=== PATIENT | female | born 1955 | race Caucasian/White ===

== ENCOUNTER → 2017-09-09 09:42 | Outpatient (CLI) | payer MEDICARE, SELFPAY ==
[2017-09-09 12:05] LABS: Absolute Lymphocyte Count 1.05 X10^3/ul (0.83-4.51); Absolute Neutrophil Count 4.3 X10^3/uL (2.0-7.7); Basophil# 0.03 X10^3/uL; Basophil% 0.5 % (0-1); Eosinophil# 0.11 X10^3/uL; Eosinophils% 1.8 % (0-5); Hematocrit 44.1 % (37-47); Hemoglobin 13.9 g/dl (12.0-15.0); Lymphocyte # 1.05 X10^3/ul (4.0); Lymphocyte % 17.5 % (19-41); Mean Corp Hgb Conc 31.5 g/gl (32-36); Mean Corpuscular Hgb 32.3 pg (27.0-32.0); Mean Corpuscular Volume 102.6 fL (81-99); Mean Platelet Vol. 10.1 fl (6.2-12.0); Monocyte# 0.54 X10^3/uL; Neutrophil # 4.25 X10^3/uL (2.7-7.7); Neutrophil % 70.9 % (47-70); Platelet Count 192 K/mm3 (150-450); RBC Distribution Width CV 14.4 % (11.6-14.6); RBC Distribution Width SD 52.9 fl (35.1-43.9)
[2017-09-09 12:07] LABS: POSITIVE COUNT NO; POSITIVE DIFFERENTIAL NO; POSITIVE MORPHOLOGY NO
[2017-09-09 12:17] LABS: ALB/GLOB Ratio 1.2 RATIO (0.9-2.4); AST(SGOT) 18 U/L (15-37); Alanine Aminotransfer ALT/SGPT 21 U/L (13-56); Albumin, Serum 3.6 g/dL (3.2-5.0); Alkaline Phosphatase 89 U/L (45-117); Anion Gap 8 (5-15); BUN 8 mg/dL (7-18); BUN/Creat Ratio 8.4 RATIO (10-20); Calcium,Total 9.3 mg/dL (8.5-10.1); Chloride 106 mmol/L (98-107); Creatinine, Serum 0.95 mg/dL (0.55-1.02); EST Glomerular Filtration Rate 63 mL/min (>60); Est Glom Filt Rate - Afr Amer 77 mL/min (>60); Globulin 3.1 g/dL (2.2-4.2); Glucose 96 mg/dL (74-106); Protein, Total 6.7 g/dL (6.4-8.2); Sodium Level 141 mmol/L (136-145); T4 Free Direct 1.73 ng/dL (0.76-1.46)
[2017-09-10 09:44] LABS: T3 Total - Triiodothyronine 0.95 ng/mL (0.6-1.81)
== END ==
PROVIDERS: Family Provider Family Medicine; PCP Family Medicine; Visit Provider Internal Medicine Rheumatology
DX: M05.79 Rheumatoid arthritis with rheumatoid factor of multiple sites without organ or systems involvement (principal); M17.0 Bilateral primary osteoarthritis of knee; E03.9 Hypothyroidism, unspecified; Z79.899 Other long term (current) drug therapy
CPT/HCPCS: 36415; 80053; 84439; 84443; 84480; 85025

== ENCOUNTER → 2017-12-07 09:10 | Outpatient (CLI) | payer MEDICARE, SELFPAY ==
--- NOTE | 2017-12-07 09:10 | DT_ITS ---
This patient was seen during an EMR downtime December 06, 2017 - December 13, 2017. This patient may have a combination of paper and electronic documentation or all paper documentation. All documentation is viewable within the e-chart portion of [employer] for each patient visit.
[2017-12-10 09:45] LABS: AST(SGOT) 16 U/L (15-37); Alanine Aminotransfer ALT/SGPT 18 U/L (13-56); Albumin, Serum 3.4 g/dL (3.2-5.0); Alkaline Phosphatase 91 U/L (45-117); Anion Gap 9 (5-15); BUN 11 mg/dL (7-18); BUN/Creat Ratio 12.1 RATIO (10-20); Chloride 109 mmol/L (98-107); Creatinine, Serum 0.91 mg/dL (0.55-1.02); EST Glomerular Filtration Rate 67 mL/min (>60); Est Glom Filt Rate - Afr Amer 81 mL/min (>60); Globulin 3.4 g/dL (2.2-4.2); Glucose 109 mg/dL (74-106); Potassium 4.3 mmol/L (3.5-5.1); Protein, Total 6.8 g/dL (6.4-8.2); Sodium Level 143 mmol/L (136-145)
[2017-12-13 17:39] LABS: Basophil% 0.3 % (0-1); Eosinophils% 0.3 % (0-5); Hematocrit 44.5 % (37-47); Hemoglobin 14.4 g/dl (12.0-15.0); Lymphocyte % 12.1 % (19-41); Mean Corp Hgb Conc 32.4 g/gl (32-36); Mean Corpuscular Hgb 33.6 pg (27.0-32.0); Mean Corpuscular Volume 103.7 fL (81-99); Mean Platelet Vol. 10.6 fl (6.2-12.0); Monocyte% 5.7 % (0-10); Neutrophil % 81.4 % (47-70); POSITIVE COUNT NO; POSITIVE DIFFERENTIAL NO; POSITIVE MORPHOLOGY NO; Platelet Count 221 K/mm3 (150-450); RBC Distribution Width CV 14.1 % (11.6-14.6); RBC Distribution Width SD 53.3 fl (35.1-43.9); Red Blood Count 4.29 M/mm3 (4.2-5.4)
[2017-12-13 17:40] LABS: Absolute Lymphocyte Count 0.72 X10^3/ul (0.83-4.51); Absolute Neutrophil Count 4.9 X10^3/uL (2.0-7.7); Basophil# 0.02 X10^3/uL; Eosinophil# 0.02 X10^3/uL; Lymphocyte # 0.72 X10^3/ul (4.0); Monocyte# 0.34 X10^3/uL; Neutrophil # 4.86 X10^3/uL (2.7-7.7)
== END ==
PROVIDERS: Family Provider Family Medicine; PCP Family Medicine; Visit Provider Internal Medicine Rheumatology
DX: M05.741 Rheumatoid arthritis with rheumatoid factor of right hand without organ or systems involvement (principal); Z79.899 Other long term (current) drug therapy; M17.0 Bilateral primary osteoarthritis of knee; E03.9 Hypothyroidism, unspecified
CPT/HCPCS: 36415; 80053; 85025

== ENCOUNTER → 2017-12-15 09:08 | Outpatient (CLI) | payer MEDICARE, SELFPAY ==
[2017-12-15 11:20] LABS: T4 Free Direct 1.68 ng/dL (0.76-1.46)
[2017-12-15 11:37] LABS: T3 Total - Triiodothyronine 0.82 ng/mL (0.6-1.81)
== END ==
PROVIDERS: Family Provider Family Medicine; PCP Family Medicine; Visit Provider Family Medicine
DX: E03.9 Hypothyroidism, unspecified (principal)
CPT/HCPCS: 36415; 84439; 84443; 84480

== ENCOUNTER → 2018-02-16 09:38 | Outpatient (CLI) | payer MEDICARE, SELFPAY ==
[2018-02-16 12:40] LABS: Absolute Neutrophil Count 3.8 X10^3/uL (2.0-7.7); Basophil# 0.03 X10^3/uL; Basophil% 0.5 % (0-1); Eosinophil# 0.13 X10^3/uL; Eosinophils% 2.3 % (0-5); Hematocrit 45.2 % (37-47); Hemoglobin 14.1 g/dl (12.0-15.0); Lymphocyte % 26.9 % (19-41); Mean Corp Hgb Conc 31.2 g/gl (32-36); Mean Corpuscular Hgb 32.6 pg (27.0-32.0); Mean Corpuscular Volume 104.6 fL (81-99); Mean Platelet Vol. 10.7 fl (6.2-12.0); Monocyte# 0.11 X10^3/uL; Neutrophil % 68.1 % (47-70); Platelet Count 188 K/mm3 (150-450); RBC Distribution Width CV 14.4 % (11.6-14.6); RBC Distribution Width SD 54.6 fl (35.1-43.9); Red Blood Count 4.32 M/mm3 (4.2-5.4); White Blood Count 5.6 K/mm3 (4.4-11.0)
[2018-02-16 12:44] LABS: POSITIVE COUNT NO; POSITIVE DIFFERENTIAL NO; POSITIVE MORPHOLOGY NO
[2018-02-16 12:54] LABS: T3 Total - Triiodothyronine 0.85 ng/mL (0.6-1.81)
[2018-02-16 13:06] LABS: ALB/GLOB Ratio 1.1 RATIO (0.9-2.4); AST(SGOT) 25 U/L (15-37); Alanine Aminotransfer ALT/SGPT 25 U/L (13-56); Albumin, Serum 3.6 g/dL (3.2-5.0); Alkaline Phosphatase 86 U/L (45-117); Anion Gap 5 (5-15); BUN 12 mg/dL (7-18); Chloride 108 mmol/L (98-107); EST Glomerular Filtration Rate 60 mL/min (>60); Est Glom Filt Rate - Afr Amer 72 mL/min (>60); Globulin 3.2 g/dL (2.2-4.2); Glucose 80 mg/dL (74-106); Protein, Total 6.8 g/dL (6.4-8.2); Sodium Level 140 mmol/L (136-145); T4 Free Direct 1.59 ng/dL (0.76-1.46); Thyroid Stim Hormone (TSH) 1.64 uIU/mL (0.358-3.74)
== END ==
PROVIDERS: Family Provider Family Medicine; PCP Family Medicine; Visit Provider Family Medicine
DX: M05.741 Rheumatoid arthritis with rheumatoid factor of right hand without organ or systems involvement (principal); E03.9 Hypothyroidism, unspecified; M17.0 Bilateral primary osteoarthritis of knee; Z79.899 Other long term (current) drug therapy
CPT/HCPCS: 36415; 80053; 84439; 84443; 84480; 85025

== ENCOUNTER → 2018-05-18 09:54 | Outpatient (CLI) | payer MEDICARE, SELFPAY ==
[2018-05-18 12:14] LABS: Absolute Lymphocyte Count 0.95 X10^3/ul (0.83-4.51); Absolute Neutrophil Count 5.7 X10^3/uL (2.0-7.7); Basophil# 0.02 X10^3/uL; Basophil% 0.3 % (0-1); Eosinophil# 0.05 X10^3/uL; Eosinophils% 0.7 % (0-5); Hematocrit 42.5 % (37-47); Hemoglobin 14.4 g/dl (12.0-15.0); Lymphocyte # 0.95 X10^3/ul (4.0); Lymphocyte % 13.2 % (19-41); Mean Corp Hgb Conc 33.9 g/gl (32-36); Mean Corpuscular Hgb 34.2 pg (27.0-32.0); Mean Platelet Vol. 10.3 fl (6.2-12.0); Monocyte# 0.43 X10^3/uL; Neutrophil # 5.74 X10^3/uL (2.7-7.7); Neutrophil % 79.7 % (47-70); Platelet Count 210 K/mm3 (150-450); RBC Distribution Width CV 13.6 % (11.6-14.6); RBC Distribution Width SD 50.5 fl (35.1-43.9); Red Blood Count 4.21 M/mm3 (4.2-5.4); White Blood Count 7.2 K/mm3 (4.4-11.0)
[2018-05-18 12:23] LABS: POSITIVE COUNT NO; POSITIVE DIFFERENTIAL NO; POSITIVE MORPHOLOGY NO
[2018-05-18 12:32] LABS: AST(SGOT) 16 U/L (15-37); Alanine Aminotransfer ALT/SGPT 23 U/L (13-56); Albumin, Serum 3.5 g/dL (3.2-5.0); Alkaline Phosphatase 90 U/L (45-117); Anion Gap 8 (5-15); BUN 10 mg/dL (7-18); BUN/Creat Ratio 10.5 RATIO (10-20); Calcium,Total 9.1 mg/dL (8.5-10.1); Chloride 107 mmol/L (98-107); Creatinine, Serum 0.95 mg/dL (0.55-1.02); EST Glomerular Filtration Rate 63 mL/min (>60); Est Glom Filt Rate - Afr Amer 76 mL/min (>60); Globulin 3.5 g/dL (2.2-4.2); Glucose 93 mg/dL (74-106); Sodium Level 143 mmol/L (136-145)
[2018-05-18 12:40] LABS: Cholesterol 187 mg/dL (200); High Density Lipoprotein 60 mg/dL; T3 Total - Triiodothyronine 0.63 ng/mL (0.6-1.81); T4 Free Direct 1.45 ng/dL (0.76-1.46); Thyroid Stim Hormone (TSH) 1.11 uIU/mL (0.358-3.74); Triglycerides 74 mg/dL; Very Low Density Lipoprotein 15 mg/dL (5-40)
== END ==
PROVIDERS: Internal Medicine Rheumatology; Family Provider Family Medicine; PCP Family Medicine; Referring Provider Family Medicine; Visit Provider Family Medicine
DX: M05.70 Rheumatoid arthritis with rheumatoid factor of unspecified site without organ or systems involvement (principal); M17.0 Bilateral primary osteoarthritis of knee; E03.9 Hypothyroidism, unspecified; E78.5 Hyperlipidemia, unspecified; Z79.899 Other long term (current) drug therapy
CPT/HCPCS: 36415; 80053; 80061; 84439; 84443; 84480; 85025

== ENCOUNTER → 2018-08-18 09:55 | Outpatient (CLI) | payer MEDICARE, SELFPAY ==
[2018-08-18 12:24] LABS: Absolute Lymphocyte Count 1.45 X10^3/ul (0.83-4.51); Absolute Neutrophil Count 4.1 X10^3/uL (2.0-7.7); Basophil# 0.03 X10^3/uL; Basophil% 0.5 % (0-1); Eosinophil# 0.16 X10^3/uL; Eosinophils% 2.6 % (0-5); Hematocrit 46.3 % (37-47); Hemoglobin 14.7 g/dl (12.0-15.0); Lymphocyte # 1.45 X10^3/ul (4.0); Lymphocyte % 23.3 % (19-41); Mean Corp Hgb Conc 31.7 g/gl (32-36); Mean Corpuscular Hgb 33.3 pg (27.0-32.0); Mean Corpuscular Volume 104.8 fL (81-99); Mean Platelet Vol. 10.4 fl (6.2-12.0); Monocyte# 0.47 X10^3/uL; Monocyte% 7.6 % (0-10); Neutrophil # 4.08 X10^3/uL (2.7-7.7); Neutrophil % 65.5 % (47-70); Platelet Count 196 K/mm3 (150-450); RBC Distribution Width CV 14.3 % (11.6-14.6); RBC Distribution Width SD 53.7 fl (35.1-43.9); Red Blood Count 4.42 M/mm3 (4.2-5.4); White Blood Count 6.2 K/mm3 (4.4-11.0)
[2018-08-18 12:25] LABS: POSITIVE COUNT NO; POSITIVE DIFFERENTIAL NO; POSITIVE MORPHOLOGY NO
[2018-08-18 12:45] LABS: ALB/GLOB Ratio 1.1 RATIO (0.9-2.4); AST(SGOT) 19 U/L (15-37); Alanine Aminotransfer ALT/SGPT 25 U/L (13-56); Albumin, Serum 3.7 g/dL (3.2-5.0); Alkaline Phosphatase 90 U/L (45-117); Anion Gap 10 (5-15); BUN 12 mg/dL (7-18); BUN/Creat Ratio 11.3 RATIO (10-20); Calcium,Total 9.1 mg/dL (8.5-10.1); Chloride 107 mmol/L (98-107); Creatinine, Serum 1.06 mg/dL (0.55-1.02); EST Glomerular Filtration Rate 56 mL/min (>60); Est Glom Filt Rate - Afr Amer 67 mL/min (>60); Globulin 3.3 g/dL (2.2-4.2); Glucose 92 mg/dL (74-106); Potassium 3.9 mmol/L (3.5-5.1); Sodium Level 141 mmol/L (136-145)
[2018-08-18 12:52] LABS: T3 Total - Triiodothyronine 0.79 ng/mL (0.6-1.81); T4 Free Direct 1.27 ng/dL (0.76-1.46); Thyroid Stim Hormone (TSH) 3.54 uIU/mL (0.358-3.74)
== END ==
PROVIDERS: Family Provider Family Medicine; PCP Family Medicine; Referring Provider Internal Medicine Rheumatology; Visit Provider Internal Medicine Rheumatology
DX: M05.70 Rheumatoid arthritis with rheumatoid factor of unspecified site without organ or systems involvement (principal); M17.0 Bilateral primary osteoarthritis of knee; E03.9 Hypothyroidism, unspecified; Z79.899 Other long term (current) drug therapy
CPT/HCPCS: 36415; 80053; 84439; 84443; 84480; 85025

== ENCOUNTER → 2018-11-09 10:10 | Outpatient (CLI) | payer MEDICARE, SELFPAY ==
[2018-11-09 12:36] LABS: Absolute Lymphocyte Count 0.99 X10^3/ul (0.83-4.51); Absolute Neutrophil Count 4.4 X10^3/uL (2.0-7.7); Basophil# 0.02 X10^3/uL; Basophil% 0.3 % (0-1); Eosinophil# 0.14 X10^3/uL; Eosinophils% 2.3 % (0-5); Hematocrit 44.3 % (37-47); Hemoglobin 14.1 g/dl (12.0-15.0); Lymphocyte # 0.99 X10^3/ul (4.0); Lymphocyte % 16.2 % (19-41); Mean Corp Hgb Conc 31.8 g/gl (32-36); Mean Corpuscular Hgb 33.1 pg (27.0-32.0); Mean Platelet Vol. 10.8 fl (6.2-12.0); Monocyte# 0.56 X10^3/uL; Monocyte% 9.2 % (0-10); Neutrophil # 4.39 X10^3/uL (2.7-7.7); Neutrophil % 71.7 % (47-70); Platelet Count 206 K/mm3 (150-450); RBC Distribution Width CV 14.4 % (11.6-14.6); Red Blood Count 4.26 M/mm3 (4.2-5.4); White Blood Count 6.1 K/mm3 (4.4-11.0)
[2018-11-09 12:46] LABS: POSITIVE COUNT NO; POSITIVE DIFFERENTIAL NO; POSITIVE MORPHOLOGY NO
[2018-11-09 12:59] LABS: T3 Total - Triiodothyronine 0.68 ng/mL (0.6-1.81)
[2018-11-09 13:16] LABS: ALB/GLOB Ratio 1.1 RATIO (0.9-2.4); AST(SGOT) 15 U/L (15-37); Alanine Aminotransfer ALT/SGPT 24 U/L (13-56); Albumin, Serum 3.5 g/dL (3.2-5.0); Alkaline Phosphatase 86 U/L (45-117); Anion Gap 9 (5-15); BUN 10 mg/dL (7-18); BUN/Creat Ratio 10.1 RATIO (10-20); Calcium,Total 8.9 mg/dL (8.5-10.1); Chloride 108 mmol/L (98-107); Creatinine, Serum 0.99 mg/dL (0.55-1.02); EST Glomerular Filtration Rate 60 mL/min (>60); Est Glom Filt Rate - Afr Amer 72 mL/min (>60); Globulin 3.3 g/dL (2.2-4.2); Glucose 90 mg/dL (74-106); Potassium 3.9 mmol/L (3.5-5.1); Protein, Total 6.8 g/dL (6.4-8.2); Sodium Level 140 mmol/L (136-145); T4 Free Direct 1.53 ng/dL (0.76-1.46); Thyroid Stim Hormone (TSH) 3.56 uIU/mL (0.358-3.74)
== END ==
PROVIDERS: Family Provider Family Medicine; PCP Family Medicine; Referring Provider Internal Medicine Rheumatology; Visit Provider Internal Medicine Rheumatology
DX: M05.70 Rheumatoid arthritis with rheumatoid factor of unspecified site without organ or systems involvement (principal); M17.0 Bilateral primary osteoarthritis of knee; E03.9 Hypothyroidism, unspecified; Z79.899 Other long term (current) drug therapy
CPT/HCPCS: 36415; 80053; 84439; 84443; 84480; 85025

== ENCOUNTER → 2019-02-09 09:06 | Outpatient (CLI) | payer MEDICARE, SELFPAY ==
[2019-02-09 10:03] LABS: Absolute Lymphocyte Count 1.38 X10^3/uL (0.83-4.51); Absolute Neutrophil Count 4.5 X10^3/uL (2.0-7.7); Basophil# 0.03 X10^3/uL; Basophil% 0.5 % (0-1); Eosinophil# 0.07 X10^3/uL; Eosinophils% 1.1 % (0-5); Hematocrit 44.4 % (37-47); Hemoglobin 14.5 g/dL (12.0-15.0); Lymphocyte # 1.38 X10^3/ul (4.0); Lymphocyte % 20.9 % (19-41); Mean Corp Hgb Conc 32.7 g/dL (32-36); Mean Corpuscular Hgb 33.7 pg (27.0-32.0); Mean Corpuscular Volume 103.3 fL (81-99); Mean Platelet Vol. 10.2 fl (6.2-12.0); Monocyte# 0.55 X10^3/uL; Monocyte% 8.3 % (0-10); NRBC Flagged by Analyzer 0 % (0-5); Neutrophil # 4.52 X10^3/uL (2.7-7.7); Neutrophil % 68.6 % (47-70); Platelet Count 200 K/mm3 (150-450); RBC Distribution Width CV 14.2 % (11.6-14.6); RBC Distribution Width SD 53.4 fl (35.1-43.9); White Blood Count 6.6 K/mm3 (4.4-11.0)
[2019-02-09 10:29] LABS: T3 Total - Triiodothyronine 0.76 ng/mL (0.6-1.81)
[2019-02-09 10:31] LABS: T4 Free Direct 1.48 ng/dL (0.76-1.46); Thyroid Stim Hormone (TSH) 2.93 uIU/mL (0.358-3.74)
[2019-02-09 10:36] LABS: ALB/GLOB Ratio 1.1 RATIO (0.9-2.4); AST(SGOT) 17 U/L (15-37); Alanine Aminotransfer ALT/SGPT 26 U/L (13-56); Albumin, Serum 3.7 g/dL (3.2-5.0); Alkaline Phosphatase 83 U/L (45-117); Anion Gap 8 (5-15); BUN 13 mg/dL (7-18); BUN/Creat Ratio 11.8 RATIO (10-20); Calcium,Total 9.7 mg/dL (8.5-10.1); Chloride 108 mmol/L (98-107); EST Glomerular Filtration Rate 53 mL/min (>60); Est Glom Filt Rate - Afr Amer 64 mL/min (>60); Globulin 3.3 g/dL (2.2-4.2); Glucose 92 mg/dL (74-106); Potassium 3.9 mmol/L (3.5-5.1); Sodium Level 143 mmol/L (136-145)
== END ==
PROVIDERS: Family Provider Family Medicine; PCP Family Medicine; Referring Provider Internal Medicine Rheumatology; Visit Provider Internal Medicine Rheumatology
DX: M05.79 Rheumatoid arthritis with rheumatoid factor of multiple sites without organ or systems involvement (principal); M17.0 Bilateral primary osteoarthritis of knee; E03.9 Hypothyroidism, unspecified; Z79.899 Other long term (current) drug therapy
CPT/HCPCS: 36415; 80053; 84439; 84443; 84480; 85025

== ENCOUNTER → 2019-03-10 08:12 | Outpatient (CLI) | payer MEDICARE, SELFPAY ==
--- NOTE | 2019-03-10 08:15 | BI_ITS ---
MAMMOGRAPHY - BILATERAL SCREENING REASON FOR EXAM: Female, 63 years old. Routine annual screening examination. PERTINENT HISTORY: Non-contributory. TECHNIQUE: Digital bilateral breast keshawn (3D mammographic acquisition) in the CC and MLO projections. 2-D mediolateral oblique (MLO) and craniocaudad (CC) views of both breasts were obtained. CAD: Full Field Digital Mammography with Computer Added Detection was performed. COMPARISON: Comparison is made with prior study April 26, 2014 and May 16, 2012. FINDINGS: Breast Composition: There are scattered areas of fibroglandular density. There are no dominant masses or suspicious calcifications. No other significant abnormalities are identified. There has been no significant change since the prior study. BI/SCREEN MAMM (CAD) W/KESHAWN BILAT IMPRESSION: Stable bilateral screening mammogram. Yearly follow-up mammogram recommended. (A) ASSESSMENT CATEGORY: BIRADS Category 1: Negative. A letter regarding these results will be sent to the patient by the facility within 30 days. Approximately 10% of breast cancers are not detected by mammography. A normal mammogram should not delay biopsy of a clinically suspicious abnormality. [id number] Electronically Signed: Arcenio Esposito, at 9:46 EDT , Service support ,
== END ==
PROVIDERS: Family Provider Family Medicine; PCP Family Medicine; Referring Provider Family Medicine; Visit Provider Family Medicine
DX: Z12.31 Encounter for screening mammogram for malignant neoplasm of breast (principal)
CPT/HCPCS: 77063; 77067

== ENCOUNTER → 2019-05-10 09:31 | Outpatient (CLI) | payer MEDICARE, SELFPAY ==
[2019-05-10 12:25] LABS: Absolute Lymphocyte Count 0.87 X10^3/uL (0.83-4.51); Absolute Neutrophil Count 4.5 X10^3/uL (2.0-7.7); Basophil# 0.03 X10^3/uL; Basophil% 0.5 % (0-1); Eosinophils% 1.7 % (0-5); Hematocrit 44.6 % (37-47); Hemoglobin 14.1 g/dL (12.0-15.0); Lymphocyte # 0.87 X10^3/ul (4.0); Lymphocyte % 14.6 % (19-41); Mean Corp Hgb Conc 31.6 g/dL (32-36); Mean Corpuscular Hgb 33.3 pg (27.0-32.0); Mean Corpuscular Volume 105.4 fL (81-99); Mean Platelet Vol. 10.6 fl (6.2-12.0); Monocyte# 0.47 X10^3/uL; Monocyte% 7.9 % (0-10); NRBC Flagged by Analyzer 0 % (0-5); Neutrophil # 4.47 X10^3/uL (2.7-7.7); Neutrophil % 74.8 % (47-70); Platelet Count 190 K/mm3 (150-450); RBC Distribution Width CV 14.3 % (11.6-14.6); RBC Distribution Width SD 55.5 fl (35.1-43.9); Red Blood Count 4.23 M/mm3 (4.2-5.4)
[2019-05-10 12:46] LABS: ALB/GLOB Ratio 1.2 RATIO (0.9-2.4); AST(SGOT) 17 U/L (15-37); Alanine Aminotransfer ALT/SGPT 25 U/L (13-56); Albumin, Serum 3.6 g/dL (3.2-5.0); Alkaline Phosphatase 74 U/L (45-117); Anion Gap 10 (5-15); BUN 12 mg/dL (7-18); BUN/Creat Ratio 10.5 RATIO (10-20); Calcium,Total 9.2 mg/dL (8.5-10.1); Chloride 105 mmol/L (98-107); Creatinine, Serum 1.14 mg/dL (0.55-1.02); EST Glomerular Filtration Rate 51 mL/min (>60); Est Glom Filt Rate - Afr Amer 62 mL/min (>60); Globulin 3.1 g/dL (2.2-4.2); Glucose 94 mg/dL (74-106); Potassium 4.2 mmol/L (3.5-5.1); Protein, Total 6.7 g/dL (6.4-8.2); Sodium Level 141 mmol/L (136-145)
== END ==
PROVIDERS: Family Provider Family Medicine; PCP Family Medicine; Referring Provider Internal Medicine Rheumatology; Visit Provider Internal Medicine Rheumatology
DX: M05.70 Rheumatoid arthritis with rheumatoid factor of unspecified site without organ or systems involvement (principal); M17.0 Bilateral primary osteoarthritis of knee; E03.9 Hypothyroidism, unspecified; Z79.899 Other long term (current) drug therapy
CPT/HCPCS: 36415; 80053; 85025

== ENCOUNTER → 2019-08-09 09:45 | Outpatient (CLI) | payer MEDICARE, SELFPAY ==
[2019-08-09 12:23] LABS: Absolute Lymphocyte Count 1.11 X10^3/uL (0.83-4.51); Absolute Neutrophil Count 4.6 X10^3/uL (2.0-7.7); Basophil# 0.04 X10^3/uL; Basophil% 0.6 % (0-1); Eosinophil# 0.14 X10^3/uL; Eosinophils% 2.2 % (0-5); Hematocrit 44.6 % (37-47); Hemoglobin 14.6 g/dL (12.0-15.0); Lymphocyte # 1.11 X10^3/ul (4.0); Lymphocyte % 17.3 % (19-41); Mean Corp Hgb Conc 32.7 g/dL (32-36); Mean Corpuscular Hgb 34.4 pg (27.0-32.0); Mean Corpuscular Volume 104.9 fL (81-99); Mean Platelet Vol. 10.8 fl (6.2-12.0); Monocyte# 0.47 X10^3/uL; Monocyte% 7.3 % (0-10); NRBC Flagged by Analyzer 0 % (0-5); Neutrophil # 4.62 X10^3/uL (2.7-7.7); Neutrophil % 72.3 % (47-70); Platelet Count 205 K/mm3 (150-450); RBC Distribution Width CV 13.9 % (11.6-14.6); RBC Distribution Width SD 53.4 fl (35.1-43.9); Red Blood Count 4.25 M/mm3 (4.2-5.4); White Blood Count 6.4 K/mm3 (4.4-11.0)
[2019-08-09 12:36] LABS: ALB/GLOB Ratio 1.1 RATIO (0.9-2.4); AST(SGOT) 15 U/L (15-37); Alanine Aminotransfer ALT/SGPT 24 U/L (12-78); Albumin, Serum 3.6 g/dL (3.4-5.0); Alkaline Phosphatase 83 U/L (50-136); Anion Gap 5 (5-15); BUN 9 mg/dL (7-18); BUN/Creat Ratio 8.7 RATIO (10-20); Calcium,Total 9.5 mg/dL (8.5-10.1); Chloride 108 mmol/L (98-107); Creatinine, Serum 1.04 mg/dL (0.55-1.20); EST Glomerular Filtration Rate 57 mL/min (>60); Est Glom Filt Rate - Afr Amer 69 mL/min (>60); Globulin 3.3 g/dL (2.3-3.5); Glucose 87 mg/dL (70-110); Potassium 3.8 mmol/L (3.5-5.1); Protein, Total 6.9 g/dL (6.4-8.2); Sodium Level 140 mmol/L (136-145)
[2019-08-09 12:44] LABS: T4 Free Direct 1.27 ng/dL (0.76-1.46); Thyroid Stim Hormone (TSH) 7.22 uIU/mL (0.358-3.74)
[2019-08-09 13:21] LABS: T3 Total - Triiodothyronine 0.74 ng/mL (0.6-1.81)
== END ==
PROVIDERS: PCP Family Medicine; Referring Provider Internal Medicine Rheumatology; Visit Provider Internal Medicine Rheumatology
DX: M05.70 Rheumatoid arthritis with rheumatoid factor of unspecified site without organ or systems involvement (principal); M17.0 Bilateral primary osteoarthritis of knee; E03.9 Hypothyroidism, unspecified; Z79.899 Other long term (current) drug therapy
CPT/HCPCS: 36415; 80053; 84439; 84443; 84480; 85025

== ENCOUNTER → 2019-11-13 12:41 | Outpatient (CLI) | payer MEDICARE, SELFPAY ==
[2019-11-13 14:52] LABS: Absolute Lymphocyte Count 0.78 X10^3/uL (0.83-4.51); Absolute Neutrophil Count 5.7 X10^3/uL (2.0-7.7); Basophil# 0.05 X10^3/uL; Basophil% 0.7 % (0-1); Eosinophil# 0.09 X10^3/uL; Eosinophils% 1.2 % (0-5); Hematocrit 43.2 % (37-47); Hemoglobin 13.9 g/dL (12.0-15.0); Lymphocyte # 0.78 X10^3/ul (4.0); Lymphocyte % 10.7 % (19-41); Mean Corp Hgb Conc 32.2 g/dL (32-36); Mean Corpuscular Hgb 33.6 pg (27.0-32.0); Mean Corpuscular Volume 104.3 fL (81-99); Monocyte# 0.63 X10^3/uL; Monocyte% 8.7 % (0-10); NRBC Flagged by Analyzer 0 % (0-5); Neutrophil # 5.68 X10^3/uL (2.7-7.7); Neutrophil % 78.1 % (47-70); Platelet Count 181 K/mm3 (150-450); RBC Distribution Width CV 14.6 % (11.6-14.6); RBC Distribution Width SD 55.2 fl (35.1-43.9); Red Blood Count 4.14 M/mm3 (4.2-5.4); White Blood Count 7.3 K/mm3 (4.4-11.0)
[2019-11-13 15:14] LABS: ALB/GLOB Ratio 1.1 RATIO (0.9-2.4); AST(SGOT) 16 U/L (15-37); Alanine Aminotransfer ALT/SGPT 22 U/L (13-56); Albumin, Serum 3.7 g/dL (3.2-5.0); Alkaline Phosphatase 84 U/L (45-117); Anion Gap 8 (5-15); BUN 13 mg/dL (7-18); BUN/Creat Ratio 13.1 RATIO (10-20); Calcium,Total 9.1 mg/dL (8.5-10.1); Chloride 108 mmol/L (98-107); EST Glomerular Filtration Rate 60 mL/min (>60); Est Glom Filt Rate - Afr Amer 72 mL/min (>60); Free T3 2.2 pg/mL (2.18-3.98); Globulin 3.4 g/dL (2.2-4.2); Glucose 103 mg/dL (74-106); Potassium 3.6 mmol/L (3.5-5.1); Protein, Total 7.1 g/dL (6.4-8.2); Sodium Level 140 mmol/L (136-145); T4 Free Direct 1.43 ng/dL (0.76-1.46); Thyroid Stim Hormone (TSH) 2.31 uIU/mL (0.358-3.74)
== END ==
PROVIDERS: PCP Family Medicine; Referring Provider Family Medicine; Visit Provider Family Medicine
DX: M05.70 Rheumatoid arthritis with rheumatoid factor of unspecified site without organ or systems involvement (principal); M17.0 Bilateral primary osteoarthritis of knee; E03.9 Hypothyroidism, unspecified; Z79.899 Other long term (current) drug therapy
CPT/HCPCS: 36415; 80053; 84439; 84443; 84481; 85025

== ENCOUNTER → 2020-02-02 09:51 | Outpatient (CLI) | payer MEDICARE, SELFPAY ==
[2020-02-02 12:16] LABS: Absolute Lymphocyte Count 0.82 X10^3/uL (0.83-4.51); Absolute Neutrophil Count 4.9 X10^3/uL (2.0-7.7); Basophil# 0.04 X10^3/uL; Basophil% 0.6 % (0-1); Eosinophil# 0.07 X10^3/uL; Eosinophils% 1.1 % (0-5); Hematocrit 44.9 % (37-47); Hemoglobin 14.2 g/dL (12.0-15.0); Lymphocyte # 0.82 X10^3/ul (4.0); Lymphocyte % 12.7 % (19-41); Mean Corp Hgb Conc 31.6 g/dL (32-36); Mean Corpuscular Hgb 33.6 pg (27.0-32.0); Mean Corpuscular Volume 106.1 fL (81-99); Mean Platelet Vol. 10.3 fl (6.2-12.0); Monocyte# 0.67 X10^3/uL; Monocyte% 10.3 % (0-10); NRBC Flagged by Analyzer 0 % (0-5); Neutrophil # 4.86 X10^3/uL (2.7-7.7); Platelet Count 192 K/mm3 (150-450); RBC Distribution Width CV 14.8 % (11.6-14.6); RBC Distribution Width SD 57.1 fl (35.1-43.9); Red Blood Count 4.23 M/mm3 (4.2-5.4); White Blood Count 6.5 K/mm3 (4.4-11.0)
[2020-02-02 12:47] LABS: ALB/GLOB Ratio 1.1 RATIO (0.9-2.4); AST(SGOT) 15 U/L (15-37); Alanine Aminotransfer ALT/SGPT 19 U/L (13-56); Albumin, Serum 3.7 g/dL (3.2-5.0); Alkaline Phosphatase 81 U/L (45-117); Anion Gap 6 (5-15); BUN 13 mg/dL (7-18); Calcium,Total 9.1 mg/dL (8.5-10.1); Chloride 108 mmol/L (98-107); Creatinine, Serum 0.93 mg/dL (0.55-1.02); EST Glomerular Filtration Rate 64 mL/min (>60); Est Glom Filt Rate - Afr Amer 78 mL/min (>60); Globulin 3.4 g/dL (2.2-4.2); Glucose 91 mg/dL (74-106); Protein, Total 7.1 g/dL (6.4-8.2); Sodium Level 140 mmol/L (136-145); T4 Free Direct 1.74 ng/dL (0.76-1.46); Thyroid Stim Hormone (TSH) 1.22 uIU/mL (0.358-3.74)
[2020-02-02 22:29] LABS: Free T3 2.6 pg/mL (2.18-3.98)
== END ==
PROVIDERS: PCP Family Medicine; Referring Provider Family Medicine; Visit Provider Family Medicine
DX: M05.79 Rheumatoid arthritis with rheumatoid factor of multiple sites without organ or systems involvement (principal); M17.0 Bilateral primary osteoarthritis of knee; E03.9 Hypothyroidism, unspecified; Z79.899 Other long term (current) drug therapy
CPT/HCPCS: 36415; 80053; 84439; 84443; 84481; 85025

== ENCOUNTER → 2020-04-26 10:37 | Outpatient (CLI) | payer MEDICARE, SELFPAY ==
[2020-04-26 12:15] LABS: Absolute Lymphocyte Count 0.89 X10^3/uL (0.83-4.51); Absolute Neutrophil Count 4.2 X10^3/uL (2.0-7.7); Basophil# 0.05 X10^3/uL; Basophil% 0.9 % (0-1); Eosinophil# 0.07 X10^3/uL; Eosinophils% 1.2 % (0-5); Hematocrit 46.5 % (37-47); Hemoglobin 14.4 g/dL (12.0-15.0); Lymphocyte # 0.89 X10^3/ul (4.0); Lymphocyte % 15.1 % (19-41); Mean Corpuscular Hgb 33.5 pg (27.0-32.0); Mean Corpuscular Volume 108.1 fL (81-99); Mean Platelet Vol. 9.9 fl (6.2-12.0); Monocyte% 10.2 % (0-10); NRBC Flagged by Analyzer 0 % (0-5); Neutrophil # 4.23 X10^3/uL (2.7-7.7); Neutrophil % 71.9 % (47-70); Platelet Count 221 K/mm3 (150-450); RBC Distribution Width CV 14.6 % (11.6-14.6); RBC Distribution Width SD 57.7 fl (35.1-43.9); White Blood Count 5.9 K/mm3 (4.4-11.0)
[2020-04-26 12:28] LABS: ALB/GLOB Ratio 1.1 RATIO (0.9-2.4); AST(SGOT) 14 U/L (15-37); Alanine Aminotransfer ALT/SGPT 20 U/L (13-56); Albumin, Serum 3.7 g/dL (3.2-5.0); Alkaline Phosphatase 85 U/L (45-117); Anion Gap 8 (5-15); BUN 11 mg/dL (7-18); BUN/Creat Ratio 10.2 RATIO (10-20); Calcium,Total 9.5 mg/dL (8.5-10.1); Chloride 105 mmol/L (98-107); Creatinine, Serum 1.08 mg/dL (0.55-1.02); EST Glomerular Filtration Rate 54 mL/min (>60); Est Glom Filt Rate - Afr Amer 66 mL/min (>60); Globulin 3.3 g/dL (2.2-4.2); Glucose 93 mg/dL (74-106); Potassium 4.1 mmol/L (3.5-5.1); Sodium Level 140 mmol/L (136-145)
== END ==
LOC: LAB.FUTURE 10:41 → MTLAB 04-29 08:31
PROVIDERS: PCP Family Medicine; Referring Provider Internal Medicine Rheumatology; Visit Provider Internal Medicine Rheumatology
DX: M05.79 Rheumatoid arthritis with rheumatoid factor of multiple sites without organ or systems involvement (principal); M17.0 Bilateral primary osteoarthritis of knee; E03.9 Hypothyroidism, unspecified; Z79.899 Other long term (current) drug therapy
CPT/HCPCS: 36415; 80053; 85025

== ENCOUNTER → 2020-07-12 09:32 | Outpatient (CLI) | payer MEDICARE, SELFPAY ==
[2020-07-12 12:31] LABS: Absolute Lymphocyte Count 0.92 X10^3/uL (0.83-4.51); Absolute Neutrophil Count 4.2 X10^3/uL (2.0-7.7); Basophil# 0.02 X10^3/uL; Basophil% 0.3 % (0-1); Eosinophil# 0.11 X10^3/uL; Eosinophils% 1.9 % (0-5); Hematocrit 46.2 % (37-47); Hemoglobin 14.5 g/dL (12.0-15.0); Lymphocyte # 0.92 X10^3/ul (4.0); Lymphocyte % 15.8 % (19-41); Mean Corp Hgb Conc 31.4 g/dL (32-36); Mean Corpuscular Hgb 33.6 pg (27.0-32.0); Mean Corpuscular Volume 106.9 fL (81-99); Mean Platelet Vol. 10.7 fl (6.2-12.0); Monocyte# 0.54 X10^3/uL; Monocyte% 9.3 % (0-10); NRBC Flagged by Analyzer 0 % (0-5); Neutrophil % 72.2 % (47-70); Platelet Count 188 K/mm3 (150-450); RBC Distribution Width CV 14.1 % (11.6-14.6); RBC Distribution Width SD 55.8 fl (35.1-43.9); Red Blood Count 4.32 M/mm3 (4.2-5.4); White Blood Count 5.8 K/mm3 (4.4-11.0)
[2020-07-12 13:00] LABS: ALB/GLOB Ratio 1.3 RATIO (0.9-2.4); AST(SGOT) 14 U/L (15-37); Alanine Aminotransfer ALT/SGPT 23 U/L (13-56); Albumin, Serum 3.9 g/dL (3.2-5.0); Alkaline Phosphatase 81 U/L (45-117); Anion Gap 3 (5-15); BUN 12 mg/dL (7-18); BUN/Creat Ratio 13.3 RATIO (10-20); Calcium,Total 9.4 mg/dL (8.5-10.1); Chloride 109 mmol/L (98-107); EST Glomerular Filtration Rate 67 mL/min (>60); Est Glom Filt Rate - Afr Amer 81 mL/min (>60); Free T3 2.4 pg/mL (2.18-3.98); Globulin 3.1 g/dL (2.2-4.2); Glucose 88 mg/dL (74-106); Potassium 3.8 mmol/L (3.5-5.1); Sodium Level 143 mmol/L (136-145); T4 Free Direct 1.48 ng/dL (0.76-1.46); Thyroid Stim Hormone (TSH) 0.73 uIU/mL (0.358-3.74)
== END ==
PROVIDERS: PCP Family Medicine; Referring Provider Family Medicine; Visit Provider Family Medicine
DX: E03.9 Hypothyroidism, unspecified (principal)
CPT/HCPCS: 36415; 80053; 84439; 84443; 84481; 85025

== ENCOUNTER → 2020-10-11 09:36 | Outpatient (CLI) | payer MEDICARE, SELFPAY ==
[2020-10-11 12:37] LABS: Absolute Lymphocyte Count 1.02 X10^3/uL (0.83-4.51); Absolute Neutrophil Count 3.9 X10^3/uL (2.0-7.7); Basophil# 0.04 X10^3/uL; Basophil% 0.7 % (0-1); Eosinophil# 0.13 X10^3/uL; Eosinophils% 2.3 % (0-5); Hematocrit 45.7 % (37-47); Hemoglobin 13.9 g/dL (12.0-15.0); Lymphocyte # 1.02 X10^3/ul (4.0); Lymphocyte % 17.9 % (19-41); Mean Corp Hgb Conc 30.4 g/dL (32-36); Mean Corpuscular Volume 108.6 fL (81-99); Mean Platelet Vol. 9.7 fl (6.2-12.0); Monocyte# 0.58 X10^3/uL; Monocyte% 10.2 % (0-10); NRBC Flagged by Analyzer 0 % (0-5); Neutrophil # 3.89 X10^3/uL (2.7-7.7); Neutrophil % 68.2 % (47-70); Platelet Count 216 K/mm3 (150-450); RBC Distribution Width CV 14.5 % (11.6-14.6); RBC Distribution Width SD 57.8 fl (35.1-43.9); Red Blood Count 4.21 M/mm3 (4.2-5.4); White Blood Count 5.7 K/mm3 (4.4-11.0)
[2020-10-11 13:17] LABS: ALB/GLOB Ratio 1.1 RATIO (0.9-2.4); AST(SGOT) 13 U/L (15-37); Alanine Aminotransfer ALT/SGPT 20 U/L (13-56); Alkaline Phosphatase 81 U/L (45-117); Anion Gap 7 (5-15); BUN 11 mg/dL (7-18); BUN/Creat Ratio 11.5 RATIO (10-20); Calcium,Total 9.4 mg/dL (8.5-10.1); Chloride 105 mmol/L (98-107); Creatinine, Serum 0.95 mg/dL (0.55-1.02); EST Glomerular Filtration Rate 62 mL/min (>60); Est Glom Filt Rate - Afr Amer 76 mL/min (>60); Globulin 3.5 g/dL (2.2-4.2); Glucose 97 mg/dL (74-106); Potassium 3.7 mmol/L (3.5-5.1); Protein, Total 7.5 g/dL (6.4-8.2); Sodium Level 142 mmol/L (136-145)
== END ==
PROVIDERS: PCP Family Medicine; Referring Provider Internal Medicine Rheumatology; Visit Provider Internal Medicine Rheumatology
DX: M05.70 Rheumatoid arthritis with rheumatoid factor of unspecified site without organ or systems involvement (principal); Z79.899 Other long term (current) drug therapy; M17.0 Bilateral primary osteoarthritis of knee; E03.9 Hypothyroidism, unspecified
CPT/HCPCS: 36415; 80053; 85025

== ENCOUNTER 2021-11-29 17:31 | Observation (INO) | payer MEDICARE, SELFPAY ==
[2021-11-29 17:33] VITALS: BP 180/94; PULSE 69; RESP 15; TEMP 36.9; O2SAT 95; BMI 58.6
[2021-11-29 17:35] VITALS: BP 180/94; PULSE 69; RESP 15; TEMP 36.9; O2SAT 95
--- NOTE | 2021-11-29 17:50 | EKG12_ITS ---
Test Reason : WEAKNESS Blood Pressure : / mmHG Vent. Rate : 066 BPM Atrial Rate : 066 BPM P-R Int : 172 ms QRS Dur : 084 ms QT Int : 408 ms P-R-T Axes : 049 016 023 degrees QTc Int : 427 ms Normal sinus rhythm Normal ECG Confirmed by BHUPINDER BAIG, HELEN ([id number]), pictures editor ZACH YIN ([id number]) on 12/02/2021 1:13:16 PM Referred By: ISMAEL/BISMARK Confirmed By:HELEN ROE MD
--- NOTE | 2021-11-29 17:53 | NURSING ---
NO OLD EKGS
[2021-11-29] MEDS: Morphine 4 MG/ML Syringe IV (17:56)
[2021-11-29] MEDS: Ondansetron 4 MG/2 ML Vial IV (17:56)
--- NOTE | 2021-11-29 18:01 | EX.ED.DYSGE1 ---
HPI <SANDRA Tomas - Last Filed: 11/29/21 18:55> History of Present Illness Chief Complaint: Weakness Narrative Narrative: 66-year-old female with history of rheumatoid arthritis, hypothyroidism who for the last 2 years has not been following up with her specialist or PCP. Patient lives at a house by herself, patient over the last 6 to 8 months has gradually declined to where she can no longer get out of bed by herself, she cannot leave the house or her room. Patient has so much pain in her joints, she no longer close her fingers, both legs are severely edematous and she finally listened to family and came to the emergency department. The family and the patient both agree that she cannot return home secondary to not being able to care for herself. She also needs put back on all different kind of medications for rheumatoid arthritis as well as hypothyroidism. Patient denies any fevers or chills. Patient denies any infectious symptoms PFSH <SANDRA Tomas - Last Filed: 11/29/21 18:55> PFSH Medical History Arthritis Ex-smoker Home Medications acetaminophen [Tylenol Ex Str Arthritis Pain] 1,000 mg PO DAILY 11/29/21 [History Last Taken 11/28/21] ibuprofen [Advil] 800 mg PO DAILY 11/29/21 [History Last Taken Unknown] Allergy/AdvReac Type Severity Reaction Status Date / Time No Known Allergies Allergy Verified 11/29/21 17:35 Family History (Updated 11/29/21 @ 21:[address] Ajith Villavicencio MD) Other Hypertension Surgical History History of tonsillectomy Social History (Updated 11/29/21 @ 21:[address] Ajith Villavicencio MD) Smoking Status: Former smoker ROS <SANDRA Tomas - Last Filed: 11/29/21 18:55> ROS ED ROS Narrative Constitutional: Negative for fever, chills, weight loss. Positive for generalized weakness Eyes: Negative for vision loss, vision change, double vision ENT: Negative for any sore throat, ear pain, congestion Cardiovascular: Negative for any chest pain, tightness, palpitations Respiratory: Negative for any cough, sputum production, hemoptysis, dyspnea, dyspnea on exertion, orthopnea Gastrointestinal: Negative for any abdominal pain, nausea, vomiting, diarrhea, constipation, blood in stool, blood in vomit : Negative for any urinary frequency, dysuria, retention, blood in urine Muscle skeletal: Negative for any neck pain, back pain. Positive for myalgias, arthralgias, joint stiffness to shoulders knees, hands. Neurological: Negative for any headache, syncope, numbness or tingling, dizziness Skin: Negative for any rashes, lumps, itching, abrasions, lacerations Psychiatric: Negative for any anxiety, stress, suicidal ideation, homicidal ideation. Positive for generalized feeling of depression Hematologic: Negative for any easy bruising, excessive bruising, easy bleeding Allergies: Negative for any eczema, hives, rash EXAM <SANDRA Tomas - Last Filed: 11/29/21 18:55> Physical Exam Narrative Exam Narrative: Vital signs reviewed. Patient is alert and orient x4. HEET: Head normocephalic atraumatic, TMs clear bilaterally. Posterior pharynx is clear, moist mucous membranes. Nares clear bilaterally. Neck: Supple with no lymphadenopathy or tenderness. No signs of meningismus, negative jolt sign. Cardiac: Regular rate and rhythm no murmurs gallops or rubs, equal peripheral pulses bilaterally. Respiratory: Lungs clear to auscultation bilaterally. No chest tenderness. Abdomen: Soft, nontender, nondistended. No abdominal bruit or pulsatile masses. No hepatosplenomegaly Extremities: Patient has severe swelling to bilateral lower extremities. This is not pitting, this has been ongoing and getting worse over the last 5 months according to family. Patient legs way so much that she is unable to lift them off the bed, walk without a walker. There appears to be no cellulitis noted. Neuro: Cranial nerves II through XII intact, no focal neurological deficits. Skin: Clean dry and intact with no rash, purpura, petechiae, vesicles or pustules. Patient has dry flaking skin throughout her lower extremities. Backs/flank: No CVA tenderness, no midline spinal tenderness, no deformity. Psych: Normal mood and affect. No SI, HI or acute psychosis. Const Vital Signs: 11/29/21 17:33 11/29/21 17:35 11/29/21 18:27 Temperature 98.4 F 98.4 F Temperature Source Temporal Temporal Pulse Rate 69 69 Respiratory Rate 15 15 Respiratory Effort Normal Non-Labored Respiratory Pattern Normal Blood Pressure 180/94 H 180/94 H Blood Pressure Mean 122 122 Pulse Ox 95 95 Oxygen Delivery Method Room Air Room Air 11/29/21 19:42 Temperature Temperature Source Pulse Rate 55 L Respiratory Rate 18 Respiratory Effort Respiratory Pattern Blood Pressure 161/99 H Blood Pressure Mean 119 Pulse Ox 94 Oxygen Delivery Method Room Air Positive obese Nutritional Appearance: obese <Dr. Jerry Norris DO - Last Filed: 11/29/21 23:56> Physical Exam Const Vital Signs: 11/29/21 17:33 11/29/21 17:35 11/29/21 18:27 Temperature 98.4 F 98.4 F Temperature Source Temporal Temporal Pulse Rate 69 69 Respiratory Rate 15 15 Respiratory Effort Normal Non-Labored Respiratory Pattern Normal Blood Pressure 180/94 H 180/94 H Blood Pressure Mean 122 122 Pulse Ox 95 95 Oxygen Delivery Method Room Air Room Air 11/29/21 19:42 Temperature Temperature Source Pulse Rate 55 L Respiratory Rate 18 Respiratory Effort Respiratory Pattern Blood Pressure 161/99 H Blood Pressure Mean 119 Pulse Ox 94 Oxygen Delivery Method Room Air MDM <SANDRA Tomas - Last Filed: 11/29/21 18:55> [facility] MDM Narrative Medical decision making narrative: Patient appears alert, patient is nontoxic, vital signs are stable. Patient presents to the emergency department with ongoing untreated rheumatoid arthritis, hypothyroidism, and on ability to care for self. Patient did receive multiple laboratory values including inflammatory values, TSH, patient CBC was unremarkable, patient's urinalysis was negative for any infection. Patient goal is to be admitted to the hospital for more [id number] care and to possibly be placed in a rehab facility/senior living. Lab Data Labs: Laboratory Results - last 24 hr 11/29/21 11/29/21 11/29/21 18:10 18:25 18:25 WBC 6.2 RBC 3.51 L Hgb 11.5 L Hct 37.0 MCV 105.4 H MCH 32.8 H MCHC 31.1 L RDW Std Deviation 55.8 H RDW Coeff of Carla 14.3 Plt Count 216 MPV 10.8 Immature Gran % (Auto) 0.500 Neut % (Auto) 79.0 H Lymph % (Auto) 11.4 L [place] % (Auto) 6.4 Eos % (Auto) 2.1 Baso % (Auto) 0.6 Absolute Neuts (auto) 4.9 Absolute Lymphs (auto) 0.71 L Nucleated RBC % 0 ESR 44 H Sodium 140 Potassium 4.0 Chloride 108 H Carbon Dioxide 28.0 Anion Gap 4 L BUN 13 Creatinine 0.81 Estim Creat Clear Calc 49.07 Est GFR (MDRD) Af Amer 91 Est GFR (MDRD) Non-Af 75 BUN/Creatinine Ratio 16.1 Glucose 99 Calcium 9.3 Total Bilirubin 0.50 AST 16 ALT 11 L Alkaline Phosphatase 86 C-React Prot Ext Range 21.50 H B-Natriuretic Peptide Total Protein 6.7 Albumin 3.3 Globulin 3.4 Albumin/Globulin Ratio 1.0 TSH 114.00 H Urine Color Yellow Urine Clarity Clear Urine pH 7.0 Ur Specific [place] 1.010 Urine Protein Negative Urine Glucose (UA) Normal Urine Ketones Negative Urine Occult Blood 10 H Urine Nitrite Negative Urine Bilirubin Negative Urine Urobilinogen 1 H Ur Leukocyte Esterase Negative Urine RBC 0-5 SEEN Urine WBC 0-5 SEEN Ur Squamous Epith Cells 0 SEEN Ur Transition Epith Cell 0-5 SEEN Urine Bacteria 0 SEEN Urine Mucus 0 SEEN 11/29/21 18:25 WBC RBC Hgb Hct MCV MCH MCHC RDW Std Deviation RDW Coeff of Carla Plt Count MPV Immature Gran % (Auto) Neut % (Auto) Lymph % (Auto) [place] % (Auto) Eos % (Auto) Baso % (Auto) Absolute Neuts (auto) Absolute Lymphs (auto) Nucleated RBC % ESR Sodium Potassium Chloride Carbon Dioxide Anion Gap BUN Creatinine Estim Creat Clear Calc Est GFR (MDRD) Af Amer Est GFR (MDRD) Non-Af BUN/Creatinine Ratio Glucose Calcium Total Bilirubin AST ALT Alkaline Phosphatase C-React Prot Ext Range B-Natriuretic Peptide 53.8 Total Protein Albumin Globulin Albumin/Globulin Ratio TSH Urine Color Urine Clarity Urine pH Ur Specific [place] Urine Protein Urine Glucose (UA) Urine Ketones Urine Occult Blood Urine Nitrite Urine Bilirubin Urine Urobilinogen Ur Leukocyte Esterase Urine RBC Urine WBC Ur Squamous Epith Cells Ur Transition Epith Cell Urine Bacteria Urine Mucus Radiography Diagnostic Testing: Clinical Impression(s) from Imaging Studies Chest X-Ray 11/29/21 18:19 IMPRESSION: Mild lingula and minimal bibasilar fibrosis. Mild biapical pleural thickening. Borderline cardiomegaly. Atherosclerotic vascular calcification of aortic arch and mildly tortuous descending aorta. Flattening of the superior medial humeral head which could be due to avascular necrosis. Underlying osteoarthritis right glenohumeral joint. Electronically Signed: Bobby Mendieta MD, JAGUAR at 18:42 EDT , <Dr. Jerry Norris, DO - Last Filed: 11/29/21 23:56> MDM MDM Narrative Medical decision making narrative: This patient was seen with a PA/CARPENTRY FOREMAN Individually assessed they patient including history and physical. I have reviewed everything on the chart that is available and agree with the documentation provided by the PA/CARPENTRY FOREMAN including discussion about the assessment, treatment plan, discussion, and return precautions. Patient presenting with generalized fatigue and failure to thrive. She has been off her medications for an extended period of time. There does appear to be some depression issues. Patient's blood work here today shows white blood cell count of 6.2, hemoglobin 1.5 with a last comparison a year ago slightly higher. She does not express to me that she has any black or bloody stools however. Renal function and electrolytes are normal. ESR is elevated at 44 and CRP elevated at 21.5. TSH is elevated at 114 which is consistent with the patient having thyroid disease. Urinalysis negative for infection. Ultimately the patient will need to be admitted because he is unable to care for herself anymore. Patient was discussed with the hospitalist for admission. Impression: 1. Generalized weakness 2. Failure to thrive 3. Hypothyroidism 4. Medical noncompliance Lab Data Attestation: I reviewed the patient's lab results. Labs: Laboratory Results - last 24 hr 11/29/21 11/29/21 11/29/21 18:10 18:25 18:25 WBC 6.2 RBC 3.51 L Hgb 11.5 L Hct 37.0 MCV 105.4 H MCH 32.8 H MCHC 31.1 L RDW Std Deviation 55.8 H RDW Coeff of Carla 14.3 Plt Count 216 MPV 10.8 Immature Gran % (Auto) 0.500 Neut % (Auto) 79.0 H Lymph % (Auto) 11.4 L [place] % (Auto) 6.4 Eos % (Auto) 2.1 Baso % (Auto) 0.6 Absolute Neuts (auto) 4.9 Absolute Lymphs (auto) 0.71 L Nucleated RBC % 0 ESR 44 H Sodium 140 Potassium 4.0 Chloride 108 H Carbon Dioxide 28.0 Anion Gap 4 L BUN 13 Creatinine 0.81 Estim Creat Clear Calc 49.07 Est GFR (MDRD) Af Amer 91 Est GFR (MDRD) Non-Af 75 BUN/Creatinine Ratio 16.1 Glucose 99 Calcium 9.3 Total Bilirubin 0.50 AST 16 ALT 11 L Alkaline Phosphatase 86 C-React Prot Ext Range 21.50 H B-Natriuretic Peptide Total Protein 6.7 Albumin 3.3 Globulin 3.4 Albumin/Globulin Ratio 1.0 TSH 114.00 H Urine Color Yellow Urine Clarity Clear Urine pH 7.0 Ur Specific [place] 1.010 Urine Protein Negative Urine Glucose (UA) Normal Urine Ketones Negative Urine Occult Blood 10 H Urine Nitrite Negative Urine Bilirubin Negative Urine Urobilinogen 1 H Ur Leukocyte Esterase Negative Urine RBC 0-5 SEEN Urine WBC 0-5 SEEN Ur Squamous Epith Cells 0 SEEN Ur Transition Epith Cell 0-5 SEEN Urine Bacteria 0 SEEN Urine Mucus 0 SEEN 11/29/21 18:25 WBC RBC Hgb Hct MCV MCH MCHC RDW Std Deviation RDW Coeff of Carla Plt Count MPV Immature Gran % (Auto) Neut % (Auto) Lymph % (Auto) [place] % (Auto) Eos % (Auto) Baso % (Auto) Absolute Neuts (auto) Absolute Lymphs (auto) Nucleated RBC % ESR Sodium Potassium Chloride Carbon Dioxide Anion Gap BUN Creatinine Estim Creat Clear Calc Est GFR (MDRD) Af Amer Est GFR (MDRD) Non-Af BUN/Creatinine Ratio Glucose Calcium Total Bilirubin AST ALT Alkaline Phosphatase C-React Prot Ext Range B-Natriuretic Peptide 53.8 Total Protein Albumin Globulin Albumin/Globulin Ratio TSH Urine Color Urine Clarity Urine pH Ur Specific [place] Urine Protein Urine Glucose (UA) Urine Ketones Urine Occult Blood Urine Nitrite Urine Bilirubin Urine Urobilinogen Ur Leukocyte Esterase Urine RBC Urine WBC Ur Squamous Epith Cells Ur Transition Epith Cell Urine Bacteria Urine Mucus Radiography Diagnostic Testing: Clinical Impression(s) from Imaging Studies Chest X-Ray 11/29/21 18:19 IMPRESSION: Mild lingula and minimal bibasilar fibrosis. Mild biapical pleural thickening. Borderline cardiomegaly. Atherosclerotic vascular calcification of aortic arch and mildly tortuous descending aorta. Flattening of the superior medial humeral head which could be due to avascular necrosis. Underlying osteoarthritis right glenohumeral joint. Electronically Signed: Bobby Mendieta MD, JAGUAR at 18:42 EDT , Discharge Plan Disposition Disposition: Acute Care Hospital [facility] Discharge Date/Time: 11/29/21 22:12
[2021-11-29 18:16] LABS: Bacteria 0 SEEN /hpf (None Seen); Color, Urine Yellow (Yellow); Glucose, Dipstick Normal (Normal); Ketone-Dipstick Negative (Negative); Leukocyte Esterase-Dipstick Negative /ul (Negative); Mucous, Urine 0 SEEN /hpf (<or=2+); Nitrite-Dipstick Negative (Negative); Occult Blood-Urine 10 /ul (Negative); Protein-Dipstick Negative (Negative); Squamous Epithelial Cells - UA 0 SEEN /hpf (5-10); Urine Bilirubin Dipstick Negative (Negative); Urine Clarity Clear (Clear); Urine Urobilinogen 1 mg/dl (Normal)
--- NOTE | 2021-11-29 18:19 | RAD_ITS ---
STUDY: X-RAY CHEST REASON FOR EXAM: Female, 66 years old. Swelling TECHNIQUE: Frontal view COMPARISON: None. FINDINGS: The lungs demonstrate mild lingular and minimal bibasilar fibrosis. Mild biapical pleural thickening. Borderline cardiomegaly. Normal mediastinum and law. Normal visualized pulmonary arteries. Atherosclerotic vascular calcification of aortic arch. Mildly tortuous descending aorta. Normal visualized thoracic spine. There is flattening of the superior medial right humeral head and moderate joint space narrowing of the glenohumeral joint. This flattening may be due to avascular necrosis or old trauma. There is no demonstrated abnormality of the visualized soft tissue structures of the upper abdomen. RAD/Chest 1 View (Portable) IMPRESSION: Mild lingula and minimal bibasilar fibrosis. Mild biapical pleural thickening. Borderline cardiomegaly. Atherosclerotic vascular calcification of aortic arch and mildly tortuous descending aorta. Flattening of the superior medial humeral head which could be due to avascular necrosis. Underlying osteoarthritis right glenohumeral joint. Electronically Signed: Bobby Mendieta MD, JAGUAR at 18:42 EDT ,
[2021-11-29 18:35] LABS: Absolute Lymphocyte Count 0.71 X10^3/uL (0.83-4.51); Absolute Neutrophil Count 4.9 X10^3/uL (2.0-7.7); Basophil# 0.04 X10^3/uL; Basophil% 0.6 % (0-1); Eosinophil# 0.13 X10^3/uL; Eosinophils% 2.1 % (0-5); Hemoglobin 11.5 g/dL (12.0-15.0); Lymphocyte # 0.71 X10^3/ul (0.83-4.51); Lymphocyte % 11.4 % (19-41); Mean Corp Hgb Conc 31.1 g/dL (32-36); Mean Corpuscular Hgb 32.8 pg (27.0-32.0); Mean Corpuscular Volume 105.4 fL (81-99); Mean Platelet Vol. 10.8 fl (6.2-12.0); Monocyte% 6.4 % (0-10); NRBC Flagged by Analyzer 0 % (0-5); Neutrophil # 4.93 X10^3/uL (2.7-7.7); Platelet Count 216 K/mm3 (150-450); RBC Distribution Width CV 14.3 % (11.6-14.6); RBC Distribution Width SD 55.8 fl (35.1-43.9); Red Blood Count 3.51 M/mm3 (4.2-5.4); White Blood Count 6.2 K/mm3 (4.4-11.0)
[2021-11-29 18:37] LABS: Red Blood Cells-Urine 0-5 SEEN /hpf (0-5); Transitional Epithelial - Ur 0-5 SEEN /hpf (0-5); White Blood Cells 0-5 SEEN /hpf (0-5)
[2021-11-29 19:08] LABS: AST(SGOT) 16 U/L (15-37); Alanine Aminotransfer ALT/SGPT 11 U/L (13-56); Albumin, Serum 3.3 g/dL (3.2-5.0); Alkaline Phosphatase 86 U/L (45-117); Anion Gap 4 (5-15); BUN 13 mg/dL (7-18); BUN/Creat Ratio 16.1 RATIO (10-20); Calcium,Total 9.3 mg/dL (8.5-10.1); Chloride 108 mmol/L (98-107); Creatinine, Serum 0.81 mg/dL (0.55-1.02); EST Glomerular Filtration Rate 75 mL/min (>60); Est Glom Filt Rate - Afr Amer 91 mL/min (>60); Estimated Creatinine Clearance 49.07 ml/min; Globulin 3.4 g/dL (2.2-4.2); Glucose 99 mg/dL (74-106); Protein, Total 6.7 g/dL (6.4-8.2); Sodium Level 140 mmol/L (136-145)
[2021-11-29 19:17] LABS: Erythrocyte Sedimentation Rate 44 mm/hr (0-30)
[2021-11-29 19:41] LABS: BNP,B-Type NATRIURETIC PEPTIDE 53.8 pg/mL (0-100)
[2021-11-29 19:42] VITALS: BP 161/99; PULSE 55; RESP 18; O2SAT 94
--- NOTE | 2021-11-29 21:04 | HP.PCM.HOS_ITS ---
HPI - General General Date of Admission: 11/29/21 HPI Narrative MAYCOL PRADO, is a 66 F with a significant history of morbid obesity; rheumatoid arthritis; and hypothyroidism who presents to emergency department with 6 months to 8 months history of progressive weakness. Patient has been too weak that she is unable to get in bed. She sleeps in a recliner. She is unable to do her activities of daily living. Her sister goes in a house to help her once in a week. Patient complains of generalized body pain. She has tramadol prescribed for over a year and that she is not taking because it does not work for her. She has been taking Tylenol and NSAID at home for pain. She said that she is swollen all over her body. She reports anorexia. She stopped seeing her special procedures nurse because reportedly her director heart would not provided enough help for her to qualify for some medications. Last time she saw her primary care Dr. Vianca Trujillo was about 1 year ago. It was via telemedicine. She report that 2 weeks ago she received a new prescription for her thyroid medicine. In the past 2 to 3 days she missed her thyroid medications [facility] Medical History (Updated 11/29/21 @ 21:[address] Ajith Villavicencio MD) Arthritis Home Medications tramadol 50 mg PO Q6H PRN 11/29/21 [History Last Taken Unknown] Allergy/AdvReac Type Severity Reaction Status Date / Time No Known Allergies Allergy Verified 11/29/21 17:35 Family History (Updated 11/29/21 @ 21:[address] Ajith Villavicencio MD) Other Hypertension Surgical History (Updated 11/29/21 @ 21:[address] Ajith Villavicencio MD) History of tonsillectomy Social History (Updated 11/29/21 @ 21:[address] Ajith Villavicencio MD) Smoking Status: Former smoker ROS ROS Narrative Pertinent positives and pertinent negatives as noted in HPI. All other systems were reviewed and are negative. Vital Signs Vital Signs Vital Signs: 11/29/21 17:33 11/29/21 17:35 11/29/21 18:27 Temperature 98.4 F 98.4 F Temperature Source Temporal Temporal Pulse Rate 69 69 Respiratory Rate 15 15 Respiratory Effort Normal Non-Labored Respiratory Pattern Normal Blood Pressure 180/94 H 180/94 H Blood Pressure Mean 122 122 Pulse Ox 95 95 Oxygen Delivery Method Room Air Room Air 11/29/21 19:42 Temperature Temperature Source Pulse Rate 55 L Respiratory Rate 18 Respiratory Effort Respiratory Pattern Blood Pressure 161/99 H Blood Pressure Mean 119 Pulse Ox 94 Oxygen Delivery Method Room Air Weight Weight: 136.078 kg Body Mass Index (BMI) 58.6 Physical Exam Narrative Physical exam: General: Morbidly obese Head: Normocephalic, atraumatic, no tenderness Eyes: Vision is grossly intact. EOMI ENT, no trauma, moist mucous membranes, no rhinorrhea Neck: Nontender, full range of motion, no spinal tenderness, deformities, step-off CVS: Regular rate and rhythm. S1-S2 present. No murmur, gallop or rub. Respiratory : clear to auscultation bilaterally, chest wall nontender, no wheezing Abdomen: Soft, nontender, nondistended, normal bowel sounds, no masses : Deferred Back: Nontender, no CVA tenderness, no midline spinal tenderness, deformities, step-offs Extremities: Nontender full range of motion, no trauma Skin: Mild erythema of bilateral legs. Normal color, no trauma, abrasions Neuro: Alert, oriented, cranial nerves II through XII grossly intact. Psychiatry: Normal mood. Normal affect. Not depressed. Not anxious. Results Lab / Micro Data Result Diagrams: 11/29/21 18:25 11/29/21 18:25 Labs: Laboratory Results - last 24 hr 11/29/21 18:10: Urine Color Yellow, Urine Clarity Clear, Urine pH 7.0, Ur Specific [place] 1.010, Urine Protein Negative, Urine Glucose (UA) Normal, Urine Ketones Negative, Urine Occult Blood 10 H, Urine Nitrite Negative, Urine Bilirubin Negative, Urine Urobilinogen 1 H, Ur Leukocyte Esterase Negative, Urine RBC 0-5 SEEN, Urine WBC 0-5 SEEN, Ur Squamous Epith Cells 0 SEEN, Ur Transition Epith Cell 0-5 SEEN, Urine Bacteria 0 SEEN, Urine Mucus 0 SEEN 11/29/21 18:25: WBC 6.2, RBC 3.51 L, Hgb 11.5 L, Hct 37.0, MCV 105.4 H, MCH 32.8 H, MCHC 31.1 L, RDW Std Deviation 55.8 H, RDW Coeff of Carla 14.3, Plt Count 216, MPV 10.8, Immature Gran % (Auto) 0.500, Neut % (Auto) 79.0 H, Lymph % (Auto) 11.4 L, [place] % (Auto) 6.4, Eos % (Auto) 2.1, Baso % (Auto) 0.6, Absolute Neuts (auto) 4.9, Absolute Lymphs (auto) 0.71 L, Nucleated RBC % 0, ESR 44 H 11/29/21 18:25: Sodium 140, Potassium 4.0, Chloride 108 H, Carbon Dioxide 28.0, Anion Gap 4 L, BUN 13, Creatinine 0.81, Estim Creat Clear Calc 49.07, Est GFR (MDRD) Af Amer 91, Est GFR (MDRD) Non-Af 75, BUN/Creatinine Ratio 16.1, Glucose 99, Calcium 9.3, Total Bilirubin 0.50, AST 16, ALT 11 L, Alkaline Phosphatase 86, C-React Prot Ext Range 21.50 H, Total Protein 6.7, Albumin 3.3, Globulin 3.4, Albumin/Globulin Ratio 1.0, TSH 114.00 H 11/29/21 18:25: B-Natriuretic Peptide 53.8 Radiology Impression Chest X-Ray 11/29/21 18:19 IMPRESSION: Mild lingula and minimal bibasilar fibrosis. Mild biapical pleural thickening. Borderline cardiomegaly. Atherosclerotic vascular calcification of aortic arch and mildly tortuous descending aorta. Flattening of the superior medial humeral head which could be due to avascular necrosis. Underlying osteoarthritis right glenohumeral joint. Electronically Signed: Bobby Mendieta MD, JAGUAR at 18:42 EDT Reading Location ID and State: [facility] / [place] Tel , Service support , Assessment & Plan Assessment/Plan (1) Weakness: (2) Rheumatoid arthritis: QUALIFIERS: Rheumatoid arthritis location: unspecified site Rheumatoid factor presence: unspecified presence Qualified Code(s): M06.9 - Rheumatoid arthritis, unspecified (3) Hypothyroidism: QUALIFIERS: Hypothyroidism type: unspecified Qualified Code(s): E03.9 - Hypothyroidism, unspecified (4) Venous stasis dermatitis: QUALIFIERS: Laterality: bilateral Qualified Code(s): I87.2 - Venous insufficiency (chronic) (peripheral) PLAN: Generalized weakness PT and OT to work with patient. Case management consult for disposition Hypothyroidism TSH is 114. Get a free T4. Resume home thyroid medications Venous stasis dermatitis Elevate bilateral lower legs Rheumatoid arthritis Labs reviewed showed a CRP of 21.50 Chronic Tylenol and ibuprofen as needed for pain. Plan to follow-up with rheumatology after discharge. Chest x-ray was visualized and independent interpreted. No acute cardiopulmonary process noted. Radiologist interpretation there is flattening of the superior medial humeral head. Consider orthopedic referral upon discharge Morbid Obesity BMI: 58.6 kg/m?. Complicates care. Lifestyle modification recommended. DVT prophylaxis Subcutaneous Lovenox ordered. Charges/Coding Visit Charges OBSV E&M: [id number] Initial observation care L3
[2021-11-29 21:12] VITALS: BP 169/87; PULSE 60; RESP 15; TEMP 37.2; O2SAT 93
[2021-11-29 22:19] VITALS: BP 143/83; PULSE 58; RESP 16; TEMP 36.8; O2SAT 97
[2021-11-29 22:32] VITALS: BMI 64.0
[2021-11-29] MEDS: Ibuprofen 400 MG Tablet PO (23:24)
[2021-11-29] MEDS: Enoxaparin 40 MG/0.4 ML Syringe SC (23:25)
[2021-11-30] MEDS: Acetaminophen 325 MG Tablet 650 MG PO (01:34)
[2021-11-30 03:40] VITALS: BP 145/72; PULSE 58; RESP 18; TEMP 36.7; O2SAT 93
[2021-11-30] MEDS: Pantoprazole Sodium 40 MG Tablet PO (05:18)
[2021-11-30] MEDS: Levothyroxine 150 MCG Tablet PO (05:18)
[2021-11-30] MEDS: Ibuprofen 600 MG Tablet PO ×3 (05:18→23:21)
[2021-11-30 06:21] LABS: Absolute Neutrophil Count 3.1 X10^3/uL (2.0-7.7); Basophil# 0.03 X10^3/uL; Basophil% 0.7 % (0-1); Eosinophil# 0.21 X10^3/uL; Eosinophils% 4.6 % (0-5); Hemoglobin 10.2 g/dL (12.0-15.0); Lymphocyte % 17.4 % (19-41); Mean Corp Hgb Conc 30.9 g/dL (32-36); Mean Corpuscular Hgb 32.7 pg (27.0-32.0); Mean Corpuscular Volume 105.8 fL (81-99); Mean Platelet Vol. 11.1 fl (6.2-12.0); Monocyte# 0.45 X10^3/uL; Monocyte% 9.8 % (0-10); NRBC Flagged by Analyzer 0 % (0-5); Neutrophil % 67.1 % (47-70); POSITIVE MORPHOLOGY YES; Platelet Count 191 K/mm3 (150-450); RBC Distribution Width CV 14.5 % (11.6-14.6); RBC Distribution Width SD 56.4 fl (35.1-43.9); Red Blood Count 3.12 M/mm3 (4.2-5.4); White Blood Count 4.6 K/mm3 (4.4-11.0)
[2021-11-30 06:22] LABS: Differential Indicated SCAN CRITERIA MET
[2021-11-30 06:50] LABS: Anion Gap 6 (5-15); BUN 11 mg/dL (7-18); BUN/Creat Ratio 15.3 RATIO (10-20); Calcium,Total 8.8 mg/dL (8.5-10.1); Chloride 105 mmol/L (98-107); Creatinine, Serum 0.72 mg/dL (0.55-1.02); EST Glomerular Filtration Rate 86 mL/min (>60); Est Glom Filt Rate - Afr Amer 104 mL/min (>60); Estimated Creatinine Clearance 39.75 ml/min; Glucose 81 mg/dL (74-106); Potassium 3.7 mmol/L (3.5-5.1); Sodium Level 140 mmol/L (136-145)
[2021-11-30 06:52] LABS: Anisocytosis 1+; Macrocytosis 1+
[2021-11-30 06:53] LABS: Atypical Lymphocyte 1+ %
--- NOTE | 2021-11-30 07:14 | PCM.PN.HOSP ---
Subjective Subjective Follow-up on debility: Patient was seen and examined she complains of bilateral tingling numbness in both hands. This has been ongoing for a while. She denied any history of carpal tunnel. No other acute events overnight. Objective Data Objective Data Vital Signs: Vital Signs Temp Pulse Resp BP Pulse Ox 98.0 F 58 L 18 145/72 H 93 11/30/21 03:40 11/30/21 03:40 11/30/21 03:40 11/30/21 03:40 11/30/21 03:40 Oxygen Delivery Method Room Air Weight: 148.6 kg Body Mass Index (BMI) 64.0 Intake & Output: Intake and Output for Last 24 Hours 11/28/21 11/29/21 11/30/21 23:59 23:59 23:59 Intake Total 200 / 200 Output Total 200 / 200 Balance 0 / 0 Lab / Micro Data Result Diagrams: 11/30/21 05:17 11/30/21 05:17 Labs: Laboratory Results - last 24 hr 11/29/21 18:10: Urine Color Yellow, Urine Clarity Clear, Urine pH 7.0, Ur Specific [place] 1.010, Urine Protein Negative, Urine Glucose (UA) Normal, Urine Ketones Negative, Urine Occult Blood 10 H, Urine Nitrite Negative, Urine Bilirubin Negative, Urine Urobilinogen 1 H, Ur Leukocyte Esterase Negative, Urine RBC 0-5 SEEN, Urine WBC 0-5 SEEN, Ur Squamous Epith Cells 0 SEEN, Ur Transition Epith Cell 0-5 SEEN, Urine Bacteria 0 SEEN, Urine Mucus 0 SEEN 11/29/21 18:25: WBC 6.2, RBC 3.51 L, Hgb 11.5 L, Hct 37.0, MCV 105.4 H, MCH 32.8 H, MCHC 31.1 L, RDW Std Deviation 55.8 H, RDW Coeff of Carla 14.3, Plt Count 216, MPV 10.8, Immature Gran % (Auto) 0.500, Neut % (Auto) 79.0 H, Lymph % (Auto) 11.4 L, [place] % (Auto) 6.4, Eos % (Auto) 2.1, Baso % (Auto) 0.6, Absolute Neuts (auto) 4.9, Absolute Lymphs (auto) 0.71 L, Nucleated RBC % 0, ESR 44 H 11/29/21 18:25: Sodium 140, Potassium 4.0, Chloride 108 H, Carbon Dioxide 28.0, Anion Gap 4 L, BUN 13, Creatinine 0.81, Estim Creat Clear Calc 49.07, Est GFR (MDRD) Af Amer 91, Est GFR (MDRD) Non-Af 75, BUN/Creatinine Ratio 16.1, Glucose 99, Calcium 9.3, Total Bilirubin 0.50, AST 16, ALT 11 L, Alkaline Phosphatase 86, C-React Prot Ext Range 21.50 H, Total Protein 6.7, Albumin 3.3, Globulin 3.4, Albumin/Globulin Ratio 1.0, TSH 114.00 H 11/29/21 18:25: B-Natriuretic Peptide 53.8 11/29/21 21:15: Free T4 0.40 L 11/30/21 05:17: WBC 4.6, RBC 3.12 L, Hgb 10.2 L, Hct 33.0 L, MCV 105.8 H, MCH 32.7 H, MCHC 30.9 L, RDW Std Deviation 56.4 H, RDW Coeff of Carla 14.5, Plt Count 191, MPV 11.1, Immature Gran % (Auto) 0.400, Neut % (Auto) 67.1, Lymph % (Auto) 17.4 L, [place] % (Auto) 9.8, Eos % (Auto) 4.6, Baso % (Auto) 0.7, Absolute Neuts (auto) 3.1, Absolute Lymphs (auto) 0.80 L, Nucleated RBC % 0, Atypical Lymphocytes 1+, Anisocytosis 1+, Macrocytosis 1+ 11/30/21 05:17: Sodium 140, Potassium 3.7, Chloride 105, Carbon Dioxide 29.0, Anion Gap 6, BUN 11, Creatinine 0.72, Estim Creat Clear Calc 39.75, Est GFR (MDRD) Af Amer 104, Est GFR (MDRD) Non-Af 86, BUN/Creatinine Ratio 15.3, Glucose 81, Calcium 8.8 Radiography Diagnostic Testing: Radiology Impression Chest X-Ray 11/29/21 18:19 IMPRESSION: Mild lingula and minimal bibasilar fibrosis. Mild biapical pleural thickening. Borderline cardiomegaly. Atherosclerotic vascular calcification of aortic arch and mildly tortuous descending aorta. Flattening of the superior medial humeral head which could be due to avascular necrosis. Underlying osteoarthritis right glenohumeral joint. Electronically Signed: Bobby Mendieta MD, JAGUAR at 18:42 EDT , Physical Exam Narrative Physical exam: General: Alert, Oriented x3, Cooperative, super morbidly obese HEENT: Atraumatic Oral: Moist Mucosa Neck: Supple Lungs: Diminished to auscultation Cardiovascular: HS I+II, regular, no murmurs Abdomen: Bowel Sounds Present, Soft, Non Tender Extremities: Bilateral lower extremity pedal edema +3, chronic bilateral lymphedema, Tinel sign positive in both wrists Skin: No rashes, No breakdown Neurological: Grossly intact Psych/Mental Status: Appropriate Assessment & Plan Assessment/Plan (1) Weakness: (2) Rheumatoid arthritis: QUALIFIERS: Rheumatoid arthritis location: unspecified site Rheumatoid factor presence: unspecified presence Qualified Code(s): M06.9 - Rheumatoid arthritis, unspecified (3) Hypothyroidism: QUALIFIERS: Hypothyroidism type: unspecified Qualified Code(s): E03.9 - Hypothyroidism, unspecified (4) Venous stasis dermatitis: QUALIFIERS: Laterality: bilateral Qualified Code(s): I87.2 - Venous insufficiency (chronic) (peripheral) PLAN: 1. Acute on chronic debility, PT and OT to evaluate and treat Patient will likely need discharge to SNF 2. Probable bilateral carpal tunnel, positive Tinel sign We will give Lasix 40 mg IV, trial of gabapentin 100 mg p.o. 3 times daily 3. Hypothyroidism, continue on Synthroid 4. Chronic bilateral pedal edema/lymphedema/venous stasis dermatitis Admitting BNP Was 53.8 Continue to elevate bilateral lower extremities 5. Rheumatoid arthritis, needs to follow-up with rheumatology in the outpatient 6. Super morbid obesity, BMI 64, complicates care 7. DVT prophylaxis - Lovenox SC Charges/Coding Visit Charges OBSV E&M: 50893 Subsequent observation care L3
[2021-11-30 09:56] VITALS: BP 137/76; PULSE 60; RESP 18; TEMP 36.4; O2SAT 93
[2021-11-30] MEDS: Loratadine 10 MG Tablet PO (10:11)
[2021-11-30] MEDS: Furosemide 40 MG/4 ML Vial IV ×2 (10:11→17:21)
[2021-11-30] MEDS: Enoxaparin 40 MG/0.4 ML Syringe SC ×2 (10:11→20:05)
[2021-11-30] MEDS: Gabapentin 100 MG Capsule PO ×2 (10:11→17:20)
[2021-11-30 15:04] VITALS: BP 141/73; PULSE 58; RESP 20; TEMP 36.9; O2SAT 93
[2021-11-30] MEDS: 0.9% Saline Lock 10 ML Syringe IV (17:21)
[2021-11-30 17:24] VITALS: BP 152/78; PULSE 58; RESP 16; O2SAT 97
[2021-11-30 20:02] VITALS: BP 133/73; PULSE 61; RESP 16; TEMP 37.2; O2SAT 91
[2021-12-01] MEDS: Acetaminophen 325 MG Tablet 650 MG PO ×3 (01:35→16:43)
[2021-12-01 01:39] VITALS: BP 123/67; PULSE 64; RESP 14; TEMP 37.3; O2SAT 93
[2021-12-01] MEDS: Levothyroxine 150 MCG Tablet PO (04:27)
[2021-12-01] MEDS: Enoxaparin 40 MG/0.4 ML Syringe SC ×2 (07:38→21:18)
[2021-12-01] MEDS: CETIRIZINE HCL 10 MG TABLET PO (07:39)
[2021-12-01] MEDS: Gabapentin 100 MG Capsule PO ×2 (07:46→12:20)
[2021-12-01] MEDS: Pantoprazole Sodium 40 MG Tablet PO (07:46)
[2021-12-01 07:52] VITALS: BP 161/82; PULSE 57; RESP 16; TEMP 36.5; O2SAT 94
[2021-12-01 07:57] VITALS: O2SAT 91
[2021-12-01 15:00] VITALS: BP 149/84; PULSE 57; RESP 16; TEMP 36.2; O2SAT 96
--- NOTE | 2021-12-01 15:50 | PN.HOSP_ITS ---
Subjective Subjective Patient was seen and examined today, she states that she has been treated for rheumatoid arthritis in the past but became frustrated and stopped all her medications. Daughter was in the room at the time my examination and I discussed the patient's medical care with her also. Patient states she has severe upper extremity weakness and decreased booking manager strength, she states that she was having a hard time moving her legs but she was given a dose of Lasix since she was admitted here and its helped greatly. She also states that she feels the Neurontin that she is taking is helping her somewhat also. I had a long discussion with her about treatment of rheumatoid arthritis, I urged her to get another opinion from a second director field services, she does not want to go back to the director field services she was seeing in town here. I noticed on admission the patient's TSH was very elevated along with low thyroid hormone levels, patient may not been taking her medications at home however-she admits she stopped several of her medications. Objective Data Objective Data Vital Signs: Vital Signs Temp Pulse Resp BP Pulse Ox 97.7 F L 57 L 16 161/82 H 91 12/01/21 07:52 12/01/21 07:52 12/01/21 07:52 12/01/21 07:52 12/01/21 07:57 Oxygen Delivery Method Room Air Weight: 148.6 kg Body Mass Index (BMI) 64.0 Intake & Output: Intake and Output for Last 24 Hours 11/29/21 11/30/21 12/01/21 23:59 23:59 23:59 Intake Total 1050 / 1170 240 / 240 Output Total 3200 / 5200 2400 / 2400 Balance -2150 / -4030 -2160 / -2160 Lab / Micro Data Result Diagrams: 11/30/21 05:17 11/30/21 05:17 Physical Exam Const alert, oriented x3 and no apparent distress Constitutional Narrative: Patient appears older than her stated age, she is morbidly obese General Appearance: cooperative, well kempt and well developed Orientation / Consciousness: awake, oriented to person, oriented to place and oriented to time Nutritional Appearance: morbidly obese HEENT normocephalic and moist oral mucous membranes Eyes PERRL, EOMs intact bilaterally and conjunctivae normal Neck nuchal rigidity, supple, no JVD, thyroid normal and no carotid bruits General: trachea midline Resp normal respiratory effort and clear to auscultation bilaterally Auscultation: Negative for rales, rhonchi or wheezes Cardio regular rate, regular rhythm, no murmurs, no rub and no gallops GI normal to inspection, nondistended, normoactive bowel sounds, soft to palpation, non-tender and non-distended GI Narrative: Patient is morbidly obese Extremity Extremity Narrative: Patient has chronic lymphedematous changes noted over both lower legs, patient also has some edema of the dorsum of her feet. Skin no rashes or lesions noted and no wounds General Skin Exam: no breakdown Neuro oriented x3, CN's II-XII intact bilaterally, no focal motor deficits and no sensory deficits noted Sensorium / Orientation: awake and alert Speech: speech normal Psych affect normal Assessment & Plan Assessment/Plan (1) Weakness: PLAN: 1. Generalized weakness-probably multifactorial in nature, deconditioning, morbid obesity, severe hypothyroidism, ? RA versus OA-I decided to place the patient on IV corticosteroids for the short period of time that she will be in the hospital, I will continue prednisone for several days after she is transferred to an extended care facility for rehab services. I urged her to follow-up with a director field services in the [place] area concerning ongoing care. I think she may benefit from a short course of corticosteroids, she will continue on a PPI while she is taking the corticosteroids and ibuprofen as needed. #2 severe hypothyroidism-secondary to noncompliance with medical treatment, patient's Synthroid will be continued #3 morbid obesity-complicates recovery, care, and prognosis. #4 severe arthritis of the right knee-it appears the patient's last knee x-rays done on her right knee at this hospital was done in 2016-this showed severe arthritic destruction of the right knee, I suspect that she will need to consider a right knee replacement I discussed this with her, she will need to follow-up as an outpatient concerning this. #5 RA versus OA-I do not have any of the patient's previous lab work done to verify she has rheumatoid arthritis, again I urged her to get an opinion from a second director field services concerning this diagnosis to facilitate treatment. Charges/Coding Visit Charges OBSV E&M: 66532 Subsequent observation care L3
[2021-12-01] MEDS: 0.9% Saline Lock 10 ML Syringe IV ×2 (16:44→21:19)
[2021-12-01] MEDS: Gabapentin 100 MG Capsule 200 MG PO (16:44)
[2021-12-01] MEDS: dexAMETHasone 4 MG/ML Vial IV ×2 (16:44→21:19)
[2021-12-01] MEDS: Ibuprofen 600 MG Tablet PO (19:57)
[2021-12-01 19:59] VITALS: BP 148/92; PULSE 57; RESP 16; TEMP 37.1; O2SAT 94
[2021-12-01] MEDS: Nystatin Powder 15gm Bottle 1 APPLIC TOPICAL (21:17)
[2021-12-01] MEDS: Menthol/Lanolin/Calamine/Znox 113 GM Tube 1 APPLIC TOPICAL (21:17)
[2021-12-02 02:45] VITALS: BP 145/75; PULSE 62; RESP 16; TEMP 36.8; O2SAT 94
[2021-12-02] MEDS: dexAMETHasone 4 MG/ML Vial IV ×3 (06:41→21:50)
[2021-12-02] MEDS: Nystatin Powder 15gm Bottle 1 APPLIC TOPICAL ×3 (06:41→21:51)
[2021-12-02] MEDS: Levothyroxine 150 MCG Tablet PO (06:41)
[2021-12-02] MEDS: Menthol/Lanolin/Calamine/Znox 113 GM Tube 1 APPLIC TOPICAL ×3 (06:42→21:50)
[2021-12-02] MEDS: 0.9% Saline Lock 10 ML Syringe IV ×2 (06:47→22:03)
[2021-12-02 07:52] VITALS: O2SAT 91
[2021-12-02 08:48] VITALS: BP 150/78; PULSE 64; RESP 20; TEMP 36.7; O2SAT 94
[2021-12-02] MEDS: CETIRIZINE HCL 10 MG TABLET PO (08:51)
[2021-12-02] MEDS: Pantoprazole Sodium 40 MG Tablet PO (08:52)
[2021-12-02] MEDS: Enoxaparin 40 MG/0.4 ML Syringe SC ×2 (08:53→21:50)
[2021-12-02] MEDS: Gabapentin 100 MG Capsule 200 MG PO ×3 (08:57→18:57)
--- NOTE | 2021-12-02 10:00 | MRI_ITS ---
HISTORY: upper extremity weakness, tingling/numbness in hands. TECHNIQUE: Multiplanar and multisequence MR images of the cervical spine were performed. IV Contrast Dosage and Agent: None. 265 images. COMPARISON: None. FINDINGS: VERTEBRAE: Vertebral body heights maintained. Mild degenerative endplate changes of C4-5, C5-6, and C6-7. No Significant bone marrow signal abnormality. VERTEBRAL ALIGNMENT: Straightening of the cervical lordosis. Minimal 2 mm anterolisthesis of C4-5 and C7-T1. SPINAL CORD: Cervical cord signal and morphology within normal limits. SOFT TISSUES: No prevertebral fluid collection. INTERVERTEBRAL DISCS: C2-3: No significant posterior disc protrusion. No central canal stenosis or foraminal narrowing. C3-4: Minimal disc bulge. No significant central canal stenosis or foraminal narrowing. C4-5: Mild disc bulge with uncovertebral and facet arthropathy. No significant central canal stenosis. Mild bilateral foraminal narrowing. C5-6: Mild right paracentral disc extrusion with probable impingement of the right traversing nerve root, minimal narrowing of the thecal sac, and right greater than left foraminal narrowing. C6-7: Mild posterior disc bulge osteophyte complex eccentric to the left with uncovertebral and facet arthropathy resulting in very mild central canal stenosis with left greater than right foraminal narrowing . C7-T1: Mild pseudodisc appearance secondary to the listhesis. Minimal narrowing of the thecal sac. MRI/Spine Cervical (Routine) IMPRESSION: Multilevel degenerative disc disease as above. Electronically Signed: Marcela Siegel MD at 13:41 EDT ,
--- NOTE | 2021-12-02 10:58 | CASEMGMT ---
HORTENSIA ARELLANO in to discuss SRINIVASAN form with patient. HORTENSIA ARELLANO explained SRINIVASAN form, patient voiced understanding. Pt signed form and filed in chart. Pt provided with a copy of signed SRINIVASAN form. Pt inquires about going to TCU. She states she would like this. She is aware that HORTENSIA ARELLANO will notify SW. Pt niece came in to room as well during signing of the form. Patient had no further questions or concerns at this time.
--- NOTE | 2021-12-02 11:15 | CASEMGMT ---
Social Work TOVA met with pt and niece Lisa and introduced self and role of SW. Pt lives at home alone in a mobile home with 5 steps to enter. Pt has been home bound as she cannot do the steps. Pt has been having a very hard time walking and per her report she can barley get to the bedside commode that is only a few feet away. Pt states she is sponge bathing. Her sister comes over one time a week and brings groceries and helps with laundry. Pt stating she knows she cannot return home at this time and needs rehabilitation with plans to return home to a more independent lifestyle. Pt niece states family can have a ramp installed if needed. SW provided list of SNF providers including quality and resource use data and consistent with the patient's preferred geographic region, medical needs and insurance network. Pt preferred provider is TCU. SW explained Medicare SNF benefit and copay to start on day 21. Pt and niece understanding. VM left with Sherry at TCU with referral. TOVA will await determination of acceptance. Plan: TCU, pending acceptance BRII Macias
[2021-12-02 14:50] VITALS: BP 147/85; PULSE 62; RESP 18; TEMP 36.9; O2SAT 93
[2021-12-02] MEDS: Ibuprofen 600 MG Tablet PO (14:59)
--- NOTE | 2021-12-02 15:29 | CASEMGMT ---
Social Work Return call from TCU and they are unable to accept pt. SW met with pt and informed and pt second choice is [facility]. VM left for [facility] at [facility] and referral faxed. SW will await return call from [facility]. SW did update [facility] that pt is medically ready for discharge. Plan: [facility], pending acceptance. BRII Macias
--- NOTE | 2021-12-02 19:36 | PN.HOSP_ITS ---
Subjective Subjective Patient was seen and examined today, she states she was able to sleep last night she has had overall less joint pain. Patient had a cervical spine MRI today which showed diffuse degenerative disc disease of the cervical spine-there was a disc protrusion at C6 which I feel may be responsible for why the patient is tingling and numbness in her right hand. Patient was not excepted by TCU today due to the lack of bed space, she will try to be placed at [facility] tomorrow. In the meantime I will continue IV corticosteroid administration for now. Objective Data Objective Data Vital Signs: Vital Signs Temp Pulse Resp BP Pulse Ox 98.4 F 62 18 147/85 H 93 12/02/21 14:50 12/02/21 14:50 12/02/21 14:50 12/02/21 14:50 12/02/21 14:50 Oxygen Delivery Method Room Air Weight: 148.6 kg Body Mass Index (BMI) 64.0 Intake & Output: Intake and Output for Last 24 Hours 11/30/21 12/01/21 12/02/21 23:59 23:59 23:59 Intake Total 1050 / 1170 790 / 790 360 / 360 Output Total 3200 / 5200 3900 / 4700 1800 / 1800 Balance -2150 / -4030 -3110 / -3910 -1440 / -1440 Lab / Micro Data Result Diagrams: 11/30/21 05:17 11/30/21 05:17 Radiography Diagnostic Testing: Radiology Impression Cervical Spine MRI 12/02/21 10:00 IMPRESSION: Multilevel degenerative disc disease as above. Electronically Signed: Marcela Siegel MD at 13:41 EDT , Physical Exam Const alert, oriented x3, no apparent distress and healthy appearing General Appearance: cooperative, well kempt and well developed Orientation / Consciousness: awake, oriented to person, oriented to place and oriented to time Nutritional Appearance: morbidly obese HEENT normocephalic and moist oral mucous membranes Eyes PERRL, EOMs intact bilaterally and conjunctivae normal Neck nuchal rigidity, supple, no JVD, thyroid normal and no carotid bruits General: trachea midline Resp normal respiratory effort and clear to auscultation bilaterally Auscultation: Negative for rales, rhonchi or wheezes Cardio regular rate, regular rhythm, S1 normal heart sound, S2 normal heart sound, no murmurs, no rub and no gallops GI normal to inspection, nondistended, normoactive bowel sounds, soft to palpation, non-tender and non-distended Extremity no clubbing, cyanosis or edema Skin no rashes or lesions noted General Skin Exam: no breakdown Neuro oriented x3, CN's II-XII intact bilaterally, no focal motor deficits and no sensory deficits noted Sensorium / Orientation: awake and alert Speech: speech normal Psych affect normal Assessment & Plan Assessment/Plan (1) Weakness: PLAN: 1. Generalized weakness-probably multifactorial in nature, deconditioning, morbid obesity, severe hypothyroidism, ? RA versus OA-I have elected this time to keep her on IV Decadron for now, hopefully she will be acce pted in a nursing facility tomorrow. #2 severe hypothyroidism-secondary to noncompliance with medical treatment, patient's Synthroid will be continued #3 morbid obesity-complicates recovery, care, and prognosis. #4 severe arthritis of the right knee #5 RA versus OA-I do not have any of the patient's previous lab work done to verify she has rheumatoid arthritis, again I urged her to get an opinion from a second brain wave technician concerning this diagnosis to facilitate treatment. #6 degenerative joint disease of the cervical spine-at this point, I do not feel that the MRI of her cervical spine indicates she needs emergent surgery, she will need follow-up with a doctor as an outpatient if she continues to have problems with numbness in her right hand and upper extremity radicular pain. Charges/Coding Visit Charges OBSV E&M: 17049 Subsequent observation care L3
[2021-12-03] MEDS: Ibuprofen 600 MG Tablet PO (01:27)
[2021-12-03 03:00] VITALS: BP 144/92; PULSE 58; RESP 16; TEMP 36.4; O2SAT 94
[2021-12-03] MEDS: dexAMETHasone 4 MG/ML Vial IV (06:34)
[2021-12-03] MEDS: Levothyroxine 150 MCG Tablet PO (06:34)
[2021-12-03] MEDS: Menthol/Lanolin/Calamine/Znox 113 GM Tube 1 APPLIC TOPICAL (06:34)
[2021-12-03] MEDS: Nystatin Powder 15gm Bottle 1 APPLIC TOPICAL (06:35)
[2021-12-03] MEDS: 0.9% Saline Lock 10 ML Syringe IV (06:35)
[2021-12-03 08:00] VITALS: PULSE 61; RESP 18; O2SAT 96
[2021-12-03 08:32] VITALS: O2SAT 94
[2021-12-03] MEDS: Gabapentin 100 MG Capsule 200 MG PO ×2 (09:33→12:25)
[2021-12-03] MEDS: CETIRIZINE HCL 10 MG TABLET PO (09:33)
[2021-12-03] MEDS: Pantoprazole Sodium 40 MG Tablet PO (09:33)
[2021-12-03] MEDS: Enoxaparin 40 MG/0.4 ML Syringe SC (09:33)
--- NOTE | 2021-12-03 09:58 | CASEMGMT ---
Addendum entered by Felicity Evans 12/03/21 11:02: Social Work Pt ready for discharge. Orders faxed to TCU and Sherry notified of pt d/c today. Nurse updated on discharge plan. BRII Macias Addendum entered by Felicity Evans 12/03/21 10:04: TOVA met with pt christy Orozco and updated on discharge plan. Lisa agreeable. BRII Macias Original Note: Social Work SW received call from TCU and due to change of circumstances, pt can now be accepted to TCU with admission today. TOVA met with pt and informed of this. At this time pt wishing to cancel referral to [facility] and discharge to [facility]CU. Physician updated and pt is ready for discharge today. SW left VM with Fang at [facility] canceling referral. Nursing updated on d/c plan and informed of need for Covid test. Plan: [facility]CU today BRII Macias
[2021-12-03 10:00] VITALS: BP 153/90; PULSE 61; RESP 18; TEMP 37.1; O2SAT 96
--- NOTE | 2021-12-03 10:30 | TREXTCAR_ITS ---
Diet 11/29/21 22:17 Diet: Regular - General Food consistency:: Regular Liquid Consistency:: Regular/Thin Routine Orders/Code Status Code Status: Full Code Therapies Weight Bearing: Full weight bearing Physical Therapy: Eval and Treat Occupational Therapy: Eval and Treat Problem/Diagnosis (1) Weakness: Status: Acute Comment: Possibly secondary to extreme hypothyroidism and deconditioning with morbid obesity (2) Hypothyroidism: Status: Chronic Comment: Patient had stopped her thyroid medication for a period of time, she is back on Synthroid (3) Rheumatoid arthritis: Status: Chronic Comment: Patient will need follow-up in [facility] with rheumatology (4) Morbid obesity due to excess calories: Status: Chronic (5) Degenerative joint disease of cervical spine: Status: Chronic Allergies/Procedures Done in Hospital Allergies No Known Allergies Allergy (Verified 11/29/21 17:35) Procedures: None Type of Care/Length of Stay Estimated LOS: Convalescent Care Less Than 30 days Type of Care Needed: Skilled Rehab Potential: Good Prognosis: Good Additional Orders/Day of Discharge H&P will serve as current which was dated: 11/29/21 Day of Discharge: 12/03/21 Dietary and Speech Recommendations Dietitian Recommendations/Changes: Continue Regular diet. Will monitor oral intakes and implement additional interventions as needed. Discharge Plan Admission Admit Date/Time: 11/29/21 21:07 Primary Reason for Your Visit: Generalized weakness, hypothyroidism, arthritis Attending Provider: Bobby Bajwa Primary Care Provider: Vianca Trujillo Consulting Providers: Ajith Villavicencio ; Karo Cazares Discharge Orders/Prescriptions Prescriptions: New acetaminophen [Tylenol] 325 mg Tablet 650 mg PO Q6H PRN PRN (Reason: Pain Score 1-10/Temp > 100.7 F) Qty: 0 RF: 0 levothyroxine 150 mcg Tablet 150 mcg PO DAILY@0600 Qty: 0 RF: 0 gabapentin 100 mg Capsule 200 mg PO TIDCM Qty: 0 RF: 0 ibuprofen 600 mg Tablet 600 mg PO Q6H PRN PRN (Reason: Pain 1-10 Or Fever) Qty: 0 RF: 0 menthol-zinc oxide [Calmoseptine] 0.44-20.6 % Ointment 1 applic topical TID Qty: 0 RF: 0 sennosides-docusate sodium [Stool Softener-Stimulant Laxat] 8.6-50 mg Tablet 2 tab PO BID PRN PRN (Reason: Constipation) Qty: 0 RF: 0 pantoprazole 40 mg Tablet,Delayed Release (Dr/Ec) 40 mg PO DAILY Qty: 0 RF: 0 nystatin [Nyamyc] 100,000 unit/gram Powder 1 applic topical TID Qty: 0 RF: 0 prednisone 20 mg tablet 20 mg PO BID Qty: 1 RF: 0 Discontinued acetaminophen [Tylenol Ex Str Arthritis Pain] 500 mg Tablet 1,000 mg PO DAILY RF: 0 ibuprofen [Advil] 200 mg Tablet 800 mg PO DAILY RF: 0 Referrals / Follow Up: Vianca Trujillo DO [Primary Care Provider] - Disposition Disposition (needs filled in before D/C Order can be placed): [facility]
--- NOTE | 2021-12-03 11:58 | NURSING ---
report called to [facility] @ approx 11:15 room not ready, will call again at 12:[id number]
--- NOTE | 2021-12-03 21:10 | PCM.DC.SUM ---
Providers Date of Admission: 11/29/21 Date of Discharge: 12/03/21 Primary Care Physician: Dr. Vianca Trujillo DO Reason For Visit: GENERALIZED WEAKNESS Diagnosis Discharge Diagnosis (1) Weakness: Status: Acute Code(s): R53.1 - Weakness Plan: 1. Generalized weakness-multifactorial in nature including morbid obesity, severe hypothyroidism, and deconditioning #2 severe hypothyroidism secondary to noncompliance with medical regimen #3 morbid obesity #4 severe arthritis of the right knee #5 generalized arthritis-etiology unclear, rheumatoid versus osteoarthritis #6 degenerative joint disease of the cervical spine Medications at Discharge Home Medications acetaminophen [Tylenol] 650 mg PO Q6H PRN PRN #0 tab 12/03/21 gabapentin 200 mg PO TIDCM 12/03/21 ibuprofen 600 mg PO Q6H PRN PRN #0 tab 12/03/21 levothyroxine 150 mcg PO DAILY@0600 12/03/21 menthol-zinc oxide [Calmoseptine] 1 applic TOPICAL TID 12/03/21 nystatin [Nyamyc] 1 applic TOPICAL TID 12/03/21 pantoprazole 40 mg PO DAILY 12/03/21 prednisone 20 mg PO BID 12/03/21 sennosides-docusate sodium [Stool Softener-Stimulant Laxat] 2 tab PO BID PRN PRN #0 tab 12/03/21 Hospital Course Operations None Procedures None Summary of Care Provided Minutes Spent on Discharge: 30 Hospital Course: 66-year-old white female was seen in the emergency room at [facility] with complaints of severe progressive weakness that had been going on for several months. She was unable to do ADLs at home. Patient been noncompliant with her medications and had stopped all her medications months ago. She does have a history of rheumatoid arthritis-this could not exactly be verified due to lack of lab work in her medical record-in the emergency room, patient's vital signs were stable and she did not appear to be in any acute distress. Patient was placed in observation status on MedSurg 3, thyroid function tests revealed her to have severe hypothyroidism, this was not unexpected due to the fact she had stopped her thyroid medications months ago. Patient was placed on IV Decadron to help her mobility, she was seen by PT and OT and was felt to be appropriate for short-term alf services, she requested TCU. MRI was done of her cervical spine due to complaints of numbness in her right hand-this showed severe degenerative joint disease of the cervical spine, she was instructed to follow-up as an outpatient with her PCP concerning this, she was also instructed to follow-up with an outpatient regarding rheumatological [id number] building materials sales attendant that she was presently going to, she did not want to follow-up with. I had a long discussion with her and suggested that she go to [facility] to see [facility]. I briefly talked with her PCP prior to her discharge, PCP stated that she had no records of any rheumatological testing on the patient in her chart. On 12/03/2021, patient was seen and examined: On examination she appeared in good health and spirits, she does not appear to be in any distress. Vital signs as documented. Skin warm and dry and without overt rashes. Neck without JVD, thyroid appears normal, trachea is midline, neck is supple. Lungs clear, normal air movement was noted. Heart exam notable for regular rhythm, normal sounds and absence of murmurs, rubs or gallops. Abdomen unremarkable and without evidence of organomegaly, masses, or abdominal aortic enlargement, bowel sounds are present in all 4 quadrants, no abdominal tenderness was noted. Patient is morbidly obese. Extremities nonedematous, no cyanosis was noted, no clubbing was noted. Neuro: Cranial nerves II through XII are grossly intact, no focal motor deficits were noted, sensation to light touch and pinprick is intact, motor exam 5/5 throughout. Psych: Patient is alert and oriented x3, she does not appear anxious or depressed, she does not appear agitated. Patient appeared to be stable for discharge to TCU for inpatient rehab services on 12/03/2021. Weight / BMI Weight Weight: 148.6 kg Body Mass Index (BMI) 64.0 ABG / Lab / Microbiology Data Result Diagrams: 11/30/21 05:17 11/30/21 05:17 Microbiology: Microbiology 12/03/21 09:15 Nasal Secretion SARS-CoV-2 Antigen (Rapid) - Final Meaningful Use Info Meaningful Use Diagnoses (Choose all that apply): None applicable Discharge Plan Admission Admit Date/Time: 11/29/21 21:07 Primary Reason for Your Visit: Generalized weakness, hypothyroidism, arthritis Attending Provider: Bobby Bajwa Primary Care Provider: Vianca Trujillo Consulting Providers: Ajith Villavicencio ; Karo Cazares Discharge Orders/Prescriptions Prescriptions: New acetaminophen [Tylenol] 325 mg Tablet 650 mg PO Q6H PRN PRN (Reason: Pain Score 1-10/Temp > 100.7 F) Qty: 0 RF: 0 ibuprofen 600 mg Tablet 600 mg PO Q6H PRN PRN (Reason: Pain 1-10 Or Fever) Qty: 0 RF: 0 sennosides-docusate sodium [Stool Softener-Stimulant Laxat] 8.6-50 mg Tablet 2 tab PO BID PRN PRN (Reason: Constipation) Qty: 0 RF: 0 Discontinued acetaminophen [Tylenol Ex Str Arthritis Pain] 500 mg Tablet 1,000 mg PO DAILY RF: 0 ibuprofen [Advil] 200 mg Tablet 800 mg PO DAILY RF: 0 No Action prednisone 20 mg tablet 20 mg PO BID RF: 0 pantoprazole 40 mg tablet,delayed release (DR/EC) 40 mg PO DAILY RF: 0 levothyroxine 150 mcg tablet 150 mcg PO DAILY@0600 RF: 0 gabapentin 100 mg capsule 200 mg PO TIDCM RF: 0 nystatin [Nyamyc] 100,000 unit/gram powder 1 applic topical TID RF: 0 menthol-zinc oxide [Calmoseptine] 0.44-20.6 % ointment 1 applic topical TID RF: 0 Referrals / Follow Up: Vianca Trujillo DO [Primary Care Provider] - Disposition Disposition (needs filled in before D/C Order can be placed): [facility] Facility Charges/Coding Visit Charges OBSV E&M: 57821 Observation care discharge
== END 2021-12-03 14:15 ==
LOC: ED 21:18 → MS3 21:24
PROVIDERS: Nurse Practitioner; Admitting Provider Hospitalist; Emergency Provider Student in an Organized Health Care Education/Training Program; PCP Family Medicine; Visit Provider Internal Medicine
DX: E03.9 Hypothyroidism, unspecified (principal); M06.9 Rheumatoid arthritis, unspecified; E66.01 Morbid (severe) obesity due to excess calories; Z68.44 Body mass index [BMI] 60.0-69.9, adult; Z91.19 Patient's noncompliance with other medical treatment and regimen; I87.2 Venous insufficiency (chronic) (peripheral); I10 Essential (primary) hypertension; R62.7 Adult failure to thrive; M50.30 Other cervical disc degeneration, unspecified cervical region; Z87.891 Personal history of nicotine dependence; M47.812 Spondylosis without myelopathy or radiculopathy, cervical region; Z79.890 Hormone replacement therapy; M13.861 Other specified arthritis, right knee; R53.1 Weakness
CPT/HCPCS: 36415; 71045; 72141; 80048; 80053; 81001; 83880; 84439; 84443; 85025; 85652; 86140; 87426; 93005; 96372; 96374; 96375; 96376; 97110; 97162; 97166; 97530; 97535; 97802; 99218; 99285; A4216; G0378; J1940; J2405

== ENCOUNTER 2021-12-03 14:26 | Inpatient (IN) | payer MEDICARE, SELFPAY ==
[2021-12-03 14:31] VITALS: BP 158/92; PULSE 64; RESP 16; TEMP 37.1; O2SAT 92; BMI 61.7
[2021-12-03] MEDS: Gabapentin 100 MG Capsule 200 MG PO (16:56)
--- NOTE | 2021-12-03 20:23 | HP.PCM_ITS ---
HPI - General General Date of Admission: 12/03/21 HPI Narrative 11/29/2021 MAYCOL PRADO, is a 66 Female who presents to [facility] Emergency Department with weakness. 11/29/2021 EKG normal sinus rhythm, normal EKG. No doctor for 2 years, declined x 6-8 months. Unable to get out of bed, leave house, due to severe joint pain, severe swelling of legs. Labs okay, UA okay, needs placement. Unable to care for self home alone. 11/29/2021 Admit to Hospital. PT/OT for debility. TSH 114, Resume thyroid medication. Tylenol, Ibuprofen for Rheumatoid arthritis pain. 11/30/2021 PT/OT for [facility] facility. Lasix 40mg IV for edema. Gabapentin 100mg tid for bilateral upper extremity numbness. 12/01/2021 IV/PO steroids for Rheumatoid arthritis pain. Consider right total knee replacement for severe OA right knee. 12/02/2021 MRI cervical spine shows right C6 radiculopathy causing tingling right hand. 12/03/2021 Admit to TCU with debility, here for rehabilitation, strengthening, prior to discharge home alone. PFSH Medical History Arthritis Ex-smoker Home Medications acetaminophen [Tylenol] 650 mg PO Q6H PRN PRN #0 tab 12/03/21 [Rx Last Taken Unknown] gabapentin 200 mg PO TIDCM 12/03/21 [History Last Taken Unknown] ibuprofen 600 mg PO Q6H PRN PRN #0 tab 12/03/21 [Rx Last Taken Unknown] levothyroxine 150 mcg PO DAILY@0600 12/03/21 [History Last Taken Unknown] menthol-zinc oxide [Calmoseptine] 1 applic TOPICAL TID 12/03/21 [History Last Taken Unknown] nystatin [Nyamyc] 1 applic TOPICAL TID 12/03/21 [History Last Taken Unknown] pantoprazole 40 mg PO DAILY 12/03/21 [History Last Taken Unknown] prednisone 20 mg PO BID 12/03/21 [History Last Taken Unknown] sennosides-docusate sodium [Stool Softener-Stimulant Laxat] 2 tab PO BID PRN PRN #0 tab 12/03/21 [Rx Last Taken Unknown] Allergy/AdvReac Type Severity Reaction Status Date / Time No Known Allergies Allergy Verified 11/29/21 17:35 Family History Other Hypertension Surgical History History of tonsillectomy Social History (Updated 12/03/21 @ 20:[address] Favian Ventura MD) household members: none Smoking Status: Former smoker alcohol intake: never substance use type: does not use ROS Constitutional Constitutional: Denies chills, fever(s) or weight gain ENT HEENT: Denies headache(s), nasal congestion or nasal discharge Cardiovascular Cardiovascular: Denies chest pain or palpitations Respiratory/Chest Respiratory/Chest: Denies cough, excessive phlegm production or shortness of breath with exertion Gastrointestinal Gastrointestinal: Denies abdominal pain, nausea or vomiting Genitourinary Genitourinary: Denies dysuria Musculoskeletal Musculoskeletal: Denies joint pain or joint swelling Integumentary Integumentary: Denies rash or wounds Neurologic Neurologic: Denies focal weakness, numbness or tingling Psychiatric Psychiatric: Denies anxiety, auditory hallucinations, depression, homicidal ideation or suicidal ideation Vital Signs Vital Signs Vital Signs: 12/03/21 14:31 Temperature 98.7 F Temperature Source Oral Pulse Rate 64 Pulse Rhythm Regular Pulse Strength Normal (2+) Respiratory Rate 16 Respiratory Effort Normal Non-Labored Respiratory Depth Normal Respiratory Pattern Normal Blood Pressure 158/92 H Blood Pressure Mean 114 Blood Pressure Source Monitor Blood Pressure Position Semi-Fowlers Blood Pressure Location Left Forearm Pulse Ox 92 Oxygen Delivery Method Room Air Weight Weight: 143.381 kg Body Mass Index (BMI) 61.7 Physical Exam Const alert General Appearance: cooperative HEENT normocephalic Eyes PERRL and EOMs intact bilaterally Neck supple, no JVD and no carotid bruits Resp normal respiratory effort, normal air movement and clear to auscultation bilaterally Cardio regular rate and regular rhythm GI normal to inspection, nondistended, normoactive bowel sounds, non-tender and non-distended Extremity normal capillary refill General Extremity: edema bilateral (3+) Skin no rashes or lesions noted General Skin Exam: no breakdown Psych affect normal Appearance: appropriate Assessment & Plan Assessment/Plan (1) Debility: (2) Weakness: (3) Degenerative joint disease of cervical spine: (4) Rheumatoid arthritis: QUALIFIERS: Rheumatoid arthritis location: unspecified site Rheumatoid factor presence: unspecified presence Qualified Code(s): M06.9 - Rheumatoid arthritis, unspecified (5) Hypothyroidism: QUALIFIERS: Hypothyroidism type: unspecified Qualified Code(s): E03.9 - Hypothyroidism, unspecified (6) Venous stasis dermatitis: QUALIFIERS: Laterality: bilateral Qualified Code(s): I87.2 - Venous insufficiency (chronic) (peripheral) (7) Morbid obesity with BMI of 60.0-69.9, adult: PLAN: 66 year old female with below past medical history hospitalized for weakness secondary to uncontrolled rheumatoid arthritis, myxedema, admitted to TCU with debility, here for rehabilitation, strengthening, prior to discharge home alone. * Debility - PT/OT. * Pain - Tylenol 1000mg q6h prn pain (1-5), Ibuprofen 600mg q6h prn pain (6-10)> * Bowel - Senna/colace 1 tablet bid, Dulcolax 10mg daily prn. * Adult immunization - Administer pneumonia vaccine, covid19 vaccine, flu vaccine. * DVT prophylaxis - HAS-BLED score 2 intermediate risk, Day score 5 high risk, overall risk high, Rx Xarelto 10mg daily x 30 days. * Right C6 radiculopathy - Gabapentin 200mg tidcm. * Hypothyroidism - Levothyroxine 150mcg daily. * Rheumatoid Arthritis - Medrol dose pack, then [facility] as outpatient. * OA right knee - severe, consider right TKA. * GERD - Pantoprazole 40mg daily to protect her stomach. * Morbid obesity - consider bariatric surgery. * Skin irritation - Calmoseptine topical tid. * Tinea Corporis - Nystatin powder topical tid.
[2021-12-03] MEDS: Nystatin Powder 15gm Bottle 1 APPLIC TOPICAL (20:37)
[2021-12-03] MEDS: Menthol/Lanolin/Calamine/Znox 113 GM Tube 1 APPLIC TOPICAL (20:37)
[2021-12-03] MEDS: Acetaminophen 500 MG Tablet 1000 MG PO (21:49)
[2021-12-03] MEDS: MethylPREDNISolone DosePak 4 MG BOX PO (21:50)
[2021-12-04 06:10] LABS: Absolute Lymphocyte Count 0.65 X10^3/uL (0.83-4.51); Absolute Neutrophil Count 7.2 X10^3/uL (2.0-7.7); Basophil# 0.01 X10^3/uL; Basophil% 0.1 % (0-1); Hematocrit 35.8 % (37-47); Hemoglobin 11.3 g/dL (12.0-15.0); Lymphocyte # 0.65 X10^3/ul (0.83-4.51); Lymphocyte % 7.9 % (19-41); Mean Corp Hgb Conc 31.6 g/dL (32-36); Mean Corpuscular Hgb 32.8 pg (27.0-32.0); Mean Corpuscular Volume 103.8 fL (81-99); Mean Platelet Vol. 10.7 fl (6.2-12.0); Monocyte# 0.29 X10^3/uL; Monocyte% 3.5 % (0-10); NRBC Flagged by Analyzer 0 % (0-5); Neutrophil # 7.18 X10^3/uL (2.7-7.7); Neutrophil % 87.4 % (47-70); Platelet Count 230 K/mm3 (150-450); RBC Distribution Width CV 14.4 % (11.6-14.6); RBC Distribution Width SD 55.3 fl (35.1-43.9); Red Blood Count 3.45 M/mm3 (4.2-5.4); White Blood Count 8.2 K/mm3 (4.4-11.0)
[2021-12-04] MEDS: Pantoprazole Sodium 40 MG Tablet PO (06:24)
[2021-12-04] MEDS: Senna/Docusate Sodium 1 Tablet PO (06:25)
[2021-12-04] MEDS: Levothyroxine 150 MCG Tablet PO (06:25)
[2021-12-04 06:33] LABS: Anion Gap 4 (5-15); BUN 25 mg/dL (7-18); BUN/Creat Ratio 24.3 RATIO (10-20); Calcium,Total 9.4 mg/dL (8.5-10.1); Chloride 106 mmol/L (98-107); Creatinine, Serum 1.03 mg/dL (0.55-1.02); EST Glomerular Filtration Rate 57 mL/min (>60); Est Glom Filt Rate - Afr Amer 69 mL/min (>60); Estimated Creatinine Clearance 38.59 ml/min; Glucose 116 mg/dL (74-106); Potassium 4.2 mmol/L (3.5-5.1); Sodium Level 139 mmol/L (136-145)
[2021-12-04] MEDS: Nystatin Powder 15gm Bottle 1 APPLIC TOPICAL ×3 (06:43→20:31)
[2021-12-04] MEDS: Menthol/Lanolin/Calamine/Znox 113 GM Tube 1 APPLIC TOPICAL ×3 (06:44→20:31)
[2021-12-04] MEDS: MethylPREDNISolone DosePak 4 MG BOX PO ×4 (08:45→20:33)
[2021-12-04] MEDS: Gabapentin 100 MG Capsule 200 MG PO ×3 (08:50→18:13)
--- NOTE | 2021-12-04 10:02 | NURSING ---
resident made aware of staff member that tested COVID positive. attempted to call patient's niece Lisa per request of patient. no answer but voicemail left. resident stated that she would notify Pat of the information.
[2021-12-04] MEDS: Tuberculin,Purif.prot.deriv. 50 TU/ML Vial 0.1 ML ID (11:31)
[2021-12-04] MEDS: 0.9% Saline Lock 10 ML Syringe IV (11:33)
[2021-12-04 15:34] VITALS: BP 140/75; PULSE 66; RESP 18; TEMP 36.3; O2SAT 91
--- NOTE | 2021-12-04 16:32 | CASEMGMT ---
Social Work Met with patient to complete initial assessment. Introduced self and role. Niece present in room. Pt granted permission to complete assessment with niece present. Pt wishes to have sister, Hui, as primary contact and niece, Lisa, as secondary. Pt requested blank copies of advanced directives to review prior to potentially completing. Copies and explanations provided by this worker. Discussed code status and MOLST form. Pt confirmed full code. MOLST communicated to , placed in chart. Explained Medicare benefit. Pt does not have secondary insurance. Explained copays begin on day 21, 12/23, that would be billed for out of pocket cost. Pt prefers to be discharged by that date, but if not, states she can pay privately. The goal is for pt to return home alone. Pt states I could be home alone right now and be just fine, but I want to learn and get better. My family wants me to have a ramp to get into my trailer, but if I can do the steps, I want to be able to do the steps. Validated feelings. Pt reports to not have driven in the last year, but can still drive and that was by choice. Her family offers to get her medications or bring her groceries. Pt also gets groceries delivered and uses Telehealth to have doctor's appts. Pt reports the last time she completed her steps in and out of her trailer is approx. February 2021. The family also has goals to take out garden tub in bathroom, replace with walk-in shower and reconfigure the toilet, all to make a more functional bathroom. Pt currently sponge bathes. SW will continue to follow for discharge planning assistance. AMINA Gonzalez
[2021-12-04] MEDS: Rivaroxaban 10 MG Tablet PO (18:14)
--- NOTE | 2021-12-04 18:22 | NURSING ---
OK PER THERAPY, FAMILY CAN WALK PT IN ROOM.
[2021-12-04 20:29] VITALS: BP 149/81; PULSE 61; TEMP 36.2; O2SAT 93
[2021-12-04] MEDS: MELATONIN 10 MG TABLET PO (20:31)
[2021-12-04] MEDS: Acetaminophen 500 MG Tablet 1000 MG PO (20:39)
[2021-12-05] MEDS: Gabapentin 100 MG Capsule 200 MG PO ×3 (06:19→17:21)
[2021-12-05] MEDS: Menthol/Lanolin/Calamine/Znox 113 GM Tube 1 APPLIC TOPICAL ×3 (06:19→20:48)
[2021-12-05] MEDS: Nystatin Powder 15gm Bottle 1 APPLIC TOPICAL ×3 (06:19→20:47)
[2021-12-05] MEDS: Pantoprazole Sodium 40 MG Tablet PO (06:20)
[2021-12-05] MEDS: Senna/Docusate Sodium 1 Tablet PO (06:20)
[2021-12-05] MEDS: Levothyroxine 150 MCG Tablet PO (06:20)
[2021-12-05] MEDS: MethylPREDNISolone DosePak 4 MG BOX PO ×4 (08:12→20:44)
[2021-12-05 08:15] VITALS: PULSE 54; RESP 18; O2SAT 96
--- NOTE | 2021-12-05 10:11 | NS ---
Provided copy of first choice/daily specials menu w/ instructions on how to order
[2021-12-05 11:24] VITALS: PULSE 20; RESP 58; TEMP 30.7; O2SAT 97
--- NOTE | 2021-12-05 11:36 | NURSING ---
PT COMPLAINED OF ALLERGIES AND WANTED SOME THING FOR IT AND EYE DROPS. NOTE LEFT FOR AND RN AWARE.
[2021-12-05] MEDS: 0.9% Saline Lock 10 ML Syringe IV (11:57)
[2021-12-05 13:08] VITALS: BP 126/69
--- NOTE | 2021-12-05 13:35 | RAD_ITS ---
STUDY: X-RAY - RIGHT SHOULDER REASON FOR EXAM: Female, 66 years old. Fall, pain. TECHNIQUE: 4 view(s) of the shoulder. COMPARISON: None. FINDINGS: There is severe degenerative arthrosis of the glenohumeral articulation. There is hypertrophic osteoarthrosis of the acromioclavicular joint with inferior osseous spur formation. Normal acromion. Sclerosis and irregularity of the humeral head suggestive of old injury. The soft tissue structures are unremarkable. Normal visualized pulmonary apex. RAD/Shoulder min 2 Views IMPRESSION: Marked degree of the osteoarthritis of the right glenohumeral joint. Irregular sclerosis of the humeral head suggestive of old injury. Electronically Signed: Arcenio Esposito MD at 16:13 EDT ,
[2021-12-05] MEDS: Loratadine 10 MG Tablet PO (14:53)
[2021-12-05] MEDS: Glycerin/Hypromellose/PEG400 15 ml Bottle 2 DRP EACH EYE (14:54)
[2021-12-05] MEDS: Rivaroxaban 10 MG Tablet PO (17:21)
--- NOTE | 2021-12-05 18:28 | PCM.PN.RX ---
Progress Note - Pharmacy Subjective: TCU Admission. 66 YOF presented to ER with weakness. Admitted to hospital, found to have elevated TSH and uncontrolled rheumatoid arthritis. Admitted to TCU with debility for rehabilitation and strengthening. Objective: Allergies No Known Allergies Allergy (Verified 11/29/21 17:35) Current Medications Generic Name Dose Route Start Last Admin Trade Name Freq PRN Reason Stop Dose Admin Acetaminophen 1,000 mg 12/03/21 20:40 12/04/21 20:39 Acetaminophen 500 Mg Tablet PO 1,000 mg Q6H PRN PRN Administration Pain Score 1-5 Bisacodyl 10 mg 12/03/21 20:39 Bisacodyl 5 Mg Tablet PO DAILY PRN Constipation Calamine/Phenol 1 applic 12/03/21 22:00 12/05/21 13:21 Menthol/Lanolin/Calamine/Znox 113 Gm Tube TOPICAL 1 applic TID LINDA Administration Protocol Gabapentin 200 mg 12/03/21 17:45 12/05/21 17:21 Gabapentin 100 Mg Capsule PO 200 mg TIDCM LINDA Administration Ibuprofen 600 mg 12/03/21 20:40 Ibuprofen 600 Mg Tablet PO Q6H PRN PRN Pain Score 6-10 Levothyroxine Sodium 150 mcg 12/04/21 06:00 12/05/21 06:20 Levothyroxine 150 Mcg Tablet PO 150 mcg DAILY@0600 LINDA Administration Loratadine 10 mg 12/05/21 13:45 12/05/21 14:53 Loratadine 10 Mg Tablet PO 10 mg DAILY LINDA Administration Melatonin 10 mg 12/04/21 22:00 12/04/21 20:31 Melatonin 10 Mg Tablet PO 10 mg QHS LINDA Administration Methylprednisolone 4 mg 12/03/21 22:00 12/05/21 17:21 Methylprednisolone Dosepak 4 Mg Box PO 12/08/21 08:59 4 mg 0800,1200,1700,2200 LINDA Administration Taper Nystatin 1 applic 12/03/21 22:00 12/05/21 13:22 Nystatin Powder 15gm Bottle TOPICAL 1 applic TID LINDA Administration Protocol Pantoprazole Sodium 40 mg 12/04/21 06:00 12/05/21 06:20 Pantoprazole Sodium 40 Mg Tablet PO 40 mg DAILY LINDA Administration Rivaroxaban 10 mg 12/04/21 17:00 12/05/21 17:21 Rivaroxaban 10 Mg Tablet PO 01/03/22 17:01 10 mg DINNER LINDA Administration Senna/Docusate Sodium 1 tablet 12/04/21 06:00 12/05/21 17:19 Senna/Docusate Sodium 1 Tablet PO Not Given BID LINDA Sodium Chloride 10 - 40 ml 12/03/21 14:43 12/05/21 11:57 0.9% Saline Lock 10 Ml Syringe IV 10 ml UD PRN Administration SALINE FLUSH Tuberculin PPD 0.1 ml 12/11/21 10:00 Tuberculin,Purif.Prot.Deriv. 50 Tu/Ml Vial ID 12/11/21 10:01 X1 ONE Problem List (Last Reviewed 12/03/21 @ 20:[address] Favian Ventura MD) Morbid obesity with BMI of 60.0-69.9, adult (Acute) Debility (Acute) Degenerative joint disease of cervical spine (Chronic) Weakness (Acute) Rheumatoid arthritis (Chronic) Hypothyroidism (Chronic) Venous stasis dermatitis (Acute) Vital Signs Temp Pulse Resp BP Pulse Ox 87.3 F L 20 L 58 H 126/69 H 97 12/05/21 11:24 12/05/21 11:24 12/05/21 11:24 12/05/21 13:08 12/05/21 11:24 Oxygen Delivery Method Room Air Weight: 143.381 kg Body Mass Index (BMI) 61.7 Sodium 139 mmol/L (136-145) 12/04/21 05:47 Potassium 4.2 mmol/L (3.5-5.1) 12/04/21 05:47 Chloride 106 mmol/L (98-107) 12/04/21 05:47 Carbon Dioxide 29.0 mmol/L (21.0-32.0) 12/04/21 05:47 Anion Gap 4 (5-15) L 12/04/21 05:47 BUN 25 mg/dL (7-18) H 12/04/21 05:47 Creatinine 1.03 mg/dL (0.55-1.02) H 12/04/21 05:47 Est GFR (MDRD) Af Amer 69 mL/min (>60) 12/04/21 05:47 Est GFR (MDRD) Non-Af 57 mL/min (>60) L 12/04/21 05:47 BUN/Creatinine Ratio 24.3 RATIO (10-20) H 12/04/21 05:47 Glucose 116 mg/dL (74-106) H 12/04/21 05:47 Assessment/Plan: 1. Pain: acetaminophen 1000mg PO Q6H PRN pain1-5 and ibuprofen 600mg PO Q6H PRN pain 6-10. Resident has received 2 doses of acetaminophen for pain scores of 4 and 7. Has not received any ibuprofen. Please continue to monitor for increased pain and PRN usage. 2. Bowel regimen: senna/docusate 1T PO BID and bisacodyl 10mg PO daily PRN constipation. Please continue to monitor for constipation and PRN usage. 3. DVT prophylaxis: rivaroxaban 10mg PO DINNER thru 01/03/22. Please continue to monitor for S/S of bleeding/DVT and hemoglobin (last 11.3g/dL). 4. Rheumatoid arthritis: Medrol taper. Please continue to monitor for upset stomach, blood glucose and insomnia. 5. Hypothyroidism: levothyroxine 150mcg PO daily. Please continue to monitor for S/S of hypo/hyperthyroidism and TSH (last 11/29/21) as clinically appropriate. 6. GERD: pantoprazole 40mg PO daily. Please continue to monitor for S/S of GERD and diarrhea. 7. Allergies (per nursing note): loratadine 10mg PO daily. Please continue to monitor for S/S of allergies and renal function. Psychotropic Medications: 1. Right C6 radiculopathy: gabapentin 200mg PO TIDCM. Please continue to monitor renal function and for confusion. Recently started medication. GDR not appropriate. Medication Irregularities: *1. Melatonin 10mg PO QHS. I did not see a documented indication for this medication. Please consider adding an indication if clinically appropriate. Date of Note:: 12/05/21
--- NOTE | 2021-12-06 01:48 | NURSING ---
Pt requests Melatonin be switched to PRN. Note left for Dr. Ventura.
[2021-12-06] MEDS: Loratadine 10 MG Tablet PO (05:16)
[2021-12-06] MEDS: Pantoprazole Sodium 40 MG Tablet PO (05:16)
[2021-12-06] MEDS: Levothyroxine 150 MCG Tablet PO (05:19)
[2021-12-06] MEDS: Ibuprofen 600 MG Tablet PO ×2 (05:22→21:58)
[2021-12-06] MEDS: Glycerin/Hypromellose/PEG400 15 ml Bottle 2 DRP EACH EYE ×2 (05:23→22:01)
[2021-12-06] MEDS: Menthol/Lanolin/Calamine/Znox 113 GM Tube 1 APPLIC TOPICAL ×3 (05:29→21:59)
[2021-12-06] MEDS: Nystatin Powder 15gm Bottle 1 APPLIC TOPICAL ×3 (05:29→22:00)
[2021-12-06] MEDS: MethylPREDNISolone DosePak 4 MG BOX PO ×3 (07:56→21:59)
[2021-12-06] MEDS: Gabapentin 100 MG Capsule 200 MG PO ×3 (07:59→17:05)
[2021-12-06 13:50] VITALS: BP 151/84; PULSE 63; RESP 16; TEMP 36.3; O2SAT 96
[2021-12-06] MEDS: Rivaroxaban 10 MG Tablet PO (17:05)
[2021-12-06] MEDS: Acetaminophen 500 MG Tablet 1000 MG PO (19:54)
[2021-12-06 20:43] VITALS: RESP 18; O2SAT 95
[2021-12-07] MEDS: Ibuprofen 600 MG Tablet PO ×2 (06:27→22:04)
[2021-12-07] MEDS: Menthol/Lanolin/Calamine/Znox 113 GM Tube 1 APPLIC TOPICAL ×3 (06:29→21:22)
[2021-12-07] MEDS: Loratadine 10 MG Tablet PO (06:30)
[2021-12-07] MEDS: Nystatin Powder 15gm Bottle 1 APPLIC TOPICAL ×3 (06:30→21:22)
[2021-12-07] MEDS: Pantoprazole Sodium 40 MG Tablet PO (06:30)
[2021-12-07] MEDS: Levothyroxine 150 MCG Tablet PO (06:31)
[2021-12-07] MEDS: Glycerin/Hypromellose/PEG400 15 ml Bottle 2 DRP EACH EYE ×4 (06:31→21:24)
[2021-12-07] MEDS: Senna/Docusate Sodium 1 Tablet PO ×2 (06:31→17:23)
[2021-12-07] MEDS: Gabapentin 100 MG Capsule 200 MG PO ×3 (08:42→17:23)
[2021-12-07] MEDS: MethylPREDNISolone DosePak 4 MG BOX PO ×2 (08:42→21:22)
--- NOTE | 2021-12-07 08:49 | NURSING ---
Patient expressed concerns that family overs peaks for her and doesn't allow her to answer questions about her own health and goals. Patient alert and oriented times four and able to answer and make own decisions.
[2021-12-07 09:08] VITALS: PULSE 60; RESP 16; O2SAT 98
--- NOTE | 2021-12-07 13:14 | NURSING ---
Notified Dr. Ventura of pt request, received order to change Melatonin to PRN per pt request.
[2021-12-07 13:54] VITALS: BP 142/76; PULSE 63; RESP 18; TEMP 36.4; O2SAT 94
[2021-12-07] MEDS: Rivaroxaban 10 MG Tablet PO (17:23)
[2021-12-07] MEDS: Acetaminophen 500 MG Tablet 1000 MG PO (17:29)
[2021-12-08] MEDS: Acetaminophen 500 MG Tablet 1000 MG PO (01:25)
[2021-12-08] MEDS: Nystatin Powder 15gm Bottle 1 APPLIC TOPICAL ×3 (06:17→20:23)
[2021-12-08] MEDS: Menthol/Lanolin/Calamine/Znox 113 GM Tube 1 APPLIC TOPICAL ×3 (06:17→20:23)
[2021-12-08] MEDS: Senna/Docusate Sodium 1 Tablet PO (06:18)
[2021-12-08] MEDS: Loratadine 10 MG Tablet PO (06:18)
[2021-12-08] MEDS: Pantoprazole Sodium 40 MG Tablet PO (06:19)
[2021-12-08] MEDS: Levothyroxine 150 MCG Tablet PO (06:20)
[2021-12-08] MEDS: Glycerin/Hypromellose/PEG400 15 ml Bottle 2 DRP EACH EYE ×2 (06:20→13:14)
[2021-12-08] MEDS: Ibuprofen 600 MG Tablet PO ×2 (06:34→20:21)
[2021-12-08] MEDS: Gabapentin 100 MG Capsule 200 MG PO ×3 (08:19→17:10)
[2021-12-08] MEDS: MethylPREDNISolone DosePak 4 MG BOX PO (08:20)
[2021-12-08 09:42] VITALS: PULSE 67; RESP 20; TEMP 36; O2SAT 97
[2021-12-08 12:57] VITALS: BP 139/89
[2021-12-08 14:15] VITALS: BP 134/74; PULSE 55
[2021-12-08] MEDS: Rivaroxaban 10 MG Tablet PO (17:10)
[2021-12-08 20:20] VITALS: O2SAT 98
[2021-12-09] MEDS: Acetaminophen 500 MG Tablet 1000 MG PO ×2 (02:15→13:09)
[2021-12-09] MEDS: Senna/Docusate Sodium 1 Tablet PO (05:16)
[2021-12-09] MEDS: Pantoprazole Sodium 40 MG Tablet PO (05:16)
[2021-12-09] MEDS: Loratadine 10 MG Tablet PO (05:16)
[2021-12-09] MEDS: Levothyroxine 150 MCG Tablet PO (05:17)
[2021-12-09] MEDS: Nystatin Powder 15gm Bottle 1 APPLIC TOPICAL ×3 (05:18→20:27)
[2021-12-09] MEDS: Menthol/Lanolin/Calamine/Znox 113 GM Tube 1 APPLIC TOPICAL ×3 (05:18→20:28)
[2021-12-09] MEDS: Gabapentin 100 MG Capsule 200 MG PO ×3 (08:35→16:46)
[2021-12-09] MEDS: COVID-19 VACC, MRNA(PFIZER)/PF 30 MCG/0.3 ML SYRINGE IM (08:43)
[2021-12-09 13:42] VITALS: BP 127/56; PULSE 62; RESP 18; TEMP 35.7; O2SAT 94
--- NOTE | 2021-12-09 13:48 | NURSING ---
Pt inquired about Xarelto and why she was taking it. Pt expressed that she is not thrilled with taking a blood thinner and is requesting it to be discontinued unless absolutely necessary. Pt also ordered motrin for pain and states the motrin helps her rheumatoid pain more than the tylenol but is concerened with taking motrin and a blood thinner. Pt expressed concern for return pain now that her prednisone was completed and would like to talk to someone from pain management about possible injection to her knee stating when she is not on steroids her pain is greater and and has increased weakness and difficulty walking. Message left for Dr. Ventura about pt's concerns
--- NOTE | 2021-12-09 15:32 | CHAPLAIN ---
Type of Pastoral Visit _x__ Initial Visit ___ Follow-up Visit ___ On-call Visit ___ General Patient Visit ___ Spiritual Assessment ___ Family Conference ___ Bereavement ___ Rapid Response ___ Code Blue ___ Other (describe below) Pastoral Care Referral From _x__ Patient ___ Family ___ Nurse ___ Physician ___ Enterprise Security Architect ___ Electric Motorman ___ Other (describe below) Sacrament/Intervention _x__ Active listening ___ Anointing ___ Presybeterian ___ Bereavement ___ Communion ___ Elis exploration ___ _x__ Life review _x__ Prayer ___ Reconciliation ___ Sacrament of Sick ___ Supportive presence _x__ Wedding ___ Other (describe below) Pastoral Comments patient very welcoming and talkative; pt gives some life stories and perspective on her 'normal life routine'; pt speaks of being content and living a simple life; pt is enjoying the view from her window as she loves to 'people watch'; pt is Caodaism and would welcome prayer support
[2021-12-09] MEDS: Rivaroxaban 10 MG Tablet PO (16:47)
--- NOTE | 2021-12-09 18:21 | NURSING ---
Dr. York updated on consult
[2021-12-09] MEDS: Ibuprofen 600 MG Tablet PO (20:23)
[2021-12-10] MEDS: Loratadine 10 MG Tablet PO (05:31)
[2021-12-10] MEDS: Pantoprazole Sodium 40 MG Tablet PO (05:31)
[2021-12-10] MEDS: Levothyroxine 150 MCG Tablet PO (05:31)
[2021-12-10] MEDS: Senna/Docusate Sodium 1 Tablet PO (05:32)
[2021-12-10] MEDS: Nystatin Powder 15gm Bottle 1 APPLIC TOPICAL ×3 (05:36→23:02)
[2021-12-10] MEDS: Menthol/Lanolin/Calamine/Znox 113 GM Tube 1 APPLIC TOPICAL ×3 (05:36→23:03)
--- NOTE | 2021-12-10 08:33 | NURSING ---
Parcel Post Weigher Note: Interview and Section F of MDS complete.
[2021-12-10] MEDS: Gabapentin 100 MG Capsule 200 MG PO ×3 (08:38→17:32)
[2021-12-10] MEDS: Ibuprofen 600 MG Tablet PO ×2 (08:38→23:02)
--- NOTE | 2021-12-10 09:02 | CASEMGMT ---
Social Work IDT met with patient and dtr via conference call for care plan meeting. Discussed patient's progress in PT/OT/SN. Explained Medicare benefit. Pt does not have a secondary insurance, thus day 21 is 12/23 and EDC. The goal is for pt to return home alone with 3 ESTRADA but family installing ramp to enter home. Pt continues to progress. SW to continue to follow for DC plans. AMINA GonzalezW
[2021-12-10 10:27] VITALS: RESP 20; TEMP 36.1
[2021-12-10 10:55] VITALS: PULSE 61; O2SAT 93
[2021-12-10 12:01] VITALS: BP 132/75
[2021-12-10] MEDS: Acetaminophen 500 MG Tablet 1000 MG PO (13:41)
--- NOTE | 2021-12-10 16:31 | CASEMGMT ---
Social Work BIMS and PHQ-9 completed for MDS assessment. Pt asked more questions about HHC at [place]. Provided skilled HHC list with quality and resource data. Donna Razo MSW REEL STRIPPER
[2021-12-10 22:00] VITALS: PULSE 58; RESP 18; O2SAT 93
--- NOTE | 2021-12-11 03:45 | NURSING ---
Dr. Eddy saw pt today at 1930 for consult d/t pain R knee. Ordered Camak 11/04/24 PRN BID. Pt will receive shot R knee Wednesday12/15/21.
[2021-12-11 05:49] LABS: Absolute Lymphocyte Count 0.77 X10^3/uL (0.83-4.51); Absolute Neutrophil Count 3.9 X10^3/uL (2.0-7.7); Basophil# 0.01 X10^3/uL; Basophil% 0.2 % (0-1); Eosinophils% 5.4 % (0-5); Hematocrit 35.7 % (37-47); Hemoglobin 10.8 g/dL (12.0-15.0); Lymphocyte # 0.77 X10^3/ul (0.83-4.51); Lymphocyte % 13.8 % (19-41); Mean Corp Hgb Conc 30.3 g/dL (32-36); Mean Corpuscular Hgb 32.1 pg (27.0-32.0); Mean Corpuscular Volume 106.3 fL (81-99); Mean Platelet Vol. 11.1 fl (6.2-12.0); Monocyte% 10.7 % (0-10); NRBC Flagged by Analyzer 0 % (0-5); Neutrophil # 3.89 X10^3/uL (2.7-7.7); Neutrophil % 69.4 % (47-70); Platelet Count 199 K/mm3 (150-450); RBC Distribution Width CV 14.8 % (11.6-14.6); RBC Distribution Width SD 57.8 fl (35.1-43.9); Red Blood Count 3.36 M/mm3 (4.2-5.4); White Blood Count 5.6 K/mm3 (4.4-11.0)
[2021-12-11] MEDS: Nystatin Powder 15gm Bottle 1 APPLIC TOPICAL ×2 (05:54→14:05)
[2021-12-11] MEDS: Senna/Docusate Sodium 1 Tablet PO (05:55)
[2021-12-11] MEDS: Loratadine 10 MG Tablet PO (05:55)
[2021-12-11] MEDS: Pantoprazole Sodium 40 MG Tablet PO (05:55)
[2021-12-11] MEDS: Levothyroxine 150 MCG Tablet PO (05:56)
[2021-12-11 05:57] VITALS: BP 118/69; PULSE 56; RESP 16; TEMP 36.2; O2SAT 93
[2021-12-11] MEDS: Menthol/Lanolin/Calamine/Znox 113 GM Tube 1 APPLIC TOPICAL ×3 (05:58→22:22)
[2021-12-11 06:20] LABS: Anion Gap 2 (5-15); BUN 21 mg/dL (7-18); BUN/Creat Ratio 25.7 RATIO (10-20); Chloride 111 mmol/L (98-107); Creatinine, Serum 0.82 mg/dL (0.55-1.02); EST Glomerular Filtration Rate 74 mL/min (>60); Est Glom Filt Rate - Afr Amer 90 mL/min (>60); Estimated Creatinine Clearance 48.47 ml/min; Glucose 95 mg/dL (74-106); Potassium 4.3 mmol/L (3.5-5.1); Sodium Level 142 mmol/L (136-145)
[2021-12-11] MEDS: Gabapentin 300 MG Capsule PO ×3 (08:37→22:14)
[2021-12-11] MEDS: Tuberculin,Purif.prot.deriv. 50 TU/ML Vial 0.1 ML ID (10:02)
[2021-12-11 10:45] VITALS: PULSE 62; RESP 20; TEMP 35.5; O2SAT 99
[2021-12-11] MEDS: HYDROcodone Bitartrate/Apap 5/325 Tablet PO (12:27)
--- NOTE | 2021-12-11 14:01 | NURSING ---
Family and patient notified of staff member testing positive.
[2021-12-11 14:55] VITALS: BP 146/68
[2021-12-11] MEDS: Ibuprofen 600 MG Tablet PO (17:04)
[2021-12-11] MEDS: Fluticasone 0.05% 1 SPRAY NASAL.SRY NASAL (17:05)
[2021-12-11] MEDS: Acetaminophen 500 MG Tablet 1000 MG PO (22:19)
[2021-12-12] MEDS: Nystatin Powder 15gm Bottle 1 APPLIC TOPICAL ×4 (01:22→21:56)
[2021-12-12 06:00] VITALS: BP 104/60; PULSE 55; RESP 18; TEMP 36.4; O2SAT 95
[2021-12-12] MEDS: Levothyroxine 150 MCG Tablet PO (06:00)
[2021-12-12] MEDS: Fluticasone 0.05% 1 SPRAY NASAL.SRY NASAL ×2 (06:00→16:56)
[2021-12-12] MEDS: Loratadine 10 MG Tablet PO (06:00)
[2021-12-12] MEDS: Senna/Docusate Sodium 1 Tablet PO (06:00)
[2021-12-12] MEDS: Ibuprofen 600 MG Tablet PO ×2 (06:01→20:00)
[2021-12-12] MEDS: Menthol/Lanolin/Calamine/Znox 113 GM Tube 1 APPLIC TOPICAL ×3 (06:02→21:56)
[2021-12-12] MEDS: Pantoprazole Sodium 40 MG Tablet PO (06:02)
[2021-12-12] MEDS: Gabapentin 300 MG Capsule PO ×3 (08:16→21:55)
[2021-12-12] MEDS: Furosemide 40 MG Tablet PO (09:29)
--- NOTE | 2021-12-12 11:54 | NURSING ---
Pt requesting to have lasix changed to HS due to using a purewick at night. Pt voiding a lot this morning and is hindering her ability to participate in therapy, pharmacist updated and stated she would change lasix to bedtime.
[2021-12-12 14:51] VITALS: BP 116/72; PULSE 62; RESP 18; TEMP 36.2; O2SAT 93
[2021-12-12] MEDS: HYDROcodone Bitartrate/Apap 5/325 Tablet PO (16:54)
[2021-12-12] MEDS: Acetaminophen 500 MG Tablet 1000 MG PO (20:01)
[2021-12-12 22:25] VITALS: PULSE 62; RESP 16; O2SAT 97
[2021-12-13] MEDS: Loratadine 10 MG Tablet PO (06:29)
[2021-12-13] MEDS: Menthol/Lanolin/Calamine/Znox 113 GM Tube 1 APPLIC TOPICAL ×3 (06:29→22:41)
[2021-12-13] MEDS: Fluticasone 0.05% 1 SPRAY NASAL.SRY NASAL ×2 (06:30→16:39)
[2021-12-13] MEDS: Levothyroxine 150 MCG Tablet PO (06:31)
[2021-12-13] MEDS: Pantoprazole Sodium 40 MG Tablet PO (06:31)
[2021-12-13] MEDS: Nystatin Powder 15gm Bottle 1 APPLIC TOPICAL ×3 (06:31→22:41)
[2021-12-13] MEDS: Senna/Docusate Sodium 1 Tablet PO (06:32)
[2021-12-13 07:40] VITALS: BP 117/64; PULSE 66; RESP 14; TEMP 35.6
[2021-12-13] MEDS: Gabapentin 300 MG Capsule PO ×3 (07:58→22:40)
[2021-12-13] MEDS: Acetaminophen 500 MG Tablet 1000 MG PO (07:58)
[2021-12-13] MEDS: Potassium Chloride Oral Tablet 20 MEQ PO (07:59)
[2021-12-13 09:30] VITALS: PULSE 58; RESP 18; O2SAT 96
[2021-12-13] MEDS: Ibuprofen 600 MG Tablet PO (13:52)
[2021-12-13 16:33] VITALS: BP 119/67; RESP 18; TEMP 37.2; O2SAT 91
[2021-12-13] MEDS: Furosemide 40 MG Tablet PO (22:41)
[2021-12-14] MEDS: HYDROcodone Bitartrate/Apap 5/325 Tablet PO ×2 (02:17→22:30)
[2021-12-14] MEDS: Levothyroxine 150 MCG Tablet PO (06:37)
[2021-12-14] MEDS: Pantoprazole Sodium 40 MG Tablet PO (06:38)
[2021-12-14] MEDS: Senna/Docusate Sodium 1 Tablet PO (06:38)
[2021-12-14] MEDS: Nystatin Powder 15gm Bottle 1 APPLIC TOPICAL ×3 (06:38→21:34)
[2021-12-14] MEDS: Loratadine 10 MG Tablet PO (06:38)
[2021-12-14] MEDS: Fluticasone 0.05% 1 SPRAY NASAL.SRY NASAL ×2 (06:38→16:56)
[2021-12-14] MEDS: Menthol/Lanolin/Calamine/Znox 113 GM Tube 1 APPLIC TOPICAL ×3 (06:38→21:35)
[2021-12-14] MEDS: Ibuprofen 600 MG Tablet PO ×2 (08:01→21:33)
[2021-12-14] MEDS: Gabapentin 300 MG Capsule PO ×3 (08:01→22:30)
[2021-12-14] MEDS: Potassium Chloride Oral Tablet 20 MEQ PO (08:02)
[2021-12-14 13:35] VITALS: PULSE 68; RESP 20; O2SAT 94
[2021-12-14 14:56] VITALS: BP 106/55; TEMP 36.4
[2021-12-14 21:40] VITALS: O2SAT 96
[2021-12-14] MEDS: Furosemide 40 MG Tablet PO (22:30)
[2021-12-15] MEDS: Acetaminophen 500 MG Tablet 1000 MG PO (01:14)
[2021-12-15] MEDS: Loratadine 10 MG Tablet PO (06:29)
[2021-12-15] MEDS: Fluticasone 0.05% 1 SPRAY NASAL.SRY NASAL ×2 (06:29→17:14)
[2021-12-15] MEDS: Nystatin Powder 15gm Bottle 1 APPLIC TOPICAL ×3 (06:29→20:19)
[2021-12-15] MEDS: Levothyroxine 150 MCG Tablet PO (06:29)
[2021-12-15] MEDS: Senna/Docusate Sodium 1 Tablet PO (06:29)
[2021-12-15] MEDS: Pantoprazole Sodium 40 MG Tablet PO (06:29)
[2021-12-15] MEDS: Menthol/Lanolin/Calamine/Znox 113 GM Tube 1 APPLIC TOPICAL ×3 (06:30→20:12)
[2021-12-15] MEDS: Ibuprofen 600 MG Tablet PO ×2 (06:33→20:18)
[2021-12-15] MEDS: Potassium Chloride Oral Tablet 20 MEQ PO (08:42)
[2021-12-15] MEDS: Gabapentin 300 MG Capsule PO ×3 (08:46→22:50)
--- NOTE | 2021-12-15 12:18 | MDS.RN ---
Information for the mds was obtained from review of the clinical record, interview of resident, staff, and direct observation of resident's care.
[2021-12-15 15:11] VITALS: BP 118/68; PULSE 58; RESP 20; TEMP 36.1; O2SAT 91
[2021-12-15] MEDS: HYDROcodone Bitartrate/Apap 5/325 Tablet PO ×2 (15:23→22:50)
[2021-12-15] MEDS: ALPRAZolam 0.25 MG Tablet PO (17:13)
[2021-12-15] MEDS: Bupivacaine 0.25% 30 ML Vial OPERA.SITE (17:16)
[2021-12-15] MEDS: Triamcinolone Acetonide 40 MG/ML Vial INTRAARTIC (17:16)
--- NOTE | 2021-12-15 17:52 | NURSING ---
Dr. York in this evening and performed a right intra-articular knee steroid injection using 0.25% Marcaine and 40mg Kenalog with assistance from this nurse, pt tolerated procedure well and thanked Dr. York for his care.
[2021-12-15] MEDS: DULoxetine Hcl 30 MG Capsule PO (18:57)
[2021-12-15] MEDS: Furosemide 40 MG Tablet PO (22:50)
[2021-12-16] MEDS: Loratadine 10 MG Tablet PO (05:14)
[2021-12-16] MEDS: Pantoprazole Sodium 40 MG Tablet PO (05:14)
[2021-12-16] MEDS: DULoxetine Hcl 30 MG Capsule PO (05:14)
[2021-12-16] MEDS: Levothyroxine 150 MCG Tablet PO (05:14)
[2021-12-16] MEDS: Senna/Docusate Sodium 1 Tablet PO (05:15)
[2021-12-16] MEDS: Fluticasone 0.05% 1 SPRAY NASAL.SRY NASAL ×2 (05:15→16:43)
[2021-12-16] MEDS: Nystatin Powder 15gm Bottle 1 APPLIC TOPICAL ×3 (05:19→21:49)
[2021-12-16] MEDS: Menthol/Lanolin/Calamine/Znox 113 GM Tube 1 APPLIC TOPICAL ×3 (05:19→21:49)
[2021-12-16] MEDS: Potassium Chloride Oral Tablet 20 MEQ PO (08:04)
[2021-12-16] MEDS: Gabapentin 300 MG Capsule PO ×3 (08:04→21:52)
--- NOTE | 2021-12-16 13:57 | CASEMGMT ---
Social Work Spoke with pt about DC plans. Pt states she feels like she is finally doing better with therapy, and can pay privately for copays if needs to be here longer than day 21. SW stated she can choose DC date and to notify SW when ready. Pt appreciative. Donna Razo, OPERATING THEATRE TECHNICIAN RN LONG TERM CARE
[2021-12-16 14:33] VITALS: BP 116/71; PULSE 62; RESP 20; TEMP 36.2; O2SAT 94
[2021-12-16] MEDS: Acetaminophen 500 MG Tablet 1000 MG PO (16:41)
[2021-12-16] MEDS: Furosemide 40 MG Tablet PO (21:45)
[2021-12-17] MEDS: Acetaminophen 500 MG Tablet 1000 MG PO ×2 (02:04→16:51)
[2021-12-17] MEDS: Levothyroxine 150 MCG Tablet PO (06:28)
[2021-12-17] MEDS: Loratadine 10 MG Tablet PO (06:28)
[2021-12-17] MEDS: Pantoprazole Sodium 40 MG Tablet PO (06:28)
[2021-12-17] MEDS: DULoxetine Hcl 30 MG Capsule PO (06:28)
[2021-12-17] MEDS: Senna/Docusate Sodium 1 Tablet PO (06:28)
[2021-12-17] MEDS: Fluticasone 0.05% 1 SPRAY NASAL.SRY NASAL ×2 (06:31→16:49)
[2021-12-17] MEDS: Nystatin Powder 15gm Bottle 1 APPLIC TOPICAL ×3 (06:36→23:14)
[2021-12-17] MEDS: Menthol/Lanolin/Calamine/Znox 113 GM Tube 1 APPLIC TOPICAL ×3 (06:36→23:14)
[2021-12-17] MEDS: Gabapentin 300 MG Capsule PO ×3 (07:50→23:12)
[2021-12-17] MEDS: Potassium Chloride Oral Tablet 20 MEQ PO (07:51)
[2021-12-17] MEDS: Ibuprofen 600 MG Tablet PO (10:35)
[2021-12-17 12:13] VITALS: BP 137/73; PULSE 60; RESP 20; TEMP 35.7; O2SAT 95
[2021-12-17] MEDS: Furosemide 40 MG Tablet PO (23:13)
[2021-12-17 23:26] VITALS: PULSE 62; RESP 16; O2SAT 96
[2021-12-18] MEDS: DULoxetine Hcl 30 MG Capsule PO (05:04)
[2021-12-18] MEDS: Levothyroxine 150 MCG Tablet PO (05:04)
[2021-12-18] MEDS: Senna/Docusate Sodium 1 Tablet PO (05:04)
[2021-12-18] MEDS: Pantoprazole Sodium 40 MG Tablet PO (05:04)
[2021-12-18] MEDS: Fluticasone 0.05% 1 SPRAY NASAL.SRY NASAL ×2 (05:04→17:37)
[2021-12-18] MEDS: Nystatin Powder 15gm Bottle 1 APPLIC TOPICAL ×3 (05:05→23:35)
[2021-12-18] MEDS: Loratadine 10 MG Tablet PO (05:05)
[2021-12-18] MEDS: Menthol/Lanolin/Calamine/Znox 113 GM Tube 1 APPLIC TOPICAL ×3 (05:09→23:34)
[2021-12-18 06:01] LABS: Absolute Lymphocyte Count 1.09 X10^3/uL (0.83-4.51); Absolute Neutrophil Count 4.8 X10^3/uL (2.0-7.7); Basophil# 0.03 X10^3/uL; Basophil% 0.5 % (0-1); Eosinophil# 0.01 X10^3/uL; Eosinophils% 0.2 % (0-5); Hematocrit 36.7 % (37-47); Hemoglobin 11.1 g/dL (12.0-15.0); Lymphocyte # 1.09 X10^3/ul (0.83-4.51); Lymphocyte % 17.4 % (19-41); Mean Corp Hgb Conc 30.2 g/dL (32-36); Mean Corpuscular Hgb 31.9 pg (27.0-32.0); Mean Corpuscular Volume 105.5 fL (81-99); Mean Platelet Vol. 10.8 fl (6.2-12.0); Monocyte# 0.32 X10^3/uL; Monocyte% 5.1 % (0-10); NRBC Flagged by Analyzer 0 % (0-5); Neutrophil # 4.77 X10^3/uL (2.7-7.7); Neutrophil % 76.3 % (47-70); Platelet Count 212 K/mm3 (150-450); RBC Distribution Width CV 14.5 % (11.6-14.6); RBC Distribution Width SD 56.6 fl (35.1-43.9); Red Blood Count 3.48 M/mm3 (4.2-5.4); White Blood Count 6.3 K/mm3 (4.4-11.0)
[2021-12-18 06:33] LABS: Anion Gap 1 (5-15); BUN 27 mg/dL (7-18); Chloride 105 mmol/L (98-107); Creatinine, Serum 0.97 mg/dL (0.55-1.02); EST Glomerular Filtration Rate 61 mL/min (>60); Est Glom Filt Rate - Afr Amer 74 mL/min (>60); Estimated Creatinine Clearance 40.98 ml/min; Glucose 98 mg/dL (74-106); Potassium 4.4 mmol/L (3.5-5.1); Sodium Level 139 mmol/L (136-145)
[2021-12-18] MEDS: Gabapentin 300 MG Capsule PO ×3 (08:09→23:34)
[2021-12-18] MEDS: Acetaminophen 500 MG Tablet 1000 MG PO (08:09)
[2021-12-18] MEDS: Potassium Chloride Oral Tablet 20 MEQ PO (08:11)
--- NOTE | 2021-12-18 14:50 | NURSING ---
UPDATED PT AND FAMILY MEMBER THAT A STAFF MEMBER TESTED POSITIVE FOR COVID TODAY.
[2021-12-18 15:45] VITALS: BP 159/79; PULSE 58; RESP 20; TEMP 35.9; O2SAT 95
[2021-12-18] MEDS: Ibuprofen 600 MG Tablet PO (17:36)
[2021-12-18] MEDS: Furosemide 40 MG Tablet PO (23:34)
[2021-12-19] MEDS: Senna/Docusate Sodium 1 Tablet PO (05:24)
[2021-12-19] MEDS: Pantoprazole Sodium 40 MG Tablet PO (05:24)
[2021-12-19] MEDS: Loratadine 10 MG Tablet PO (05:24)
[2021-12-19] MEDS: Fluticasone 0.05% 1 SPRAY NASAL.SRY NASAL ×2 (05:24→17:01)
[2021-12-19] MEDS: Levothyroxine 150 MCG Tablet PO (05:24)
[2021-12-19] MEDS: DULoxetine Hcl 30 MG Capsule PO (05:24)
[2021-12-19] MEDS: Menthol/Lanolin/Calamine/Znox 113 GM Tube 1 APPLIC TOPICAL ×2 (05:25→14:30)
[2021-12-19] MEDS: Nystatin Powder 15gm Bottle 1 APPLIC TOPICAL ×2 (05:25→14:30)
[2021-12-19] MEDS: Gabapentin 300 MG Capsule PO ×2 (08:14→17:01)
[2021-12-19] MEDS: Ibuprofen 600 MG Tablet PO ×2 (08:17→14:32)
--- NOTE | 2021-12-19 12:21 | CASEMGMT ---
Social Work Spoke with pt about DC plans. Pt feels she is ready to DC home 12/23. Family getting ramp installed. IDT agreeable. Pt requesting [facility]. Referral made for PT/OT. Referral made to [facility] [place] [facility] for 22 in width w/c. Family to transport home. Plan: DC home alone with family support 12/23, [facility] PT/OT, w/c AMINA GonzalezW
[2021-12-19 14:06] VITALS: BP 120/74; PULSE 62; RESP 14; TEMP 36.4; O2SAT 90
--- NOTE | 2021-12-19 14:26 | DS.PCM_ITS ---
Providers Date of Admission: 12/03/21 Primary Care Physician: Dr. Vianca Trujillo DO Consultations 12/09/21 17:21 Consult: Pain Management Routine Consulting Provider: Alison York Reason for Consult: Chronic pain EMERGENT Consult: No MD Notified: Yes Date Notified: 12/09/21 Time Notified: 17:22 Method of Notification: phone call Reason For Visit: GENERALIZED WEAKNESS Diagnosis Discharge Diagnosis (1) Debility: Status: Acute Code(s): R53.81 - Other malaise (2) Weakness: Status: Acute Code(s): R53.1 - Weakness (3) Degenerative joint disease of cervical spine: Status: Chronic Code(s): M47.812 - Spondylosis without myelopathy or radiculopathy, cervical region (4) Rheumatoid arthritis: Status: Chronic Code(s): M06.9 - Rheumatoid arthritis, unspecified Qualifiers: Rheumatoid arthritis location: unspecified site Rheumatoid factor presence: unspecified presence Qualified Code(s): M06.9 - Rheumatoid arthritis, unspecified (5) Hypothyroidism: Status: Chronic Code(s): E03.9 - Hypothyroidism, unspecified Qualifiers: Hypothyroidism type: unspecified Qualified Code(s): E03.9 - Hypothyroidism, unspecified (6) Venous stasis dermatitis: Code(s): I87.2 - Venous insufficiency (chronic) (peripheral) Qualifiers: Laterality: bilateral Qualified Code(s): I87.2 - Venous insufficiency (chronic) (peripheral) (7) Morbid obesity with BMI of 60.0-69.9, adult: Status: Acute Code(s): E66.01 - Morbid (severe) obesity due to excess calories; Z68.44 - Body mass index [BMI] 60.0-69.9, adult Medications at Discharge Home Medications ibuprofen 600 mg tablet 600 mg PO Q6H PRN PRN Pain 1-10 Or Fever #0 tabs 12/03/21 menthol 0.44 %-zinc oxide 20.6 % topical ointment (Calmoseptine) 1 applic topical TID Skin 12/03/21 nystatin 100,000 unit/gram topical powder (Nyamyc) 1 applic topical TID Skin 12/03/21 acetaminophen 500 mg tablet 1,000 mg PO Q6H PRN PRN Pain Score 1-5 #0 tabs 12/19/21 duloxetine 30 mg capsule,delayed release 30 mg PO DAILY 30 days #30 caps 12/19/21 fluticasone propionate 50 mcg/actuation nasal spray,suspension 1 spray NASAL BID 30 days #16 grams 12/19/21 furosemide 40 mg tablet 40 mg PO QHS 30 days #30 tabs 12/19/21 gabapentin 300 mg capsule 300 mg PO BIDCM 30 days #60 caps 12/19/21 gabapentin 300 mg capsule 300 mg PO QHS 30 days #30 caps 12/19/21 levothyroxine 150 mcg tablet 150 mcg PO DAILY@0600 Thyroid 30 days #30 tabs 12/19/21 pantoprazole 40 mg tablet,delayed release 40 mg PO DAILY 30 days #30 tabs peg [id number] 1 %-0.2 %-0.2 % eye drops (Artificial Tears ([id number])) 2 drp EACH EYE Q1H PRN DRY EYES #0 mL 12/19/21 Hospital Course Operations None Procedures - (Right knee intra-articular joint injection. ) Summary of Care Provided Minutes Spent on Discharge: 35 Hospital Course: ?66 year old female with below past medical history hospitalized for weakness secondary to uncontrolled rheumatoid arthritis, myxedema, admitted to TCU with debility, here for rehabilitation, strengthening, prior to discharge home alone. 12/15/2021 Dr. York performed right knee intra-articular joint injection. Discharge home alone with family support 12/23/2021, [facility] PT/OT, Wheelchair. Physical Exam Const alert General Appearance: cooperative HEENT normocephalic Eyes PERRL and EOMs intact bilaterally Neck supple, no JVD and no carotid bruits Resp normal respiratory effort, normal air movement and clear to auscultation bilaterally Cardio regular rate and regular rhythm GI normal to inspection, nondistended, normoactive bowel sounds, non-tender and non-distended Extremity normal capillary refill General Extremity: Negative for edema Skin no rashes or lesions noted General Skin Exam: no breakdown Psych affect normal Appearance: appropriate Weight / BMI Weight Weight: 140.795 kg Body Mass Index (BMI) 61.7 ABG / Lab / Microbiology Data Result Diagrams: 12/18/21 05:36 12/18/21 05:36 Microbiology: Microbiology 12/15/21 14:18 Nasal Secretion SARS-CoV-2 Antigen (Rapid) - Final 12/10/21 05:35 Nasal Secretion SARS-CoV-2 Antigen (Rapid) - Final D/C Instructions Discharge Diet: No restrictions Discharge Activity: Return to Normal Activity, May Shower and Use Walker Weight Bearing Status: Weight bearing as tolerated Call your doctor if you observe: Fever of 101 or Higher, Inability to urinate, Inability to have a bowel movement, Shortness of breath, Dizziness, Fainting spells, Chest pain and Uncontrolled pain Additional Instructions: Discharge home alone with family support 12/23/2021, [facility] PT/OT, Wheelchair. Please Follow Up With: f/u with rheumatology When: As scheduled. Meaningful Use Info Meaningful Use Diagnoses (Choose all that apply): None applicable Discharge Plan Admission Admit Date/Time: 12/03/21 14:26 Primary Reason for Your Visit: Debility. Attending Provider: Favian Ventura Chi Primary Care Provider: Vianca Trujillo Consulting Providers: Alison York Instructions Additional Instructions / Restrictions: Discharge home alone with family support 12/23/2021, [facility] PT/OT, Wheelchair. Discharge Orders/Prescriptions Prescriptions: New acetaminophen 500 mg Tablet 1,000 mg PO Q6H PRN PRN (Reason: Pain Score 1-5) Qty: 0 0RF furosemide 40 mg Tablet 40 mg PO QHS 30 Days Qty: 30 0RF pantoprazole 40 mg Tablet,Delayed Release (Dr/Ec) 40 mg PO DAILY 30 Days Qty: 30 0RF gabapentin 300 mg Capsule 300 mg PO BIDCM 30 Days Qty: 60 0RF gabapentin 300 mg Capsule 300 mg PO QHS 30 Days Qty: 30 0RF fluticasone propionate 50 mcg/actuation [place],Suspension 1 spray NASAL BID 30 Days Qty: 16 0RF Artificial Tears([id number]) 1-0.2-0.2 % Drops 2 drp EACH EYE Q1H PRN (Reason: DRY EYES) Qty: 0 0RF duloxetine 30 mg Capsule,Delayed Release(Dr/Ec) 30 mg PO DAILY 30 Days Qty: 30 0RF Continued ibuprofen 600 mg Tablet 600 mg PO Q6H PRN PRN (Reason: Pain 1-10 Or Fever) Qty: 0 0RF nystatin [Nyamyc] 100,000 unit/gram powder 1 applic topical TID Protocol: *Topical Application Instructions APPLICATION INSTRUCTIONS: To folds menthol-zinc oxide [Calmoseptine] 0.44-20.6 % ointment 1 applic topical TID Protocol: *Topical Application Instructions APPLICATION INSTRUCTIONS: To coccygeal area levothyroxine 150 mcg tablet 150 mcg PO DAILY@0600 30 Days Qty: 30 0RF Discontinued acetaminophen [Tylenol] 325 mg Tablet 650 mg PO Q6H PRN PRN (Reason: Pain Score 1-10/Temp > 100.7 F) Qty: 0 0RF sennosides-docusate sodium [Stool Softener-Stimulant Laxat] 8.6-50 mg Tablet 2 tab PO BID PRN PRN (Reason: Constipation) Qty: 0 0RF prednisone 20 mg tablet 20 mg PO BID Rx Instructions: 20 mg twice daily x3 days, then 30 mg daily x3 days, then 20 mg daily x3 days, then discontinue pantoprazole 40 mg tablet,delayed release (DR/EC) 40 mg PO DAILY gabapentin 100 mg capsule 200 mg PO TIDCM Referrals / Follow Up: Alison York MD [STAFF PHYSICIAN] - (after discharge ) Vianca Trujillo DO [Primary Care Provider] - Disposition Disposition (needs filled in before D/C Order can be placed): Home Health Service
[2021-12-20] MEDS: Menthol/Lanolin/Calamine/Znox 113 GM Tube 1 APPLIC TOPICAL ×4 (00:25→22:48)
[2021-12-20] MEDS: Furosemide 40 MG Tablet PO ×2 (00:28→22:47)
[2021-12-20] MEDS: Gabapentin 300 MG Capsule PO ×4 (00:28→22:47)
[2021-12-20] MEDS: Nystatin Powder 15gm Bottle 1 APPLIC TOPICAL ×4 (00:29→22:48)
[2021-12-20] MEDS: HYDROcodone Bitartrate/Apap 5/325 Tablet PO (02:54)
[2021-12-20] MEDS: DULoxetine Hcl 30 MG Capsule PO (05:57)
[2021-12-20] MEDS: Pantoprazole Sodium 40 MG Tablet PO (05:57)
[2021-12-20] MEDS: Levothyroxine 150 MCG Tablet PO (05:57)
[2021-12-20] MEDS: Loratadine 10 MG Tablet PO (05:57)
[2021-12-20] MEDS: Senna/Docusate Sodium 1 Tablet PO (05:57)
[2021-12-20] MEDS: Fluticasone 0.05% 1 SPRAY NASAL.SRY NASAL ×2 (05:58→16:11)
[2021-12-20] MEDS: Ibuprofen 600 MG Tablet PO (10:36)
[2021-12-20 15:43] VITALS: BP 116/65; PULSE 57; RESP 16; TEMP 36.3; O2SAT 92
[2021-12-21] MEDS: Fluticasone 0.05% 1 SPRAY NASAL.SRY NASAL ×2 (05:53→16:47)
[2021-12-21] MEDS: Pantoprazole Sodium 40 MG Tablet PO (05:54)
[2021-12-21] MEDS: Levothyroxine 150 MCG Tablet PO (05:54)
[2021-12-21] MEDS: Senna/Docusate Sodium 1 Tablet PO (05:54)
[2021-12-21] MEDS: DULoxetine Hcl 30 MG Capsule PO (05:54)
[2021-12-21] MEDS: Loratadine 10 MG Tablet PO (05:54)
[2021-12-21] MEDS: Nystatin Powder 15gm Bottle 1 APPLIC TOPICAL ×2 (05:55→16:46)
[2021-12-21] MEDS: Menthol/Lanolin/Calamine/Znox 113 GM Tube 1 APPLIC TOPICAL ×2 (05:56→16:46)
[2021-12-21] MEDS: Gabapentin 300 MG Capsule PO ×3 (07:48→22:02)
[2021-12-21 15:13] VITALS: BP 122/58; PULSE 68; RESP 16; TEMP 36.4; O2SAT 92
[2021-12-21] MEDS: Ibuprofen 600 MG Tablet PO (16:55)
[2021-12-22] MEDS: Furosemide 40 MG Tablet PO ×2 (00:02→23:52)
[2021-12-22] MEDS: Ibuprofen 600 MG Tablet PO ×2 (00:02→13:54)
[2021-12-22] MEDS: Loratadine 10 MG Tablet PO (06:20)
[2021-12-22] MEDS: Nystatin Powder 15gm Bottle 1 APPLIC TOPICAL ×2 (06:20→17:08)
[2021-12-22] MEDS: Levothyroxine 150 MCG Tablet PO (06:21)
[2021-12-22] MEDS: Senna/Docusate Sodium 1 Tablet PO (06:21)
[2021-12-22] MEDS: Fluticasone 0.05% 1 SPRAY NASAL.SRY NASAL ×2 (06:21→17:12)
[2021-12-22] MEDS: DULoxetine Hcl 30 MG Capsule PO (06:21)
[2021-12-22] MEDS: Menthol/Lanolin/Calamine/Znox 113 GM Tube 1 APPLIC TOPICAL ×2 (06:22→17:10)
[2021-12-22] MEDS: Pantoprazole Sodium 40 MG Tablet PO (06:22)
[2021-12-22] MEDS: Gabapentin 300 MG Capsule PO ×3 (07:45→23:53)
[2021-12-22 08:40] VITALS: PULSE 58; RESP 18; O2SAT 93
[2021-12-22 11:36] VITALS: BP 120/58; PULSE 63; RESP 20; TEMP 35.9; O2SAT 95
[2021-12-22] MEDS: HYDROcodone Bitartrate/Apap 5/325 Tablet PO (20:56)
[2021-12-23] MEDS: Loratadine 10 MG Tablet PO (04:06)
[2021-12-23] MEDS: Menthol/Lanolin/Calamine/Znox 113 GM Tube 1 APPLIC TOPICAL (04:07)
[2021-12-23] MEDS: DULoxetine Hcl 30 MG Capsule PO (04:08)
[2021-12-23] MEDS: Fluticasone 0.05% 1 SPRAY NASAL.SRY NASAL (04:08)
[2021-12-23] MEDS: Pantoprazole Sodium 40 MG Tablet PO (04:09)
[2021-12-23] MEDS: Nystatin Powder 15gm Bottle 1 APPLIC TOPICAL (04:09)
[2021-12-23] MEDS: Levothyroxine 150 MCG Tablet PO (04:10)
[2021-12-23] MEDS: Ibuprofen 600 MG Tablet PO (04:11)
[2021-12-23] MEDS: Gabapentin 300 MG Capsule PO (07:46)
--- NOTE | 2021-12-23 08:28 | CASEMGMT ---
Social Work BIMS and PHQ-9 completed for MDS assessment. Donna Razo, ADVANCED MA[employer]GER [employer]
[2021-12-23] MEDS: Acetaminophen 500 MG Tablet 1000 MG PO (09:00)
[2021-12-23 09:04] VITALS: BP 111/64; PULSE 72; RESP 18; TEMP 36.6; O2SAT 92
[2021-12-23 09:05] VITALS: PULSE 72; RESP 18; O2SAT 92
[2021-12-23 10:11] VITALS: BP 111/64; PULSE 72; RESP 18; TEMP 36.6; O2SAT 92
== END 2021-12-23 10:00 | disposition home health service (06) | DRG 552 ==
PROVIDERS: Admitting Provider Family Medicine Geriatric Medicine; PCP Family Medicine; Visit Provider Family Medicine Geriatric Medicine
DX: M47.22 Other spondylosis with radiculopathy, cervical region (principal); Z68.44 Body mass index [BMI] 60.0-69.9, adult; R62.7 Adult failure to thrive; M06.9 Rheumatoid arthritis, unspecified; B35.4 Tinea corporis; E03.9 Hypothyroidism, unspecified; E66.01 Morbid (severe) obesity due to excess calories; M46.1 Sacroiliitis, not elsewhere classified; I87.2 Venous insufficiency (chronic) (peripheral); M17.11 Unilateral primary osteoarthritis, right knee; I89.0 Lymphedema, not elsewhere classified; M17.0 Bilateral primary osteoarthritis of knee; Z87.891 Personal history of nicotine dependence; Z79.899 Other long term (current) drug therapy; Z79.890 Hormone replacement therapy; Z23 Encounter for immunization
CPT/HCPCS: 0004A; 36415; 73030; 80048; 85025; 87426; 87811; 91300; 97110; 97116; 97162; 97166; 97530; 97535; 97802; G0009; 90670; A4216

== ENCOUNTER → 2022-01-06 | Outpatient (CLI) | payer MEDICARE, SELFPAY ==
[2022-01-06 15:32] LABS: ALB/GLOB Ratio 0.9 RATIO (0.9-2.4); AST(SGOT) 12 U/L (15-37); Alanine Aminotransfer ALT/SGPT 15 U/L (13-56); Albumin, Serum 3.2 g/dL (3.2-5.0); Alkaline Phosphatase 90 U/L (45-117); Anion Gap 4 (5-15); BUN 19 mg/dL (7-18); BUN/Creat Ratio 24.8 RATIO (10-20); Calcium,Total 9.4 mg/dL (8.5-10.1); Chloride 106 mmol/L (98-107); Creatinine, Serum 0.76 mg/dL (0.55-1.02); EST Glomerular Filtration Rate 80 mL/min (>60); Est Glom Filt Rate - Afr Amer 97 mL/min (>60); Globulin 3.6 g/dL (2.2-4.2); Glucose 96 mg/dL (74-106); Potassium 3.9 mmol/L (3.5-5.1); Protein, Total 6.8 g/dL (6.4-8.2); Sodium Level 141 mmol/L (136-145)
== END | disposition home or self-care (01) ==
LOC: MTLAB 13:04
PROVIDERS: PCP Family Medicine; Referring Provider Family Medicine; Visit Provider Family Medicine
DX: Z51.81 Encounter for therapeutic drug level monitoring (principal); E87.6 Hypokalemia
CPT/HCPCS: 36415; 80053

== ENCOUNTER → 2022-03-11 | Outpatient (CLI) | payer MEDICARE, SELFPAY ==
[2022-03-11 11:12] LABS: Absolute Lymphocyte Count 0.67 X10^3/uL (0.83-4.51); Absolute Neutrophil Count 3.9 X10^3/uL (2.0-7.7); Basophil# 0.03 X10^3/uL; Basophil% 0.6 % (0-1); Eosinophil# 0.32 X10^3/uL; Eosinophils% 6.1 % (0-5); Hematocrit 36.9 % (37-47); Lymphocyte # 0.67 X10^3/ul (0.83-4.51); Lymphocyte % 12.8 % (19-41); Mean Corp Hgb Conc 29.8 g/dL (32-36); Mean Corpuscular Hgb 29.1 pg (27.0-32.0); Mean Corpuscular Volume 97.6 fL (81-99); Mean Platelet Vol. 10.9 fl (6.2-12.0); Monocyte# 0.33 X10^3/uL; Monocyte% 6.3 % (0-10); NRBC Flagged by Analyzer 0 % (0-5); Neutrophil # 3.85 X10^3/uL (2.7-7.7); Neutrophil % 73.8 % (47-70); Platelet Count 245 K/mm3 (150-450); RBC Distribution Width CV 14.7 % (11.6-14.6); Red Blood Count 3.78 M/mm3 (4.2-5.4); White Blood Count 5.2 K/mm3 (4.4-11.0)
[2022-03-11 11:14] LABS: Erythrocyte Sedimentation Rate 77 mm/hr (0-30)
[2022-03-11 12:05] LABS: ALB/GLOB Ratio 0.7 RATIO (0.9-2.4); AST(SGOT) 16 U/L (15-37); Alanine Aminotransfer ALT/SGPT 18 U/L (13-56); Albumin, Serum 2.9 g/dL (3.2-5.0); Alkaline Phosphatase 89 U/L (45-117); Anion Gap 6 (5-15); BUN 14 mg/dL (7-18); BUN/Creat Ratio 19.9 RATIO (10-20); Calcium,Total 9.5 mg/dL (8.5-10.1); Chloride 108 mmol/L (98-107); Cholesterol 154 mg/dL (200); EST Glomerular Filtration Rate 88 mL/min (>60); Est Glom Filt Rate - Afr Amer 107 mL/min (>60); Free T3 1.4 pg/mL (2.18-3.98); Globulin 3.9 g/dL (2.2-4.2); Glucose 90 mg/dL (74-106); High Density Lipoprotein 46 mg/dL; Potassium 4.2 mmol/L (3.5-5.1); Protein, Total 6.8 g/dL (6.4-8.2); Sodium Level 141 mmol/L (136-145); T4 Free Direct 1.64 ng/dL (0.76-1.46); Triglycerides 75 mg/dL; Very Low Density Lipoprotein 15 mg/dL (5-40)
[2022-03-14 17:11] LABS: CCP IgG Antibodies > 250 units (0-19)
== END | disposition home or self-care (01) ==
PROVIDERS: PCP Family Medicine; Visit Provider Family Medicine
DX: E03.9 Hypothyroidism, unspecified (principal); M06.9 Rheumatoid arthritis, unspecified; E78.5 Hyperlipidemia, unspecified; Z51.81 Encounter for therapeutic drug level monitoring
CPT/HCPCS: 36415; 80053; 80061; 84439; 84443; 84481; 85025; 85652; 86140; 86200; 86431

== ENCOUNTER → 2022-06-18 | Outpatient (CLI) | payer MEDICARE, SELFPAY ==
[2022-06-18 15:01] LABS: Absolute Lymphocyte Count 0.74 X10^3/uL (0.83-4.51); Absolute Neutrophil Count 6.7 X10^3/uL (2.0-7.7); Basophil# 0.03 X10^3/uL; Basophil% 0.4 % (0-1); Eosinophil# 0.24 X10^3/uL; Eosinophils% 2.9 % (0-5); Hematocrit 37.9 % (37-47); Hemoglobin 11.4 g/dL (12.0-15.0); Lymphocyte # 0.74 X10^3/ul (0.83-4.51); Mean Corp Hgb Conc 30.1 g/dL (32-36); Mean Corpuscular Hgb 28.1 pg (27.0-32.0); Mean Corpuscular Volume 93.3 fL (81-99); Mean Platelet Vol. 10.3 fl (6.2-12.0); Monocyte% 6.1 % (0-10); NRBC Flagged by Analyzer 0 % (0-5); Neutrophil # 6.66 X10^3/uL (2.7-7.7); Neutrophil % 81.2 % (47-70); Platelet Count 279 K/mm3 (150-450); RBC Distribution Width CV 15.9 % (11.6-14.6); Red Blood Count 4.06 M/mm3 (4.2-5.4); White Blood Count 8.2 K/mm3 (4.4-11.0)
[2022-06-18 15:27] LABS: ALB/GLOB Ratio 0.8 RATIO (0.9-2.4); AST(SGOT) 17 U/L (15-37); Alanine Aminotransfer ALT/SGPT 17 U/L (13-56); Albumin, Serum 3.1 g/dL (3.2-5.0); Alkaline Phosphatase 79 U/L (45-117); Anion Gap 7 (5-15); BUN 15 mg/dL (7-18); Calcium,Total 9.1 mg/dL (8.5-10.1); Chloride 104 mmol/L (98-107); Creatinine, Serum 0.65 mg/dL (0.55-1.02); EST Glomerular Filtration Rate 96 mL/min (>60); Est Glom Filt Rate - Afr Amer 117 mL/min (>60); Free T3 1.4 pg/mL (2.18-3.98); Globulin 3.9 g/dL (2.2-4.2); Glucose 99 mg/dL (74-106); Potassium 3.7 mmol/L (3.5-5.1); Sodium Level 139 mmol/L (136-145); T4 Free Direct 1.69 ng/dL (0.76-1.46); Thyroid Stim Hormone (TSH) 9.94 uIU/mL (0.358-3.74)
[2022-06-18 15:33] LABS: Erythrocyte Sedimentation Rate 90 mm/hr (0-30)
[2022-06-20 21:02] LABS: CCP IgG Antibodies > 250 units (0-19)
== END | disposition home or self-care (01) ==
LOC: BFHLAB 13:07
PROVIDERS: PCP Family Medicine; Visit Provider Family Medicine
DX: E03.9 Hypothyroidism, unspecified (principal); M06.9 Rheumatoid arthritis, unspecified; Z51.81 Encounter for therapeutic drug level monitoring
CPT/HCPCS: 36415; 80053; 84439; 84443; 84481; 85025; 85652; 86140; 86200; 86431

== ENCOUNTER → 2022-09-24 | Outpatient (CLI) | payer MEDICARE, SELFPAY ==
[2022-09-24 15:14] LABS: Erythrocyte Sedimentation Rate 77 mm/hr (0-30)
[2022-09-24 15:16] LABS: Absolute Lymphocyte Count 0.98 X10^3/uL (0.83-4.51); Absolute Neutrophil Count 6.1 X10^3/uL (2.0-7.7); Basophil# 0.04 X10^3/uL; Basophil% 0.5 % (0-1); Eosinophil# 0.27 X10^3/uL; Eosinophils% 3.4 % (0-5); Hematocrit 38.2 % (37-47); Hemoglobin 11.5 g/dL (12.0-15.0); Lymphocyte # 0.98 X10^3/ul (0.83-4.51); Lymphocyte % 12.2 % (19-41); Mean Corp Hgb Conc 30.1 g/dL (32-36); Mean Corpuscular Hgb 28.5 pg (27.0-32.0); Mean Corpuscular Volume 94.8 fL (81-99); Mean Platelet Vol. 9.9 fl (6.2-12.0); Monocyte# 0.56 X10^3/uL; NRBC Flagged by Analyzer 0 % (0-5); Neutrophil # 6.13 X10^3/uL (2.7-7.7); Neutrophil % 76.5 % (47-70); Platelet Count 264 K/mm3 (150-450); RBC Distribution Width CV 15.9 % (11.6-14.6); RBC Distribution Width SD 54.9 fl (35.1-43.9); Red Blood Count 4.03 M/mm3 (4.2-5.4)
[2022-09-24 16:11] LABS: ALB/GLOB Ratio 0.8 RATIO (0.9-2.4); AST(SGOT) 16 U/L (15-37); Alanine Aminotransfer ALT/SGPT 15 U/L (13-56); Albumin, Serum 3.2 g/dL (3.2-5.0); Alkaline Phosphatase 82 U/L (45-117); Anion Gap 7 (5-15); BUN 20 mg/dL (7-18); BUN/Creat Ratio 28.3 RATIO (10-20); Calcium,Total 9.3 mg/dL (8.5-10.1); Chloride 106 mmol/L (98-107); Creatinine, Serum 0.71 mg/dL (0.55-1.02); EST Glomerular Filtration Rate 88 mL/min (>60); Est Glom Filt Rate - Afr Amer 106 mL/min (>60); Free T3 1.7 pg/mL (2.18-3.98); Globulin 3.9 g/dL (2.2-4.2); Glucose 102 mg/dL (74-106); Protein, Total 7.1 g/dL (6.4-8.2); Sodium Level 140 mmol/L (136-145); T4 Free Direct 1.78 ng/dL (0.76-1.46); Thyroid Stim Hormone (TSH) 4.04 uIU/mL (0.358-3.74)
== END | disposition home or self-care (01) ==
LOC: BFHLAB 12:59
PROVIDERS: PCP Family Medicine; Referring Provider Family Medicine; Visit Provider Family Medicine
DX: E03.9 Hypothyroidism, unspecified (principal); M06.9 Rheumatoid arthritis, unspecified; I89.0 Lymphedema, not elsewhere classified; Z51.81 Encounter for therapeutic drug level monitoring
CPT/HCPCS: 36415; 80053; 84439; 84443; 84481; 85025; 85652; 86140; 86431

== ENCOUNTER → 2022-12-23 | Outpatient (CLI) | payer MEDICARE, SELFPAY ==
[2022-12-23 15:04] LABS: Absolute Lymphocyte Count 0.71 X10^3/uL (0.83-4.51); Absolute Neutrophil Count 8.5 X10^3/uL (2.0-7.7); Basophil# 0.04 X10^3/uL; Basophil% 0.4 % (0-1); Eosinophil# 0.01 X10^3/uL; Eosinophils% 0.1 % (0-5); Hemoglobin 11.9 g/dL (12.0-15.0); Lymphocyte # 0.71 X10^3/ul (0.83-4.51); Lymphocyte % 7.5 % (19-41); Mean Corp Hgb Conc 29.8 g/dL (32-36); Mean Corpuscular Hgb 27.9 pg (27.0-32.0); Mean Corpuscular Volume 93.9 fL (81-99); Monocyte% 2.1 % (0-10); NRBC Flagged by Analyzer 0 % (0-5); Neutrophil % 89.3 % (47-70); Platelet Count 293 K/mm3 (150-450); RBC Distribution Width CV 15.3 % (11.6-14.6); RBC Distribution Width SD 52.8 fl (35.1-43.9); Red Blood Count 4.26 M/mm3 (4.2-5.4); White Blood Count 9.5 K/mm3 (4.4-11.0)
[2022-12-23 15:07] LABS: Erythrocyte Sedimentation Rate 85 mm/hr (0-30)
[2022-12-23 16:11] LABS: ALB/GLOB Ratio 0.8 RATIO (0.9-2.4); AST(SGOT) 15 U/L (15-37); Alanine Aminotransfer ALT/SGPT 17 U/L (13-56); Albumin, Serum 3.1 g/dL (3.2-5.0); Alkaline Phosphatase 79 U/L (45-117); Anion Gap 5 (5-15); BUN 16 mg/dL (7-18); BUN/Creat Ratio 21.7 RATIO (10-20); Calcium,Total 9.3 mg/dL (8.5-10.1); Chloride 107 mmol/L (98-107); Creatinine, Serum 0.74 mg/dL (0.55-1.02); EST Glomerular Filtration Rate 83 mL/min (>60); Est Glom Filt Rate - Afr Amer 101 mL/min (>60); Free T3 1.3 pg/mL (2.18-3.98); Glucose 104 mg/dL (74-106); Potassium 4.1 mmol/L (3.5-5.1); Protein, Total 7.1 g/dL (6.4-8.2); Sodium Level 141 mmol/L (136-145); T4 Free Direct 1.42 ng/dL (0.76-1.46)
== END | disposition home or self-care (01) ==
LOC: BFHLAB 11:40
PROVIDERS: PCP Family Medicine; Visit Provider Family Medicine
DX: Z51.81 Encounter for therapeutic drug level monitoring (principal); M06.9 Rheumatoid arthritis, unspecified; E03.9 Hypothyroidism, unspecified; I89.0 Lymphedema, not elsewhere classified
CPT/HCPCS: 36415; 80053; 84439; 84443; 84481; 85025; 85652; 86140; 86431

== ENCOUNTER → 2023-04-01 | Outpatient (CLI) | payer MEDICARE, SELFPAY ==
[2023-04-01 12:12] LABS: Absolute Lymphocyte Count 1.32 X10^3/uL (0.83-4.51); Absolute Neutrophil Count 5.2 X10^3/uL (2.0-7.7); Basophil# 0.05 X10^3/uL; Basophil% 0.7 % (0-1); Eosinophil# 0.19 X10^3/uL; Eosinophils% 2.6 % (0-5); Hematocrit 42.7 % (37-47); Hemoglobin 12.8 g/dL (12.0-15.0); Lymphocyte # 1.32 X10^3/ul (0.83-4.51); Lymphocyte % 18.1 % (19-41); Mean Corpuscular Hgb 28.3 pg (27.0-32.0); Mean Corpuscular Volume 94.5 fL (81-99); Monocyte# 0.48 X10^3/uL; Monocyte% 6.6 % (0-10); NRBC Flagged by Analyzer 0 % (0-5); Neutrophil % 71.2 % (47-70); Platelet Count 262 K/mm3 (150-450); RBC Distribution Width CV 15.3 % (11.6-14.6); RBC Distribution Width SD 53.5 fl (35.1-43.9); Red Blood Count 4.52 M/mm3 (4.2-5.4); White Blood Count 7.3 K/mm3 (4.4-11.0)
[2023-04-01 12:31] LABS: ALB/GLOB Ratio 0.8 RATIO (0.9-2.4); AST(SGOT) 13 U/L (15-37); Alanine Aminotransfer ALT/SGPT 20 U/L (13-56); Albumin, Serum 3.2 g/dL (3.2-5.0); Alkaline Phosphatase 133 U/L (45-117); Anion Gap 4 (5-15); BUN 21 mg/dL (7-18); BUN/Creat Ratio 28.3 RATIO (10-20); Bilirubin, Direct 0.11 mg/dL (0.00-0.30); Calcium,Total 9.2 mg/dL (8.5-10.1); Chloride 110 mmol/L (98-107); Creatinine, Serum 0.74 mg/dL (0.55-1.02); EST Glomerular Filtration Rate 83 mL/min (>60); Est Glom Filt Rate - Afr Amer 100 mL/min (>60); Free T3 1.2 pg/mL (2.18-3.98); Globulin 4.2 g/dL (2.2-4.2); Glucose 83 mg/dL (74-106); Protein, Total 7.4 g/dL (6.4-8.2); Sodium Level 142 mmol/L (136-145); T4 Free Direct 1.21 ng/dL (0.76-1.46); Thyroid Stim Hormone (TSH) 5.46 uIU/mL (0.358-3.74)
[2023-04-01 12:34] LABS: Hepatitis B Surface Antibody Non-Reactive
[2023-04-03 22:08] LABS: HEPATITIS B SURFACE AG Negative (Negative); Hep C Antibodies Non Reactive (Non Reactive); Hepatitis A IgM Antibody Negative (Negative); Hepatitis B Core AB IgM Negative (Negative); QNTFERON TB Mitogen Value > 10.00 IU/mL (.); QNTFERON TB1+ Ag Value 0.17 IU/mL (.); QNTFERON TB2+ Ag Value 0.18 IU/mL (.); QNTIFERON TB Positive Criteria Negative (Negative)
== END | disposition home or self-care (01) ==
LOC: LAB 08:20
PROVIDERS: PCP Family Medicine; Referring Provider Family Medicine; Visit Provider Family Medicine
DX: M06.9 Rheumatoid arthritis, unspecified (principal); M05.9 Rheumatoid arthritis with rheumatoid factor, unspecified; E03.9 Hypothyroidism, unspecified; Z11.9 Encounter for screening for infectious and parasitic diseases, unspecified; Z51.81 Encounter for therapeutic drug level monitoring; Z79.60 Long term (current) use of unspecified immunomodulators and immunosuppressants
CPT/HCPCS: 36415; 80053; 80074; 82248; 84439; 84443; 84481; 85025; 86480; 86706

== ENCOUNTER → 2023-09-08 | Outpatient (CLI) | payer MEDICARE, SELFPAY ==
--- OUTSIDE RECORDS SUMMARY | 2023-09-08 09:58 | XMS RPT_ITS | CCD ---
Author Name Unknown Address [address] [place] [address] Organization [facility] Care Team Providers Care Garment Sorter Name Role Phone Vianca Hall DO Primary Care Provider ALICIA STODDARD Attending Unavailable VIANCA HALL Primary Care Unavailable KEYLA CASEY Attending Unavailable Allergies Allergy Classification Reported Allergen(s) Allergy Type Date of Onset Reaction(s) Facility (4 sources) environmental [Other] Propensity to adverse reactions 8 [facility] Work Phone: (1 source) OTHER; Translations: [OTHER] Propensity to adverse reactions (disorder) [address] [place] [address] Repository Medications Completed/Discontinued Medications Medication Drug Class(es) Dates Sig (Normalized) Sig (Original) 0.4 ml adalimumab 100 mg/ml auto-injector (4 sources) Tumor Necrosis Factor Zoya Start: 02-09-2023 adalimumab (HUMIRA,CF, PEN) 40 mg/0.4 mL pen kit Inject 1 pen (40 mg) subcutaneously every 2 weeks. 6 Each 3 02/09/2023 Active Problems Active Problems Problem Classification Problem Date Documented Da te Episodic/Chronic Nutritional deficiencies (4 sources) Vitamin D deficiency; Translations: [Vitamin D deficiency, unspecified] Onset: 11-11-2008 11-11-2008 Chronic Rheumatoid arthritis and related disease (8 sources) Rheumatoid arthritis, unspecified; Translations: [Rheumatoid arthritis] Onset: 06-09-2007 06-09-2007 Chronic Thyroid disorders (4 sources) Hypothyroidism; Translations: [Hypothyroidism, unspecified] Onset: 07-05-2007 03-01-2008 Chronic Past or Other Problems Problem Classification Problem Date Documented Da te Episodic/Chronic Other connective tissue disease (4 sources) Muscle pain; Translations: [Myalgia and myositis, unspecified] Onset: 09-27-2007 09-27-2007 Episodic Other screening for suspected conditions (not mental disorders or infectious disease) (4 sources) Mammography abnormal; Translations: [Other abnormal and inconclusive findings on diagnostic imaging of breast] Onset: 03-29-2007 03-29-2007 Episodic Results Test Name Value Interpretation Reference Range Facil ity Encounters Encounter Date Encounter Type Care Provider Facility Start: 07-20-2023 End: 07-20-2023 ambulatory ALICIA STODDARD Facility:[facility] Start: 04-01-2023 ambulatory Keyla Casey MD Work Phone: Rheumatology Procedures Date Procedure Procedure Detail Performing Clinician Start: 03-08-2007 Mammography Tarynnigel fletcher [facility] Start: 07-05-2004 Lipid 1996 panel - S juma or Plasma Keyla Casey MD Work Phone: Plan of Treatment Date Care Activity Detail Author Start: 03-05-2023 Influenza vaccination C [facility] Start: 07-05-2022 ADVANCE DIRECTIVE DISCUSSION ADVANCE DIRECTIVE DISCUSSION [facility] Start: 07-05-2022 DEPRESSION ASSESSMENT DEPRESSION ASS ESSMENT [facility] Start: 02-03-2022 COVID-19 VACCINE (4 - Booster for Pfizer series) COVID-19 VACCINE (4 - Booster for Pfizer series) [facility] Start: 02-03-2022 COVID-19 VACCINE (4 - Pfizer risk series) COVID-19 VACCINE (4 - Pfizer risk series) [facility] Start: 2020 BONE DENSITY BONE DENSITY [facility] Start: 2020 Bone Density Screening Bone Density Screening [facility] Start: 07-05-2009 Lipid 1996 panel - S juma or Plasma Lipid Screening [facility] Start: 07-05-2009 LIPID SCREEN LIPID SCREEN [facility] Start: 03-08-2008 Mammography [facility] Start: 07-05-2007 DIABETES SCREEN DIABETES SCREEN [facility] Start: 07-05-2007 Diabetes Screening Diabetes Screenin g [facility] Start: 2000 COLOGUARD (FIT-DNA) COLOGUARD (FIT-D NA) [facility] Start: 2000 Colonoscopy COLONOSCOPY [facility] Start: 2000 COLORECTAL CANCER SCREENING COLORECTAL CANCER SCREENING [facility] Start: [address] COLONOGRAPHY [facility] Start: 2000 FECAL OCCULT BLOOD FECAL OCCULT BLOO D [facility] Start: 2000 SIGMOIDOSCOPY SIGMOIDOSCOPY [facility] Start: 1974 SHINGRIX VACCINE (1 of 2) SHINGRIX V ACCINE (1 of 2) [facility] Start: 1974 Urine microalbumin profile [facility] Start: 1973 ANNUAL PCP TEAM STAGE RIGGER JULIO DISEASE VISIT ANNUAL PCP TEAM CHRONIC DISEASE VISIT [facility] Start: 1973 HEPATITIS C SCREENING HEPATITIS C SC LUIS ALFREDO [facility] Start: 1961 Pneumococcal Vaccine : 65+ (1 - PCV) Pneumococcal Vaccine: 65+ (1 - PCV) [facility] Start: 1961 PNEUMOCOCCAL: 65+ (1 - PCV) PNEUMOCOCCAL: 65+ (1 - PCV) [facility] Immunizations Immunization Date Immunization Notes Care Provider Dc duran 04-11-2018 influenza virus vacc ine, unspecified formulation Keyla Casey MD Work Phone: [facility] Payers Date Payer Category Payer Medicare MEDICARE MEDICAR E A AND B [id number] 2009-Present [phone] [place] [address] Medicare 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 (finding) [facility] Start: 02-15-2022 End: 02-09-2023 Tobacco use panel [facility] Adult Depression Screening Assessment 0 [facility] Start: 02-24-2007 Tobacco Comment interested in quitting, hasn't tried anything in past [facility] Start: 1955 Sex Assigned At Not on file C [facility] Clinical Notes 07-14-2007 to 07-20-2023 Nanette King MA - 04/01/2023 1:41 PM EDTTelephone Encounter - Nanette King MA - 03/01/2023 2:35 PM EDTOJillian reeder - 02/12/2023 3:37 PM EDT Note Date & Type Note Facility 07-20-2023 Note HNO ID: [id number] Author: ALICIA STODDARD APRN.ASSOCIATE SALES Service: ? Author Type: Nurse Practitioner Type: Progress Notes Filed: 07/20/2023 10:00 Note Text: Chief complaint: RA HPI: To review, Maycol Brown is a 68 year old female here with Lisa Orozco - In Jul, diagnosed with RA by Dr. Madrid in [place] after presenting with bilateral wrist, MCP and PIP pain/swelling. Started on HCQ and MTX 7 tabs PO weekly. Was on arava initially as well for many years. Feels like they helped some - From -, on xeljanz XR 11mg/day which helped significantly. It was stopped because of paperwork logistics - In October, with uncontrolled RA not on associated medications. Referred to rheumatology. - at [facility], reports joint soreness and stiffness, hard to move especially affecting the hands and knees. - Taking prednisone 60mg/day taper over 2 weeks. - Morning stiffness lasts all day - Takes advil for pain which helps PAST MEDICAL HISTORY Diagnosis Date NEGATIVE MEDICAL HISTORY Rheumatoid arthritis(714.0) 06/2007 Unspecified hypothyroidism 07/2007 Fibromyalgia PAST SURGICAL HISTORY Procedure Laterality Date TONSILLECTOMY PRIMARY/SECONDARY Tonsillectomy ALLERGIES Allergen Reactions Environmental [Othe* INTERVAL HISTORY This Team Access Model visit is a virtual encounter. It required patient-provider interaction for the medical decision making as documented below. I have communicated my name and active licensure. The patient's identity and physical location were verified at the time of this visit. Either the patient or their legal patient financial representative has been informed of the risks and benefits of -- and alternatives to -- treatment through a remote evaluation and consents to proceed with the evaluation remotely. She is a patient of Dr. Casey. She is accompanied by her niece for the visit. She started humira in 04/2023. She tolerates it well. She reports 25% improvement of her joint symptoms. She is now able to make a complete fist with both hands. She reports joint symptoms worsen with weather changes. Sites of pain: shoulders, knees, b/l hands, pain rated 5/10 Joint swelling: knees, hands EMS: stiffness is lasting all day No recent infections. Tolerating meds. Answers submitted by the patient for this visit: Review of Systems Rheumatology (Submitted on 07/20/2023) Fever : No Recent unintentional weight change: No Eye pain: No Eye redness: No Vision Disturbance: No Eye Dryness: No Nosebleeds: No Sores in your mouth: No Trouble Swallowing: No Dry Mouth: No Chest pain: No Leg Swelling: Yes A cough: No Shortness of breath: No Pain with breathing: No Heartburn: No Abdominal pain: No Diarrhea: No Black tarry stools: No Blood in urine: No Pain or burning with urination: No Joint pain or stiffness: Yes Muscle weakness: Yes Muscle aches: Yes Joint swelling: Yes Morning Stiffness in Joints: Yes A rash: No Skin Color Changes: No Hair Loss: No Nail Changes: No Headaches: No Numbness: No Memory Loss: No Swollen Glands: No Current Outpatient Medications Medication Sig levothyroxine 200 mcg cap Take 200 mcg by mouth daily before breakfast. liothyronine (CYTOMEL) 5 mcg tablet Take 5 mcg by mouth twice daily. duloxetine HCl (DULOXETINE ORAL) Take 30 mg by mouth three times daily. gabapentin (NEURONTIN) 400 mg capsule Take 400 mg by mouth three times daily. oxybutynin ER (DITROPAN XL) 15 mg 24 hr Extended Rel Tab Take 15 mg by mouth once daily. predniSONE (DELTASONE) 20 mg tablet Take 20 mg by mouth once daily. adalimumab (HUMIRA,CF, PEN) 40 mg/0.4 mL pen kit Inject 1 pen (40 mg) subcutaneously every 2 weeks. No current facility-administered medications for this visit. FAMILY HISTORY Problem Relation Age of Onset Heart Father [place] age 62 - Heart Brother [place] age 51- Diabetes Father Psychiatry Sister bipolar; mild schizophrenia, doing well on meds Arthritis Mother OA? Arthritis Maternal Grandmother RA Diabetes Sister M-RA, GM-RA, Sis-RA SOCIAL HISTORY: Lives in [place]. Related to our patient Lisa Orozco (Ms. Brown is Lisa's 's aunt). Not working, retired from working in a factory or office. Tobacco use: None Alcohol use: None Drug use: None PHYSICAL EXAM: CONSTITUTIONAL: Well-appearing, in NAD. EYES: No scleral icterus or conjunctivitis NEURO: Awake, alert and oriented Widespread Pain Index: 3 (0-19) Symptoms Severity Scale: 3 (0-12) WPI>7 and SS Scale>5 OR WPI 3-6 and SS Scale >9 consistent with fibromyalgia Labs reviewed and discussed with the patient: Labs done on 04/01/2023. Report given to provider for review. TEST RESULTS RANGE WBC 7.3 4.4-11.0 HGB 12.8 12.0-15.0 HCT 42.7 37-47 PLT 262 150-450 BUN 21 7-18 ALB 3.2 3.2-5.0 AST 13 15-37 ALT 20 13-56 CR 0.74 0.55-1.02 CA, total 9.2 8.5-10.1 Hep B Surf Ab Non-reactive Non (more content not included)... [facility] 04-01-2023 Nurse Note Labs done on 04/01/2023. Report given to provider for review. TEST RESULTS RANGE WBC 7.3 4.4-11.0 HGB 12.8 12.0-15.0 HCT 42.7 37-47 PLT 262 150-450 BUN 21 7-18 ALB 3.2 3.2-5.0 AST 13 15-37 ALT 20 13-56 CR 0.74 0.55-1.02 CA, total 9.2 8.5-10.1 Hep B Surf Ab Non-reactive Non-reactive: Inconsistent with immunity less than <10 Nanette King MA documented in this encounter [facility] 03-01-2023 Miscellaneous Notes Formattin g of this note might be different from the original. Form for co pay assistance faxed. (Provider portion) Confirmation received. Attempted to reach patient. No answer. Message above left on patient's voicemail. Nanette King MA documented in this encounter [facility] 02-12-2023 Note HNO ID: [id number] Author: Jillian Quezada Service: ? Author Type: ? Type: Progress Notes Filed: 02/12/2023 3:39 PM Note Text: [facility] received prescription(s) for Humira from Dr. Casey's office. Benefits investigation was conducted, indicating that a prior authorization is required by patient's insurance plan with [employer]. Encounter will be updated once prior authorization has been submitted by [facility]. Jillian Quezada CPhT [facility] 02-12-2023 Note HNO ID: [id number] Author: Taryn King RPh Service: ? Author Type: Pharmacist Type: Progress Notes Filed: 02/22/2023 5:01 PM Note Text: Humira PA was initiated and pending review. Plan Name: [employer] ([employer] Medicare) Plan Agent/Acosta: [id number] / [id number] Timeline: Tana King PharmD Clinical Pharmacist, [employer] [facility] ; Pool: [facility] Pool #: [id number] [facility] 02-12-2023 Note HNO ID: [id number] Author: Jillian Quezada Service: ? Author Type: ? Type: Progress Notes Filed: 02/23/2023 2:24 PM Note Text: [facility] received prescription(s) for Humira from Dr. Casey's office. Benefits investigation was conducted, indicating that a prior authorization is required. PA was approved with details listed below: Plan Name: [employer] Medicare/[employer] PA reference number: [id number] Approval Dates: 01/23/23-07/04/23 First copay is high (>$2200.76) due to the medicare coverage gap and future fills are expected to be ~$380.00 monthly thereafter. There is no funding available for patients diagnosis at this time. Patient will be referred to [employer] Assistance Program. Note will be update once pt is contacted. Jillian Quezada CPhT [facility] 02-12-2023 History of Presen t illness Narrative [facility] received prescription(s) for Humira from Dr. Casey's office. Benefits investigation was conducted, indicating that a prior authorization is required by patient's insurance plan with [employer]. Encounter will be updated once prior authorization has been submitted by [facility]. Jillian Quezada CPhT [facility] documented in this encounter [facility] 02-09-2023 Note HNO ID: [id number] Author: Keyla Casey MD Service: ? Author Type: Physician Type: Progress Notes Filed: 02/09/2023 3:45 PM Note Text: On 02/09/2023, I had the pleasure of seeing Maycol Brown at the [facility]. Maycol Brown was referred for an opinion and advice regarding RA. My findings and final recommendations will be communicated to the requesting health care provider by way of the shared medical record for internal providers or letter via the [employer] for external providers. Chief complaint: RA HPI: To review, Maycol Brown is a 67 year old female here with Lisa Orozco - In Jul, diagnosed with RA by Dr. Madrid in [place] after presenting with bilateral wrist, MCP and PIP pain/swelling. Started on HCQ and MTX 7 tabs PO weekly. Was on arava initially as well for many years. Feels like they helped some - From -, on xeljanz XR 11mg/day which helped significantly. It was stopped because of paperwork logistics - In October, with uncontrolled RA not on associated medications. Referred to rheumatology. - Today, reports joint soreness and stiffness, hard to move especially affecting the hands and knees. - Taking prednisone 60mg/day taper over 2 weeks. - Morning stiffness lasts all day - Takes advil for pain which helps PAST MEDICAL HISTORY Diagnosis Date NEGATIVE MEDICAL HISTORY Rheumatoid arthritis(714.0) 06/2007 Unspecified hypothyroidism 07/2007 Fibromyalgia PAST SURGICAL HISTORY Procedure Laterality Date TONSILLECTOMY PRIMARY/SECONDARY Tonsillectomy ALLERGIES Allergen Reactions Environmental [Othe* MEDICATIONS: Current Outpatient Medications Medication Sig levothyroxine 200 mcg cap Take 200 mcg by mouth daily before breakfast. liothyronine (CYTOMEL) 5 mcg tablet Take 5 mcg by mouth twice daily. duloxetine HCl (DULOXETINE ORAL) Take 30 mg by mouth three times daily. gabapentin (NEURONTIN) 400 mg capsule Take 400 mg by mouth three times daily. oxybutynin ER (DITROPAN XL) 15 mg 24 hr Extended Rel Tab Take 15 mg by mouth once daily. predniSONE (DELTASONE) 20 mg tablet Take 20 mg by mouth once daily. No current facility-administered medications for this visit. FAMILY HISTORY Problem Relation Age of Onset Heart Father [place] age 62 - Heart Brother [place] age 51- Diabetes Father Psychiatry Sister bipolar; mild schizophrenia, doing well on meds Arthritis Mother OA? Arthritis Maternal Grandmother RA Diabetes Sister M-RA, GM-RA, Sis-RA SOCIAL HISTORY: Lives in [place]. Related to our patient Lisa Orozco (Ms. Brown is Lisa's 's aunt). Not working, retired from working in a factory or office. Tobacco use: None Alcohol use: None Drug use: None Review of Systems CONSTITUTION: Negative for: Fever and Recent weight change HEENT: Negative for: Nosebleeds, Mouth sores, Trouble swallowing and Dry mouth RESPIRATORY: Negative for: Cough, Shortness of breath and Pain with breathing GASTROINTESTINAL: Negative for: Melena, Diarrhea, Heartburn and Abdominal pain MUSCULOSKELETAL: Positive for: Arthralgias, Myalgias, Muscle weakness, Joint swelling and Morning Joint Stiffness NEUROLOGICAL: Positive for: Numbness Negative for: Headaches and Memory loss SKIN: Negative for: Rash, Skin changes, Hair loss and Nail changes EYES: Positive for: Eye dryness Negative for: Eye pain, Eye redness and visual disturbance CARDIOVASCULAR: Positive for: Leg swelling Negative for: Chest pain GENITOURINARY: Negative for: Dysuria and Hematuria HEMATOLOGIC/LYMPHATIC: Negative for: Swollen glands PHYSICAL EXAM: VITALS: Blood pressure 195/83, pulse (!) 55, temperature 36.8 ?C (98.3 ?F), temperature source Oral. CONSTITUTIONAL: Well-appearing, in NAD. SKIN: No rash. No sclerodactyly, calcinosis, telangiectasias, digital ulcers, or skin thickening. EYES: No scleral icterus or conjunctivitis ENT and Mouth: External ears normal. Nares normal. RESPIRATORY: Normal breath sounds, clear to auscultation. CARDIOVASCULAR: Regular rate and rhythm, no murmurs or rubs NEURO: Awake, alert and oriented, in wheelchair MUSCULOSKELETAL: JOINT APPEARANCE: No erythema or warmth of any upper or lower extremity joint. RANGE OF MOTION: Able to fully close fists bilaterally. SWOLLEN JOINTS/SYNOVITIS: No synovitis of any joint. TENDER JOINTS: Tenderness to palpation of the L>R wrists, MCPs and PIPs along with L DIPs Widespread Pain Index: 3 (0-19) Symptoms Severity Scale: 3 (0-12) WPI>7 and SS Scale>5 OR WPI 3-6 and SS Scale >9 consistent with fibromyalgia LABORATORY: *September low hgb 11.5 (<12), high ESR 77, high CRP 36.5 (<3.0) and positive RF 2080 (<15) with unremarkable WBC, Plt, Cr, ALT, ST *Jun high ESR 90, high CRP 35, positive RF 1260 and positive CCP<250 *Mar positive CCP>250 STUDIES: *Feb xray L knee- Degenerative changes are note (more content not included)... [facility] documented as of this encounter (statuses as of 02/13/2023) [facility] History of Past illness Narrative* Problem Noted Date Diagnosed Date Resolved Date Localized osteoarthrosis not specified whether primary or secondary, lower leg 07/14/2007 documented as of this encounter (statuses as of 03/02/2023) [facility] History of Past illness Narrative* Problem Noted Date Diagnosed Date Resolved Date Localized osteoarthrosis not specified whether primary or secondary, lower leg 07/14/2007 documented as of this encounter (statuses as of 04/01/2023) [facility] History of Past illness Narrative* Problem Noted Date Diagnosed Date Resolved Date Localized osteoarthrosis not specified whether primary or secondary, lower leg 07/14/2007 documented as of this encounter (statuses as of 04/02/2023) [facility] Summary Purpose Family History No Family History Records Found Advance Directives No Advanced Directives Records Found Additional Source Comments Source Comments (unrecognize d section and content) In the event this informatio n is protected by the Federal Confidentiality of Alcohol and Drug Abuse Patient Records regulations: The Federal rules restrict any use of the information to criminally investigate or prosecute any alcohol or drug abuse patient.[facility] the event this information is protected by the Federal Confidentiality of Alcohol and Drug Abuse Patient Records regulations: The Federal rules restrict any use of the information to criminally investigate or prosecute any alcohol or drug abuse patient.[facility] the event this information is protected by the Federal Confidentiality of Alcohol and Drug Abuse Patient Records regulations: The Federal rules restrict any use of the information to criminally investigate or prosecute any alcohol or drug abuse patient.[facility] the event this information is protected by the Federal Confidentiality of Alcohol and Drug Abuse Patient Records regulations: The Federal rules restrict any use of the information to criminally investigate or prosecute any alcohol or drug abuse patient.[facility] Reason for Visit (unrecogniz ed section and content) Reason Comments Research Laboratory Technician - Other RONDA Humira Reason Comments Abstract Outside lab results Care Teams (unrecognized sec tion and content) Garment Sorter Relationship Specialty Start Date End Date Vianca Hall DO Amanda [address] [place] [address] PCP - General Family Medicine 02/09/23 Garment Sorter Relationship Specialty Start Date End Date Arinirali Vianca Patel DO [address] [place], [place] [id number] PCP - General Family Medicine 02/09/23 INFORMATION SOURCE (unrecogn ized section and content) FOR RECORDS PERTAINING TO PATIENTS WHO ARE OR HAVE BEEN ENROLLED IN A CHEMICAL DEPENDENCY/SUBSTANCEABUSE PROGRAM, SOME INFORMATION MAY BE OMITTED. This clinical summary was aggregated from multiple sources. Caution should be exercised in using it in the provision of clinical care. This summary normalizes information from multiple sources, and as a consequence, information in this document may materially change the coding, format and clinical context of patient data. In addition, data may be omitted in some cases. CLINICAL DECISIONS SHOULD BE BASED ON THE PRIMARY CLINICAL RECORDS. [facility]. provides no warranty or guarantee of the accuracy or completeness of information in this document.
[2023-09-08 10:42] LABS: Absolute Lymphocyte Count 0.85 X10^3/uL (0.83-4.51); Basophil# 0.04 X10^3/uL; Basophil% 0.6 % (0-1); Eosinophil# 0.29 X10^3/uL; Eosinophils% 4.4 % (0-5); Hematocrit 42.2 % (37-47); Hemoglobin 12.7 g/dL (12.0-15.0); Lymphocyte # 0.85 X10^3/ul (0.83-4.51); Lymphocyte % 12.8 % (19-41); Mean Corp Hgb Conc 30.1 g/dL (32-36); Mean Platelet Vol. 10.6 fl (6.2-12.0); Monocyte# 0.44 X10^3/uL; Monocyte% 6.6 % (0-10); NRBC Flagged by Analyzer 0 % (0-5); Neutrophil # 4.99 X10^3/uL (2.7-7.7); Neutrophil % 75.3 % (47-70); Platelet Count 235 K/mm3 (150-450); RBC Distribution Width CV 14.7 % (11.6-14.6); RBC Distribution Width SD 50.4 fl (35.1-43.9); Red Blood Count 4.54 M/mm3 (4.2-5.4); White Blood Count 6.6 K/mm3 (4.4-11.0)
[2023-09-08 11:08] LABS: ALB/GLOB Ratio 0.8 RATIO (0.9-2.4); AST(SGOT) 18 U/L (15-37); Alanine Aminotransfer ALT/SGPT 17 U/L (13-56); Albumin, Serum 3.1 g/dL (3.2-5.0); Alkaline Phosphatase 95 U/L (45-117); Anion Gap 6 (5-15); BUN 18 mg/dL (7-18); BUN/Creat Ratio 20.6 RATIO (10-20); Calcium,Total 9.1 mg/dL (8.5-10.1); Chloride 107 mmol/L (98-107); Creatinine, Serum 0.87 mg/dL (0.55-1.02); EST Glomerular Filtration Rate 68 mL/min (>60); Est Glom Filt Rate - Afr Amer 83 mL/min (>60); Free T3 2.3 pg/mL (2.18-3.98); Globulin 3.7 g/dL (2.2-4.2); Glucose 106 mg/dL (74-106); Potassium 4.1 mmol/L (3.5-5.1); Protein, Total 6.8 g/dL (6.4-8.2); Sodium Level 142 mmol/L (136-145); T4 Free Direct 1.63 ng/dL (0.76-1.46)
[2023-09-13 11:07] LABS: QNTFERON TB Mitogen Value > 10.00 IU/mL (.); QNTFERON TB Nil Value 0.06 IU/mL (.); QNTFERON TB1+ Ag Value 0.15 IU/mL (.); QNTFERON TB2+ Ag Value 0.16 IU/mL (.); QNTIFERON TB Positive Criteria Negative (Negative)
== END | disposition home or self-care (01) ==
LOC: LAB 09:28
PROVIDERS: PCP Family Medicine; Referring Provider Family Medicine; Visit Provider Family Medicine
DX: Z51.81 Encounter for therapeutic drug level monitoring (principal); M06.9 Rheumatoid arthritis, unspecified; E03.9 Hypothyroidism, unspecified
CPT/HCPCS: 36415; 80053; 84439; 84443; 84481; 85025; 86480

== ENCOUNTER → 2024-01-31 | Outpatient (CLI) | payer MEDICARE, SELFPAY ==
[2024-01-31 17:00] LABS: ALB/GLOB Ratio 0.8 RATIO (0.9-2.4); AST(SGOT) 15 U/L (15-37); Alanine Aminotransfer ALT/SGPT 19 U/L (13-56); Albumin, Serum 3.2 g/dL (3.2-5.0); Alkaline Phosphatase 88 U/L (45-117); Anion Gap 3 (5-15); BUN 22 mg/dL (7-18); BUN/Creat Ratio 23.3 RATIO (10-20); CRP 8.83 mg/L (0.0-3.0); Calcium,Total 9.4 mg/dL (8.5-10.1); Chloride 110 mmol/L (98-107); Creatinine, Serum 0.95 mg/dL (0.55-1.02); EST Glomerular Filtration Rate 62 mL/min (>60); Est Glom Filt Rate - Afr Amer 75 mL/min (>60); Free T3 2.2 pg/mL (2.18-3.98); Globulin 3.8 g/dL (2.2-4.2); Glucose 78 mg/dL (74-106); Potassium 4.2 mmol/L (3.5-5.1); Sodium Level 142 mmol/L (136-145); T4 Free Direct 1.52 ng/dL (0.76-1.46)
== END | disposition home or self-care (01) ==
PROVIDERS: PCP Family Medicine; Referring Provider Family Medicine; Visit Provider Family Medicine
DX: M06.9 Rheumatoid arthritis, unspecified (principal); E03.9 Hypothyroidism, unspecified; Z51.81 Encounter for therapeutic drug level monitoring
CPT/HCPCS: 80053; 84439; 84443; 84481; 86140

== ENCOUNTER → 2024-04-13 | Outpatient (CLI) | payer MEDICARE, SELFPAY ==
[2024-04-13 15:18] LABS: Absolute Lymphocyte Count 0.65 X10^3/uL (0.83-4.51); Absolute Neutrophil Count 7.4 X10^3/uL (2.0-7.7); Basophil# 0.05 X10^3/uL; Basophil% 0.6 % (0-1); Eosinophil# 0.03 X10^3/uL; Eosinophils% 0.4 % (0-5); Hematocrit 44.7 % (37-47); Hemoglobin 13.1 g/dL (12.0-15.0); Lymphocyte # 0.65 X10^3/ul (0.83-4.51); Lymphocyte % 7.6 % (19-41); Mean Corp Hgb Conc 29.3 g/dL (32-36); Mean Corpuscular Hgb 29.1 pg (27.0-32.0); Mean Corpuscular Volume 99.3 fL (81-99); Mean Platelet Vol. 10.1 fl (6.2-12.0); Monocyte# 0.34 X10^3/uL; NRBC Flagged by Analyzer 0 % (0-5); Neutrophil # 7.43 X10^3/uL (2.7-7.7); Neutrophil % 86.6 % (47-70); Platelet Count 320 K/mm3 (150-450); RBC Distribution Width CV 13.9 % (11.6-14.6); RBC Distribution Width SD 51.4 fl (35.1-43.9); White Blood Count 8.6 K/mm3 (4.4-11.0)
[2024-04-13 15:25] LABS: Erythrocyte Sedimentation Rate 30 mm/hr (0-30)
[2024-04-13 15:46] LABS: ALB/GLOB Ratio 0.7 RATIO (0.9-2.4); AST(SGOT) 16 U/L (15-37); Alanine Aminotransfer ALT/SGPT 13 U/L (13-56); Albumin, Serum 3.2 g/dL (3.2-5.0); Alkaline Phosphatase 92 U/L (45-117); Anion Gap 7 (5-15); BUN 15 mg/dL (7-18); BUN/Creat Ratio 16.8 RATIO (10-20); Calcium,Total 9.6 mg/dL (8.5-10.1); Chloride 105 mmol/L (98-107); EST Glomerular Filtration Rate 66 mL/min (>60); Est Glom Filt Rate - Afr Amer 80 mL/min (>60); Free T3 2.8 pg/mL (2.18-3.98); Globulin 4.3 g/dL (2.2-4.2); Glucose 94 mg/dL (74-106); Potassium 4.2 mmol/L (3.5-5.1); Protein, Total 7.5 g/dL (6.4-8.2); Sodium Level 139 mmol/L (136-145); T4 Free Direct 1.71 ng/dL (0.76-1.46)
== END | disposition home or self-care (01) ==
LOC: BFHLAB 13:16
PROVIDERS: PCP Family Medicine; Referring Provider Family Medicine; Visit Provider Family Medicine
DX: E03.9 Hypothyroidism, unspecified (principal); M06.9 Rheumatoid arthritis, unspecified; Z51.81 Encounter for therapeutic drug level monitoring
CPT/HCPCS: 36415; 80053; 84439; 84443; 84481; 85025; 85652; 86140

== ENCOUNTER → 2024-08-24 | Outpatient (CLI) | payer MEDICARE, SELFPAY ==
[2024-08-24 19:40] LABS: Absolute Lymphocyte Count 1.11 X10^3/uL (0.83-4.51); Absolute Neutrophil Count 3.7 X10^3/uL (2.0-7.7); Basophil# 0.04 X10^3/uL; Basophil% 0.7 % (0-1); Eosinophil# 0.25 X10^3/uL; Eosinophils% 4.4 % (0-5); Hematocrit 40.9 % (37-47); Lymphocyte # 1.11 X10^3/ul (0.83-4.51); Lymphocyte % 19.6 % (19-41); Mean Corp Hgb Conc 29.3 g/dL (32-36); Mean Corpuscular Hgb 28.6 pg (27.0-32.0); Mean Corpuscular Volume 97.4 fL (81-99); Mean Platelet Vol. 10.5 fl (6.2-12.0); Monocyte# 0.54 X10^3/uL; Monocyte% 9.5 % (0-10); NRBC Flagged by Analyzer 0 % (0-5); Neutrophil # 3.71 X10^3/uL (2.7-7.7); Neutrophil % 65.4 % (47-70); Platelet Count 218 K/mm3 (150-450); RBC Distribution Width CV 14.2 % (11.6-14.6); RBC Distribution Width SD 50.9 fl (35.1-43.9); White Blood Count 5.7 K/mm3 (4.4-11.0)
[2024-08-24 19:50] LABS: Erythrocyte Sedimentation Rate 41 mm/hr (0-30)
[2024-08-24 19:52] LABS: ALB/GLOB Ratio 0.9 RATIO (0.9-2.4); AST(SGOT) 14 U/L (15-37); Alanine Aminotransfer ALT/SGPT 14 U/L (13-56); Alkaline Phosphatase 86 U/L (45-117); Anion Gap 3 (5-15); BUN 17 mg/dL (7-18); BUN/Creat Ratio 19.5 RATIO (10-20); Calcium,Total 9.2 mg/dL (8.5-10.1); Chloride 107 mmol/L (98-107); Creatinine, Serum 0.87 mg/dL (0.55-1.02); EST Glomerular Filtration Rate 69 mL/min (>60); Est Glom Filt Rate - Afr Amer 83 mL/min (>60); Free T3 2.2 pg/mL (2.18-3.98); Globulin 3.3 g/dL (2.2-4.2); Glucose 82 mg/dL (74-106); Potassium 3.6 mmol/L (3.5-5.1); Protein, Total 6.3 g/dL (6.4-8.2); Sodium Level 143 mmol/L (136-145); T4 Free Direct 1.63 ng/dL (0.76-1.46)
== END | disposition home or self-care (01) ==
PROVIDERS: PCP Family Medicine; Referring Provider Family Medicine; Visit Provider Family Medicine
DX: E03.9 Hypothyroidism, unspecified (principal); M06.9 Rheumatoid arthritis, unspecified; Z51.81 Encounter for therapeutic drug level monitoring
CPT/HCPCS: 80053; 84439; 84443; 84481; 85025; 85652; 86140

== ENCOUNTER → 2024-11-20 | Outpatient (CLI) | payer MEDICARE, SELFPAY ==
[2024-11-20 15:22] LABS: Absolute Lymphocyte Count 1.27 X10^3/uL (0.83-4.51); Absolute Neutrophil Count 4.7 X10^3/uL (2.0-7.7); Basophil# 0.05 X10^3/uL; Basophil% 0.7 % (0-1); Eosinophil# 0.26 X10^3/uL; Eosinophils% 3.8 % (0-5); Hematocrit 40.6 % (37-47); Hemoglobin 12.1 g/dL (12.0-15.0); Lymphocyte # 1.27 X10^3/ul (0.83-4.51); Lymphocyte % 18.4 % (19-41); Mean Corp Hgb Conc 29.8 g/dL (32-36); Mean Platelet Vol. 10.2 fl (6.2-12.0); Monocyte# 0.52 X10^3/uL; Monocyte% 7.5 % (0-10); NRBC Flagged by Analyzer 0 % (0-5); Neutrophil # 4.74 X10^3/uL (2.7-7.7); Neutrophil % 68.9 % (47-70); Platelet Count 231 K/mm3 (150-450); RBC Distribution Width CV 14.7 % (11.6-14.6); RBC Distribution Width SD 50.8 fl (35.1-43.9); Red Blood Count 4.32 M/mm3 (4.2-5.4); White Blood Count 6.9 K/mm3 (4.4-11.0)
[2024-11-20 16:36] LABS: ALB/GLOB Ratio 1.1 RATIO (0.9-2.4); AST(SGOT) 19 U/L (<=31); Alanine Aminotransfer ALT/SGPT 18 U/L (<=34); Albumin, Serum 3.3 g/dL (3.4-4.8); Alkaline Phosphatase 92 U/L (35-104); Anion Gap 12 (5-15); BUN 20 mg/dL (4-19); BUN/Creat Ratio 23.9 RATIO (10-20); Calcium,Total 9.1 mg/dL (7.6-11.0); Carbon Dioxide 26.1 mmol/L (21.0-32.0); Chloride 105 mmol/L (98-108); Cholesterol 155 mg/dL (<=200); Creatinine, Serum 0.85 mg/dL (0.70-1.20); EST Glomerular Filtration Rate 74 (>60); Free T3 2.6 pg/mL (2.18-3.98); Glucose 79 mg/dL (70-99); High Density Lipoprotein 46 mg/dL; Low Density Lipoprotein Calc. 94 mg/dL; Potassium 3.5 mmol/L (3.3-5.1); Protein, Total 6.3 g/dL (5.9-8.4); Sodium Level 143 mmol/L (133-145); Total Bilirubin 0.38 mg/dL (0.00-1.30); Triglycerides 77 mg/dL; Very Low Density Lipoprotein 15 mg/dL (5-40); cholesterol:hdl ratio screen 3.41
[2024-11-21 17:46] LABS: Erythrocyte Sedimentation Rate 50 mm/hr (0-30)
== END | disposition home or self-care (01) ==
LOC: LABSPEC 13:56
PROVIDERS: PCP Family Medicine; Visit Provider Family Medicine
DX: E03.9 Hypothyroidism, unspecified (principal); M06.9 Rheumatoid arthritis, unspecified; Z51.81 Encounter for therapeutic drug level monitoring; E78.5 Hyperlipidemia, unspecified
CPT/HCPCS: 80053; 80061; 84439; 84443; 84481; 85025; 85652; 86140

== ENCOUNTER → 2025-04-30 | Outpatient (CLI) | payer MEDICARE, SELFPAY ==
[2025-04-30 15:33] LABS: Hematocrit 45.0 % (37-47); Hemoglobin 13.5 g/dL (12.0-15.0); Immature Granulocytes Count 0.040 X10^3/uL (0.0-0.0); Mean Corp Hgb Conc 30.0 g/dL (32-36); Mean Corpuscular Volume 98.3 fL (81-99); Mean Platelet Vol. 11.3 fl (6.2-12.0); NRBC Flagged by Analyzer 0 % (0-5); Platelet Count 213 K/mm3 (150-450); RBC Distribution Width CV 15.0 % (11.6-14.6); RBC Distribution Width SD 54.5 fl (35.1-43.9); Red Blood Count 4.58 M/mm3 (4.2-5.4); White Blood Count 8.7 K/mm3 (4.4-11.0)
[2025-04-30 15:59] LABS: AST(SGOT) 20 U/L (<=31); Alanine Aminotransfer ALT/SGPT 15 U/L (<=34); Albumin, Serum 4.0 g/dL (3.4-4.8); Alkaline Phosphatase 107 U/L (35-104); Anion Gap 15 (5-15); BUN 21 mg/dL (4-19); BUN/Creat Ratio 21.6 RATIO (10-20); CRP 27.80 mg/L (0.0-3.0); Calcium,Total 10.0 mg/dL (7.6-11.0); Carbon Dioxide 25.5 mmol/L (21.0-32.0); Chloride 106 mmol/L (98-108); Free T3 2.4 pg/mL (2.18-3.98); Globulin 2.9 g/dL (2.2-4.2); Glucose 96 mg/dL (70-99); Potassium 4.0 mmol/L (3.3-5.1)
== END | disposition home or self-care (01) ==
LOC: LABSPEC 12:57
PROVIDERS: PCP Family Medicine; Visit Provider Family Medicine
DX: E03.9 Hypothyroidism, unspecified (principal); M06.9 Rheumatoid arthritis, unspecified; Z51.81 Encounter for therapeutic drug level monitoring
CPT/HCPCS: 80053; 84439; 84443; 84481; 85025; 85652; 86140

== ENCOUNTER → 2025-05-17 | Outpatient (CLI) | payer MEDICARE, SELFPAY ==
[2025-05-17 18:44] LABS: Vitamin D,25 Hydroxy 49.2 ng/mL (30-100)
== END | disposition home or self-care (01) ==
LOC: LABSPEC 15:58
PROVIDERS: PCP Family Medicine; Visit Provider Family Medicine
DX: R73.01 Impaired fasting glucose (principal); E55.9 Vitamin D deficiency, unspecified
CPT/HCPCS: 82306; 83036